=== PATIENT | male | born 1945 | race Caucasian/White ===

== ENCOUNTER → 2016-08-22 | Outpatient (CLI) | payer OTHER, BC ==
[~2016-08-22] MED LIST: ASPI81TA28 PO; ATOR-24 PO; CHOL1000 PO; FENO160T PO; GABA-113 PO; HYDR-3419 PO; INSU32MI13 SC; INSU70IN2 SC; METO50TA17 PO; MULT-506 PO; NVLG SC; OMEG10007 PO; PRT40 PO; RIVA1TAB4 PO; SERT50TA PO
[2016-08-22 18:23] LABS: ALT/SGPT 31 U/L (12-78); AST/SGOT 26 U/L (15-37); BLOOD UREA NITROGEN 23 mg/dl (7-18); BUN/CREATININE RATIO 13.3 (10-20); CALCIUM 9.5 mg/dl (8.5-10.1); CARBON DIOXIDE 23 mmol/L (21-32); CHLORIDE 109 mmol/L (98-107); CHOLESTEROL 141 mg/dl (0-200); GLUCOSE 87 mg/dl (70-99); POTASSIUM 4.5 mmol/L (3.5-5.1); SODIUM 141 mmol/L (136-145)
[2016-08-22 18:25] LABS: ALKALINE PHOSPHATASE 53 U/L (45-117); CHOLESTEROL/HDL RATIO 3.8; HDL CHOLESTEROL 37 mg/dl; LDL CHOLESTEROL CALCULATED 69 mg/dl; TRIGLYCERIDES 174 mg/dl (0-150); VERY LOW DENSITY LIPOPROT CALC 35 mg/dl
[2016-08-23 06:33] LABS: ESTIMATED AVERAGE GLUCOSE 263 mg/dl; HA1C FLAG Normal (Normal)
== END | disposition home or self-care (01) ==
LOC: C.LABPVFM 11:59
PROVIDERS: ATTEND Family Medicine
DX: E11.40 Type 2 diabetes mellitus with diabetic neuropathy, unspecified (principal); K21.0 Gastro-esophageal reflux disease with esophagitis; R53.83 Other fatigue; E11.59 Type 2 diabetes mellitus with other circulatory complications; I48.91 Unspecified atrial fibrillation

== ENCOUNTER → 2016-11-10 | Outpatient (CLI) | payer OTHER, BC ==
[2016-11-10 18:53] LABS: ALT/SGPT 53 U/L (12-78); AST/SGOT 63 U/L (15-37); BLOOD UREA NITROGEN 27 mg/dl (7-18); BUN/CREATININE RATIO 16.1 (10-20); CALCIUM 9.5 mg/dl (8.5-10.1); CARBON DIOXIDE 22 mmol/L (21-32); CHLORIDE 108 mmol/L (98-107); GLUCOSE 223 mg/dl (70-99); POTASSIUM 5.7 mmol/L (3.5-5.1); SODIUM 138 mmol/L (136-145)
[2016-11-10 18:56] LABS: ALKALINE PHOSPHATASE 55 U/L (45-117)
[2016-11-11 05:54] LABS: ESTIMATED AVERAGE GLUCOSE 292 mg/dl; HA1C FLAG Normal (Normal)
== END | disposition home or self-care (01) ==
LOC: C.LABPVFM 12:54
PROVIDERS: ATTEND Family Medicine
DX: E11.65 Type 2 diabetes mellitus with hyperglycemia (principal); I10 Essential (primary) hypertension

== ENCOUNTER → 2016-11-23 | Outpatient (CLI) | payer OTHER, BC | END | disposition home or self-care (01) | LOC: C.LABPVFM 11:56 | PROVIDERS: ATTEND Family Medicine | DX: E87.5 Hyperkalemia (principal) ==

== ENCOUNTER → 2016-11-29 | Outpatient (CLI) | payer OTHER, BC ==
--- NOTE | 2016-11-29 11:10 | DIAGNOSTIC IMAGING REPORT ---
RENAL ULTRASOUND HISTORY: Renal insufficiency R79.89 Elevated serum [id number] COMPARISON: None. FINDINGS: Right kidney: Maximum dimension 12.0 cm. Mild renal cortical scarring. No evidence for hydronephrosis. Left kidney: Maximum dimension 12.0 cm. Normal corticomedullary differentiation and cortical thickness. Bladder: No bladder wall thickening. The bilateral ureteral jets were identified. IMPRESSION: Mild renal cortical scarring of the right kidney. Otherwise normal study. No evidence for hydronephrosis. Electronically signed by: Balbir Trejo M.D. 11/29/2016 11:09 AM Dictated Date/Time: 11/29/2016 11:08 AM
== END | disposition home or self-care (01) ==
LOC: C.ULTR 10:12
PROVIDERS: ATTEND Family Medicine
DX: R79.89 Other specified abnormal findings of blood chemistry (principal)

== ENCOUNTER → 2017-01-31 | Outpatient (CLI) | payer OTHER, BC ==
[2017-01-31 17:54] LABS: CHOLESTEROL/HDL RATIO 4.5
[2017-01-31 17:57] LABS: URINE APPEARANCE CLEAR (CLEAR); URINE BILIRUBIN NEG (NEG); URINE COLOR YELLOW; URINE EPITHELIAL CELL AUTO 0-5 /lpf (0-5); URINE NITRITE NEG (NEG); URINE SPECIFIC GRAVITY 1.017 (1.000-1.030); UROBILINOGEN NEG (NEG); ZZUR CULT IF INDIC CLEAN CATCH NO
[2017-01-31 17:58] LABS: URINE TOTAL PROTEIN < 5.0 mg/dl (0-11.9)
[2017-01-31 18:00] LABS: MANUAL MICROSCOPIC REQUIRED? NO; REVIEW REQ? NO
[2017-01-31 18:14] LABS: BLOOD UREA NITROGEN 29 mg/dl (7-18); BUN/CREATININE RATIO 14.3 (10-20); CALCIUM 9.7 mg/dl (8.5-10.1); CARBON DIOXIDE 25 mmol/L (21-32); CHLORIDE 103 mmol/L (98-107); GLUCOSE 437 mg/dl (70-99); MAGNESIUM 1.8 mg/dl (1.8-2.4); PHOSPHORUS 3.4 mg/dl (2.5-4.9); SODIUM 136 mmol/L (136-145)
[2017-01-31 18:29] LABS: BETA-HYDROXYBUTYRATE 1.03 mg/dL (0.2-2.81)
--- NOTE | 2017-02-07 08:12 | CODING QUERY MEDICAL NECESSITY ---
CQSUPPORTING DIAGNOSIS NEEDED A supporting diagnosis is required for the test/procedure performed on this patient in order for us to be reimbursed by the patient's insurance. Please provide a supporting diagnosis for the following test/procedure listed below next to the test name along with your signature. *If there is no additional diagnosis for this patient that would support the following test/procedure please document that below next to the test/procedure. Test(s)/Procedure(s) that require a supporting diagnosis: STEPH 01/31/17 VITAMIN D TEST Provider Signature: Date: Thank you Steffi Vines [facility] Information Management Once completed, please kindly fax back to [phone] For questions please call [phone]
== END | disposition home or self-care (01) ==
LOC: C.LABPVFM 14:22
PROVIDERS: ATTEND Internal Medicine Cardiovascular Disease
DX: N18.9 Chronic kidney disease, unspecified (principal); E78.5 Hyperlipidemia, unspecified

== ENCOUNTER → 2017-05-08 | Outpatient (CLI) | payer OTHER, BC ==
--- NOTE | 2017-05-08 12:14 | DIAGNOSTIC IMAGING REPORT ---
ABDOMEN COMPLETE (US) CLINICAL HISTORY: 71 years-old Male presenting with ASCITES. TECHNIQUE: Real-time grayscale and limited color Doppler ultrasound imaging of the abdomen was performed. COMPARISON: CT from 05/06/2016. FINDINGS: Pancreas: Largely obscured due to overlying bowel gas. Liver: Hyperechogenic parenchyma with heterogeneous echotexture, likely indicating fibrosis. The liver measures 16 cm in maximal sagittal dimension. No sonographic evidence of hepatic mass. Main portal vein patent with normal directional flow. However, the left portal vein does not demonstrate color Doppler flow and may be occluded. Biliary: No intrahepatic biliary ductal dilatation. Common bile duct measures up to 4 mm in diameter. Gallbladder: Possible small gallstones near the gallbladder neck. No abnormal gallbladder distention, gallbladder wall thickening, or pericholecystic fluid or inflammatory change. Spleen: Hyperechogenic portion of the superior pole the spleen likely correlates to the site of prior infarct. The spleen is mildly enlarged, measuring 14.6 cm in length. Kidneys: Normal in size and echogenicity. Right kidney measures 11.4 cm, and left kidney measures 11.5 cm. No hydronephrosis. Vasculature: Abdominal aorta and IVC not visualized secondary to overlying bowel gas. Ascites: None. IMPRESSION: 1. Findings consistent with hepatic fibrosis/cirrhosis. Portal hypertension evidenced by splenomegaly. 2. Findings concerning for thrombosis of the left portal vein, although the main portal vein appears patent with normal directional flow. 3. Chronic splenic infarct. 4. No evidence of ascites. The report will be called/faxed according to standard departmental protocol. Electronically signed by: Kris Nichols M.D. 05/08/2017 12:12 PM Dictated Date/Time: 05/08/2017 12:08 PM
== END | disposition home or self-care (01) ==
LOC: C.ULTR 11:23
PROVIDERS: ATTEND Internal Medicine Gastroenterology
DX: K74.60 Unspecified cirrhosis of liver (principal)

== ENCOUNTER → 2017-07-18 | Outpatient (CLI) | payer OTHER, BC ==
[2017-07-18 19:33] LABS: ALBUMIN 3.5 gm/dl (3.4-5.0); BLOOD UREA NITROGEN 33 mg/dl (7-18); CALCIUM 10.1 mg/dl (8.5-10.1); CARBON DIOXIDE 24 mmol/L (21-32); CREATININE 2.19 mg/dl (0.60-1.40); GLUCOSE 369 mg/dl (70-99); PHOSPHORUS 2.7 mg/dl (2.5-4.9); POTASSIUM 4.6 mmol/L (3.5-5.1); SODIUM 134 mmol/L (136-145)
[2017-07-19 07:30] LABS: HEMOGLOBIN A1C 10.2 % (4.5-5.6)
== END | disposition home or self-care (01) ==
LOC: C.LABPVFM 14:52
PROVIDERS: ATTEND Internal Medicine Cardiovascular Disease
DX: E11.22 Type 2 diabetes mellitus with diabetic chronic kidney disease (principal); N18.3 Chronic kidney disease, stage 3 (moderate); R53.83 Other fatigue; E11.49 Type 2 diabetes mellitus with other diabetic neurological complication; E11.65 Type 2 diabetes mellitus with hyperglycemia; Z79.4 Long term (current) use of insulin; E78.5 Hyperlipidemia, unspecified

== ENCOUNTER 2018-01-18 15:25 | Inpatient (IN) | payer OTHER, BC ==
[~2018-01-18] VITALS: Ht 177.8 cm; Wt 108.5 kg
[2018-01-18] VITALS (10 sets, daily range): BP systolic 105–130; BP diastolic 68–85; PULSE 64–74; TEMP 36.5–36.8; O2SAT 95–99; BMI 32.7
[~2018-01-18 15:25] MED LIST changes: +AMT10 PO; +DOXY-300 PO; +FURO-85 PO; -HYDR-3419 PO; +HYDR-5688 PO; +INSULIN REGULAR 250 UNITS in SODIUM CHLORIDE 0.9% 250ML 250 ML IV SCH; -METO50TA17 PO; +NADO20TA PO; -NVLG SC; +PANT1TAB4 PO; -PRT40 PO; +RIFA550T2 PO; -RIVA1TAB4 PO; +SPIR50TA2 PO; +XRL15 PO
--- NOTE | 2018-01-18 16:48 | DIAGNOSTIC IMAGING REPORT ---
CHEST ONE VIEW PORTABLE CLINICAL HISTORY: Gastrointestinal hemorrhage COMPARISON STUDY: 12/05/2017 FINDINGS: The heart is mildly enlarged. There is no failure. There is no focal pulmonary consolidation. There are no pleural effusions. There is no pneumoperitoneum. There is a linear density at the left lung base, likely representing scar/atelectasis.[ IMPRESSION: No active disease in the chest. Electronically signed by: Nik Campos M.D. 01/18/2018 4:47 PM Dictated Date/Time: 01/18/2018 4:46 PM
[2018-01-18 16:49] LABS: HEMATOCRIT 30.3 % (42-52); HEMOGLOBIN 8.9 g/dL (14.0-18.0); MEAN CELL VOLUME 74.4 fL (80-100); MEAN CORPUSCULAR HEMOGLOBIN 21.9 pg (25-34); MEAN CORPUSCULAR HGB CONC 29.4 g/dl (32-36); MEAN PLATELET VOLUME 11.1 fL (7.4-10.4); PLATELET COUNT 309 K/uL (130-400); RED CELL DISTRIBUTION WIDTH CV 17.2 % (11.5-14.5); RED CELL DISTRIBUTION WIDTH SD 46.6 fL (36.4-46.3)
[2018-01-18 16:52] LABS: INR 1.4 (0.9-1.1); PTT PATIENT 31.6 SECONDS (21.0-31.0)
[2018-01-18 17:16] LABS: ALKALINE PHOSPHATASE 63 U/L (45-117); ALT/SGPT 30 U/L (12-78); AST/SGOT 41 U/L (15-37); BLOOD UREA NITROGEN 38 mg/dl (7-18); CARBON DIOXIDE 24 mmol/L (21-32); CREATININE 2.69 mg/dl (0.60-1.40); GLUCOSE 670 mg/dl (70-99); LIPASE 200 U/L (73-393); POTASSIUM 5.3 mmol/L (3.5-5.1); SODIUM 124 mmol/L (136-145); TOTAL PROTEIN 7.3 gm/dl (6.4-8.2)
[2018-01-18] MEDS ORDERED: NovoLIN-R INSULIN PER UNIT CHARGE IV STA (18:02)
[2018-01-18] MEDS ORDERED: SODIUM CHLORIDE 0.9% 1000ML 1,000 ML IV STA (18:02)
[2018-01-18 18:04] LABS: BASO % 0.2 %; BASO ABS # 0.02 K/uL (0-0.2); EOS % 0.8 %; EOS ABS # 0.07 K/uL (0-0.5); IG# 0.07 K/uL (0.00-0.02); LYMPH % 15.4 %; LYMPH ABS # 1.31 K/uL (1.2-3.4); MONO % 9.9 %; MONO ABS # 0.84 K/uL (0.11-0.59); NEUT % 72.9 %; NEUT ABS # 6.19 K/uL (1.4-6.5)
[2018-01-18] MEDS ORDERED: SODIUM CHLORIDE 0.9% 500ML 500 ML IV STA (18:06)
[2018-01-18] MEDS ORDERED: MoRPHine SULFATE 4 MG/ML 1 ML CARP\\VIAL IV STA (18:23)
--- NOTE | 2018-01-18 18:45 | EMERGENCY ROOM VISIT NOTE ---
History Report prepared by Arpit: Alexandria Solis Under the Supervision of: Dr. Layton Espinosa M.D. First contact with patient: 16:00 Chief Complaint: WEAKNESS Stated Complaint: SENT BY DOCTOR Nursing Triage Summary: pt arrives from triage pt appears very pale and unsteady pt reports dizziness and low hemoglobin pt alert and oriented to person and place and time, intermittent confusion per pt has some blood in stool, patient denies also reports pt is on blood thinners History of Present Illness The patient is a 72 year old male who presents to the Emergency Room with complaints of constant weakness over the last 6 days. Per family, the patient had blood work done a couple of weeks ago and states that the patient was anemic. Per family, the patient became weak and was unable to walk over the last 6 days. The patient reports feeling light-headed and close to passing out. Per family, the patient has also had increased pallor. The patient denies a history of being anemic. The patient reports having a "smudge of blood" in his stool but reports that he has hemorrhoids. Per family, the patient has cirrhosis of his liver but denies a history of alcohol use. Pt denies LOC, headache, fevers, chills, diaphoresis, neck pain, chest pain, breathing difficulties, nausea, vomiting, back pain, lymphadenopathy, rash, sorethroat, or other complaints. Source of History: patient, family Onset: over the last 6 days Position: other (generalized ) Quality: other (weakness) Timing: constant Associated Symptoms: No LOC, No fevers, No chills, No headache, No diaphoresis, No neck pain, No chest pain, No nausea, No vomiting Note: additional symptoms: pallor, light-headed Review of Systems See HPI for pertinent positives and negatives. A total of ten systems were reviewed and were otherwise negative. Past Medical & Surgical Medical Problems: (1) Acute diarrhea (2) Atrial fibrillation (3) Cirrhosis (4) Diabetes (5) Hypertension Family History Patient reports no known family medical history. Social History Smoking Status: Former Smoker Alcohol Use: none Drug Use: none Marital Status: Housing Status: lives with significant other Occupation Status: retired Current/Historical Medications Scheduled Aspirin (Aspirin Ec), 81 MG PO DAILY Atorvastatin (Lipitor), 40 MG PO HS Cholecalciferol (Vitamin D3), 1 TAB PO DAILY Fenofibrate (Tricor), 160 MG PO DAILY Fish Oil ([place]-3), 2 CAP PO BID Furosemide (Lasix), 20 MG PO DAILY Gabapentin (Neurontin), 1,200 MG PO DAILY Insulin Isophan/Regular (Novolin 70/30), 150 SC BID Multivitamin (Multivitamin), 1 TAB PO DAILY Nadolol (Corgard), 20 MG PO BID Pantoprazole (Pantoprazole Sodium), 40 MG PO BID Rifaximin (Xifaxan), 550 MG PO BID Rivaroxaban (Xarelto), 1 TAB PO DAILY Sertraline (Zoloft), 25 MG PO HS Spironolactone (Aldactone), 50 MG PO DAILY Scheduled PRN Hydrocodone/Acetaminophen 5MG/325MG ([place] 5MG/325MG), 1 TABLET PO for Pain Durable Medical Equipment Insulin Pen Needle (Bd Pen Needle/Nelly/Ultra), BOX SC TID Allergies Coded Allergies: No Known Allergies (Unverified , 01/18/18) Physical Exam Vital Signs Date Time Temp Pulse Resp B/P (MAP) Pulse Ox O2 Delivery O2 Flow Rate FiO2 01/18/18 17:38 83 16 117/66 93 Room Air 01/18/18 16:51 81 01/18/18 15:49 94 Room Air 01/18/18 15:33 37.2 72 18 102/66 97 Room Air Physical Exam GENERAL: Awake, alert,pale, fatigued appearing, in no distress HENT: Normocephalic, atraumatic. Oropharynx unremarkable. EYES: Normal conjunctiva. Sclera non-icteric. NECK: Supple. No nuchal rigidity. FROM. No masses. RESPIRATORY: Clear to auscultation. No wheezes. No rales. Normal respiratory effort. CARDIAC: Normal rate. Irregular rhythm. No murmurs. No rubs. Extremities warm and well perfused. Pulses equal. No JVD. GI: Soft, non-distended. Mild right upper quadrant tenderness. No rebound or guarding. No masses. RECTAL: Deferred. MUSCULOSKELETAL: Atraumatic. Chest examination reveals no tenderness. The back is symmetrical on inspection without obvious abnormality. There is no CVA tenderness to palpation. No joint edema. LOWER EXTREMITIES: Calves are equal size bilaterally and non-tender. No edema. No discoloration. NEURO: Normal sensorium. No sensory or motor deficits noted. SKIN: No rash or jaundice noted. Medical Decision & Procedures ER Provider Diagnostic Interpretation: Radiology results as stated below per my review and radiologist interpretation: CHEST ONE VIEW PORTABLE CLINICAL HISTORY: Gastrointestinal hemorrhage COMPARISON STUDY: 12/05/2017 FINDINGS: The heart is mildly enlarged. There is no failure. There is no focal pulmonary consolidation. There are no pleural effusions. There is no pneumoperitoneum. There is a linear density at the left lung base, likely representing scar/atelectasis.[ IMPRESSION: No active disease in the chest. Electronically signed by: Nik Campos M.D. 01/18/2018 4:47 PM Dictated Date/Time: 01/18/2018 4:46 PM Laboratory Results 01/18/18 16:13 Red Blood Count 4.07, Mean Corpuscular Volume 74.4, Mean Corpuscular Hemoglobin 21.9, Mean Corpuscular Hemoglobin Concent 29.4, Mean Platelet Volume 11.1, Neutrophils (%) (Auto) 72.9, Lymphocytes (%) (Auto) 15.4, Monocytes (%) (Auto) 9.9, Eosinophils (%) (Auto) 0.8, Basophils (%) (Auto) 0.2, Neutrophils # (Auto) 6.19, Lymphocytes # (Auto) 1.31, Monocytes # (Auto) 0.84, Eosinophils # (Auto) 0.07, Basophils # (Auto) 0.02 01/18/18 16:13 Test 01/18/18 16:13 01/18/18 16:16 01/18/18 16:48 White Blood Count 8.50 K/uL (4.8-10.8) Red Blood Count 4.07 M/uL (4.7-6.1) Hemoglobin 8.9 g/dL (14.0-18.0) Hematocrit 30.3 % (42-52) Mean Corpuscular Volume 74.4 fL (80-100) Mean Corpuscular Hemoglobin 21.9 pg (25-34) Mean Corpuscular Hemoglobin Concent 29.4 g/dl (32-36) Platelet Count 309 K/uL (130-400) Mean Platelet Volume 11.1 fL (7.4-10.4) Neutrophils (%) (Auto) 72.9 % Lymphocytes (%) (Auto) 15.4 % Monocytes (%) (Auto) 9.9 % Eosinophils (%) (Auto) 0.8 % Basophils (%) (Auto) 0.2 % Neutrophils # (Auto) 6.19 K/uL (1.4-6.5) Lymphocytes # (Auto) 1.31 K/uL (1.2-3.4) Monocytes # (Auto) 0.84 K/uL (0.11-0.59) Eosinophils # (Auto) 0.07 K/uL (0-0.5) Basophils # (Auto) 0.02 K/uL (0-0.2) RDW Standard Deviation 46.6 fL (36.4-46.3) RDW Coefficient of Variation 17.2 % (11.5-14.5) Immature Granulocyte % (Auto) 0.8 % Immature Granulocyte # (Auto) 0.07 K/uL (0.00-0.02) Polychromasia 1+ Hypochromasia PRESENT Ovalocytes 2+ Anion Gap 8.0 mmol/L (3-11) Estimated GFR () 26.2 Estimated GFR (Non- 22.6 BUN/Creatinine Ratio 14.3 (10-20) Calcium Level 9.0 mg/dl (8.5-10.1) Magnesium Level 1.8 mg/dl (1.8-2.4) Total Bilirubin 0.6 mg/dl (0.2-1) Direct Bilirubin 0.3 mg/dl (0-0.2) Aspartate Amino Transf (AST/SGOT) 41 U/L (15-37) Alanine Aminotransferase (ALT/SGPT) 30 U/L (12-78) Alkaline Phosphatase 63 U/L (45-117) Troponin I < 0.015 ng/ml (0-0.045) Total Protein 7.3 gm/dl (6.4-8.2) Albumin 3.0 gm/dl (3.4-5.0) Lipase 200 U/L (73-393) Beta-Hydroxybutyric Acid 1.10 mg/dL (0.2-2.81) Prothrombin Time 14.2 SECONDS (9.0-12.0) Prothromb Time International Ratio 1.4 (0.9-1.1) Activated Partial Thromboplast Time 31.6 SECONDS (21.0-31.0) Partial Thromboplastin Ratio 1.2 Urine Color YELLOW Urine Appearance CLEAR (CLEAR) Urine pH 5.0 (4.5-7.5) Urine Specific [place] 1.021 (1.000-1.030) Urine Protein NEG (NEG) Urine Glucose (UA) 3+ (NEG) Urine Ketones NEG (NEG) Urine Occult Blood NEG (NEG) Urine Nitrite NEG (NEG) Urine Bilirubin NEG (NEG) Urine Urobilinogen NEG (NEG) Urine Leukocyte Esterase NEG (NEG) Laboratory results reviewed by me Medications Administered Medications (Trade) Dose Ordered Sig/Jeff Route Start Time Stop Time Status Last Admin Dose Admin Sodium Chloride 1,000 ml @ 125 mls/hr Q8H STAT IV 01/18/18 18:02 01/19/18 02:01 01/18/18 18:02 125 MLS/HR Insulin Human Regular (novoLIN-R U-100 PER UNIT) 10 units NOW STAT IV 01/18/18 18:02 01/18/18 18:04 DC 01/18/18 18:02 10 UNITS Sodium Chloride 500 ml @ 999 mls/hr Q31M STAT IV 01/18/18 18:06 01/18/18 18:36 DC 01/18/18 18:06 999 MLS/HR Morphine Sulfate (MoRPHine SULFATE INJ) 4 mg NOW STAT IV 01/18/18 18:23 01/18/18 18:24 DC 01/18/18 18:33 4 MG ECG Per My Interpretation Indication: weakness Rate (beats per minute): 79 Rhythm: atrial fibrillation Findings: Q waves (Inferior), RBBB (incomplete ), other (no ST elevations, no ST depressions) ED Course 1650: The patient was evaluated in room C10. A complete history and physical exam was performed. 180: Ordered Insulin Human Regular 10 units IV, Sodium Chloride 1000 ml @ 125 mls/hr IV. 180: Ordered Sodium Chloride 500 ml @ 999 mls/hr IV. 1814: Upon reexamination, the patient was resting. I discussed the test results and treatment plan with him. The patient will be evaluated for further management by Dr. Quinonez. 1823: Ordered Morphine Sulfate 4 mg IV. Medical Decision Prior records/ancillary studies reviewed and summarized above. Nursing notes reviewed and agree them. Additional history obtained from patient's family. The patient's history was concerning for weakness. Differential diagnosis: Etiologies such as metabolic, anemia, infection, hypo/hyperglycemia, electrolyte abnormalities, cardiac sources, intracerebral event, toxicologic, neurologic, as well as others were entertained. Physical examination: As above. ER treatment provided: IV Lock Normal saline hydration IV insulin Typed and crossed and consented for blood transfusion. Red blood cell transfusion held as his hemoglobin was above 8. On reassessment the patient felt better. Diagnostics interpretation by me: ECG: No acute ischemia The labs revealed a moderate anemia on CBC. Chemistry panel revealed pseudohyponatremia as well as severe hyperglycemia. Mild hyperkalemia present. Troponin negative. Imaging studies: Chest x-ray as above. Right upper quadrant ultrasound pending. Patient has severe hyperglycemia. He is anemic and bordering on a need for transfusion. He was consented however he was not transfused. Further management and workup will be necessary in the hospital. I gave my usual and customary discussion regarding this issue. Consultation: A consultation was placed with the hospitalist. The case was discussed and diagnostics were reviewed. The patient was evaluated in the ER for further treatment. Medication Reconcilliation Current Medication List: was personally reviewed by me Blood Pressure Screening Patient's blood pressure: Normal blood pressure Consults Time Called: 1800 Consulting Physician: Dr. Salazar [facility] Hospitalist Returned Call: [phone] Discussed the patient's case. The patient will be evaluated for further treatment and disposition. Impression Primary Impression: Weakness Additional Impressions: Hyperglycemia Hyponatremia Hyperkalemia Anemia Scribe Attestation The scribe's documentation has been prepared under my direction and personally reviewed by me in its entirety. I confirm that the note above accurately reflects all work, treatment, procedures, and medical decision making performed by me. Departure Information Dispostion Being Evaluated By Hospitalist Referrals Rocio Damico M.D. (PCP) Patient Instructions My [facility] Problem Qualifiers
[2018-01-18] MEDS ORDERED: MAGNESIUM HYDROXIDE SUSP 30 ML UDC PO PRN (20:15)
[2018-01-18] MEDS ORDERED: ACETAMINOPHEN 325 MG TAB PO PRN (20:15)
[2018-01-18] MEDS ORDERED: CARBOHYDRATES FOR HYPOGLYCEMIA PO PRN (20:15)
[2018-01-18] MEDS ORDERED: POLYETHYLENE (MIRALAX) 17 GM PACK PO PRN (20:15)
[2018-01-18] MEDS ORDERED: DEXTROSE 50% 50 ML SYR IV PRN (20:15)
[2018-01-18] MEDS ORDERED: ONDANSETRON INJ 2 MG/ML 2 ML VIAL IV PRN (20:15)
[2018-01-18] MEDS ORDERED: GLUCOSE 10 TABS/TUBE PO PRN (20:15)
[2018-01-18] MEDS ORDERED: GLUCAGON FOR INJ 1 MG VIAL SQ PRN (20:15)
[2018-01-18] MEDS ORDERED: GLUCOSE 40% GEL 15 GM TUBE PO PRN (20:15)
[2018-01-18] MEDS ORDERED: ALUMINUM/MAGNESIUM/SIMETH (MAALOX MAX) 30 ML UDC PO PRN (20:15)
--- NOTE | 2018-01-18 20:30 | History and Physical ---
History & Physical Date & Time of Service: Jan 18, 2018 at 20:19 Chief Complaint: Sent By Doctor Primary Care Physician: Rocio Damico M.D. History of Present Illness 72y/oM with hx of HLD, HTN, Afib, splenic infarct in 2016, poorly controlled DM2 (insulin dependent), compensated non-alcoholic cirrhosis with esophageal varices and external hemorrhoids, erosive gastritis, and depression presents with excessive weakness, dizziness and pallor x 1 week. Pt reports having blood work a few weeks ago and being anemic. Over the past week, he has become excessively weak to the point that he cannot walk and is now wheelchair bound. He has also felt dizzy and almost passed out. has also noted bright red blood filling the toilet after BMs. Stool looks brown. He has also been sleeping more, having chills and his appetite has decreased. Denies any fever, GARZON, cp, sob, abdominal pain, n/v, diarrhea/constipation, dysuria or increased urinary frequency ED interval hx: Found to have Hgb of 8.9 and BSG of 670 with pseudohyponatremia , hyperkalemia and YUSRA. Received Regular insulin 10u, NS 1L and 125mls/hr l and morphine 4mg x 1 Past Medical/Surgical History Medical Problems: (1) Acute diarrhea (2) Anemia (3) Atrial fibrillation (4) Atrial fibrillation with RVR (5) Cholecystitis (6) Cirrhosis (7) CKD (chronic kidney disease) (8) Diabetes (9) Diabetic foot ulcers (10) Diffuse abdominal pain (11) Gastritis (12) Hyperkalemia (13) Hypertension (14) Hypoglycemia (15) Medication side effect (16) Nausea Family History Patient reports no known family medical history. Social History Smoking Status: Former Smoker Drug Use: none Marital Status: Housing status: lives with family Occupational Status: retired Allergies Coded Allergies: No Known Allergies (Unverified , 01/18/18) Home Medications Scheduled Aspirin (Aspirin Ec), 81 MG PO DAILY Atorvastatin (Lipitor), 40 MG PO HS Cholecalciferol (Vitamin D3), 1 TAB PO DAILY Fenofibrate (Tricor), 160 MG PO DAILY Fish Oil ([place]-3), 2 CAP PO BID Furosemide (Lasix), 20 MG PO DAILY Gabapentin (Neurontin), 1,200 MG PO DAILY Insulin Isophan/Regular (Novolin 70/30), 150 SC BID Multivitamin (Multivitamin), 1 TAB PO DAILY Nadolol (Corgard), 20 MG PO BID Pantoprazole (Pantoprazole Sodium), 40 MG PO BID Rifaximin (Xifaxan), 550 MG PO BID Rivaroxaban (Xarelto), 1 TAB PO DAILY Sertraline (Zoloft), 25 MG PO HS Spironolactone (Aldactone), 50 MG PO DAILY Scheduled PRN Hydrocodone/Acetaminophen 5MG/325MG ([place] 5MG/325MG), 1 TABLET PO for Pain Review of Systems Constitutional: + chills, + weakness, + fatigue, No fever Respiratory: No shortness of breath Cardiovascular: No chest pain Abdomen: + GI bleeding, No pain, No nausea, No vomiting, No diarrhea, No constipation Genitourinary - Male: No dysuria, No urinary frequency Physical Exam Vital Signs Date Time Temp Pulse Resp B/P (MAP) Pulse Ox O2 Delivery O2 Flow Rate FiO2 01/18/18 19:45 76 18 131/77 94 Room Air 01/18/18 17:38 83 16 117/66 93 Room Air 01/18/18 16:51 81 01/18/18 15:49 94 Room Air 01/18/18 15:33 37.2 72 18 102/66 97 Room Air General Appearance: + obese, + pertinent finding (appears very pale and exhausted ) Head: normocephalic, atraumatic Eyes: normal inspection ENT: hearing grossly normal Respiratory/Chest: lungs clear, normal breath sounds, no respiratory distress Cardiovascular: no murmur, + abnormal rhythm Abdomen/GI: normal bowel sounds, non tender, soft Extremities/Musculoskelatal: no calf tenderness, + swelling (trace b/l ankles with weak pulses) Neurologic/Psych: alert, oriented x 3 Skin: + pallor, + pertinent finding (multiple excoriated and erythematous insect bite lesions on extremities and abdomen ) Diagnostics Laboratory Results Results Past 24 Hours Test 01/18/18 16:13 01/18/18 16:16 01/18/18 16:48 01/18/18 19:59 Range/Units White Blood Count 8.50 4.8-10.8 K/uL Red Blood Count 4.07 4.7-6.1 M/uL Hemoglobin 8.9 14.0-18.0 g/dL Hematocrit 30.3 42-52 % Mean Corpuscular Volume 74.4 80-100 fL Mean Corpuscular Hemoglobin 21.9 25-34 pg Mean Corpuscular Hemoglobin Concent 29.4 32-36 g/dl Platelet Count 309 130-400 K/uL Mean Platelet Volume 11.1 7.4-10.4 fL Neutrophils (%) (Auto) 72.9 % Lymphocytes (%) (Auto) 15.4 % Monocytes (%) (Auto) 9.9 % Eosinophils (%) (Auto) 0.8 % Basophils (%) (Auto) 0.2 % Neutrophils # (Auto) 6.19 1.4-6.5 K/uL Lymphocytes # (Auto) 1.31 1.2-3.4 K/uL Monocytes # (Auto) 0.84 0.11-0.59 K/uL Eosinophils # (Auto) 0.07 0-0.5 K/uL Basophils # (Auto) 0.02 0-0.2 K/uL RDW Standard Deviation 46.6 36.4-46.3 fL RDW Coefficient of Variation 17.2 11.5-14.5 % Immature Granulocyte % (Auto) 0.8 % Immature Granulocyte # (Auto) 0.07 0.00-0.02 K/uL Polychromasia 1+ Hypochromasia PRESENT Ovalocytes 2+ Sodium Level 124 136-145 mmol/L Potassium Level 5.3 3.5-5.1 mmol/L Chloride Level 92 98-107 mmol/L Carbon Dioxide Level 24 21-32 mmol/L Anion Gap 8.0 3-11 mmol/L Blood Urea Nitrogen 38 7-18 mg/dl Creatinine 2.69 0.60-1.40 mg/dl Estimated GFR () 26.2 Estimated GFR (Non- 22.6 BUN/Creatinine Ratio 14.3 10-20 Random Glucose 670 70-99 mg/dl Calcium Level 9.0 8.5-10.1 mg/dl Magnesium Level 1.8 1.8-2.4 mg/dl Total Bilirubin 0.6 0.2-1 mg/dl Direct Bilirubin 0.3 0-0.2 mg/dl Aspartate Amino Transf (AST/SGOT) 41 15-37 U/L Alanine Aminotransferase (ALT/SGPT) 30 12-78 U/L Alkaline Phosphatase 63 45-117 U/L Troponin I < 0.015 0-0.045 ng/ml Total Protein 7.3 6.4-8.2 gm/dl Albumin 3.0 3.4-5.0 gm/dl Lipase 200 73-393 U/L Beta-Hydroxybutyric Acid 1.10 0.2-2.81 mg/dL Prothrombin Time 14.2 9.0-12.0 SECONDS Prothromb Time International Ratio 1.4 0.9-1.1 Activated Partial Thromboplast Time 31.6 21.0-31.0 SECONDS Partial Thromboplastin Ratio 1.2 Urine Color YELLOW Urine Appearance CLEAR CLEAR Urine pH 5.0 4.5-7.5 Urine Specific [place] 1.021 1.000-1.030 Urine Protein NEG NEG Urine Glucose (UA) 3+ NEG Urine Ketones NEG NEG Urine Occult Blood NEG NEG Urine Nitrite NEG NEG Urine Bilirubin NEG NEG Urine Urobilinogen NEG NEG Urine Leukocyte Esterase NEG NEG Bedside Glucose > 600 70-99 mg/dl Diagnostic Radiology CHEST ONE VIEW PORTABLE CLINICAL HISTORY: Gastrointestinal hemorrhage COMPARISON STUDY: 12/05/2017 FINDINGS: The heart is mildly enlarged. There is no failure. There is no focal pulmonary consolidation. There are no pleural effusions. There is no pneumoperitoneum. There is a linear density at the left lung base, likely representing scar/atelectasis.[ IMPRESSION: No active disease in the chest. EKG 79 AFib QTc 477 with RBBB Impression Assessment and Plan 72y/oM with hx of HLD, HTN, Afib (on xarelto), splenic infarct in 2016, poorly controlled DM2 (insulin dependent), compensated non-alcoholic cirrhosis with esophageal varices and external hemorrhoids, erosive gastritis, and depression presents with worsening weakness, dizziness and pallor x 1 week likely in the setting of lower GI bleed (diverticular vs. hemorrhoidal). Found to have Hgb of 8.9. Also found to have elevated BSG of 670 with normal Bhydroxybutyric acid and pseudohyponatremia of 124. K elevated to 5.3 and Cr to 2.7 likely from acute YUSRA in the setting of CKD. Pt has hx of cirrhosis with mildly elevated AST. Admitted for transfusion and work up of GI bleed. Lower GI bleed (BRB per rectum) - vitals wnl - Hgb now 8.9 (/14 - 7.8 and 7/3 - 8.8) - Typed and crossed - 2 units on hold - Tranfused with 1 unit of pRBC given hx of CAD in the setting of significant symptoms and dehydration (Hgb likely lower than it appears) - Hold aspirin and xarelto - GI consulted: Dr. King - Clear diet - Monitor symptomatically - Follow CBC Poorly controlled DM2 (insulin dependent) - Elevated Glucose 670 on arrival - Bhydroxybutyric acid nl 1.1 - Continue home gabapentin - Received 10 u regular insulin in the ED - Started on SSI with BSG checks Compensated Cirrhosis (no hx of alcohol use); esophageal varices; hemorrhoids - AST 41 - Ordered Abdominal Ultrasound (given initial concern for RUQ TTP) - Continue nadolol 20mg BID - Continue Rifaximin 550mg BID - Continue Spironolactone 50mg daily YUSRA (likely in the setting of CKD?) - Cr at baseline 2.2 - Elevated to 2.7 - Received IVF NS - Monitor BMP HTN/HLD/AFib - Continue home nadolol 20mg BID - Continue home fish oil, fenofibrate and atorvastatin - Hold aspirin and Xarelto Depression - Continue Sertraline 25mg HS FEN/GI - hx of erosive gastritis - Continue Protonix - Pseudohyponatremia 124 -> corrects to 130 likely from elevated glucose: received IVF NS - K 5.3 (appears to be chronic) - Monitor electrolytes DVT prop: SCD/TEDs Code: Full Dispo: pending clinical improvement and further work up to home Resident Physician Supervision Note: I interviewed and examined the patient. Discussed with Dr. Art Burciaga and agree with findings and plan as documented in the note. Any exceptions or clarifications are listed here: except what is noted below. In regards to his anemia, given his clinical presentation. Patient is extremely pale and becomes orthostatic when he stands (dizzy). Patient is likely hemoconcentrated and the HB is likely an over estimation. Patient will receive PRBC transfusion today and will recheck h an h after. WILL TRANSFUSE 1 UNIT Source is likely lower Gi bleed. Documented By: Constantine Quinonez Resuscitation Status VTE Prophylaxis Will order VTE Prophylaxis: Yes
--- NOTE | 2018-01-18 20:52 | DIAGNOSTIC IMAGING REPORT ---
BILIARY ULTRASOUND CLINICAL HISTORY: Right upper quadrant abdominal pain COMPARISON STUDY: April 2017 FINDINGS: The pancreas was suboptimally visualized. There is heterogeneous hepatic echotexture with a slightly nodular serosal surface. Underlying cirrhosis is suspected. The gallbladder contains sludge and calculi. There is no significant gallbladder wall thickening. There is a negative sonographic Pope sign. The common bile duct measures 3 mm. There is no right-sided hydronephrosis. There is a small amount of ascites present. IMPRESSION: 1. Cirrhotic appearance of the liver. 2. Cholelithiasis. No gallbladder wall thickening. No ductal dilatation. 3. Low volume ascites 4. Nondiagnostic evaluation the pancreas Electronically signed by: Nik Campos M.D. 01/18/2018 8:50 PM Dictated Date/Time: 01/18/2018 8:49 PM
[2018-01-18] MEDS ORDERED: INSULIN ASPART 100 UNITS/ML 3 ML PEN SC SCH (21:00)
[2018-01-18] MEDS ORDERED: PHARMACY GLYCEMIC MGMT CONSULT PRN (21:56)
[2018-01-18] MEDS ORDERED: PATIENT'S HEIGHT AND/OR WEIGHT NEEDED SCH (22:00)
[2018-01-18] MEDS: ATORVASTATIN 20 MG TAB PO SCH (22:59)
[2018-01-18] MEDS: OMEGA-3 (PURIFIED FISH OIL) 1 GM CAP PO SCH (23:00)
[2018-01-18] MEDS: NADOLOL 40 MG TAB PO SCH (23:00)
[2018-01-18] MEDS: RIFAXIMIN TAB 550 MG TAB PO SCH (23:01)
[2018-01-18] MEDS: PANTOprazole SOD 40 MG TAB PO SCH (23:01)
[2018-01-18] MEDS: SERTRALINE HCL 50 MG TAB PO SCH (23:02)
[2018-01-18] MEDS: TRICOR~ORDER AWAITING ACTION SCH (23:03)
[2018-01-19] VITALS (8 sets, daily range): BP systolic 106–140; BP diastolic 60–75; PULSE 63–81; TEMP 36.4–36.8; O2SAT 97–98; Ht 177.8 cm; Wt 108.5 kg
[2018-01-19] MEDS ORDERED: PHARMACY GLYCEMIC MGMT CONSULT PRN
[2018-01-19] MEDS ORDERED: INSULIN HUMAN REGULAR IV BOLUS 4 UNIT in SYRINGE 0 ML IV SCH
[2018-01-19] MEDS: INSULIN REGULAR 250 UNITS in SODIUM CHLORIDE 0.9% 250ML 250 ML IV SCH (00:23)
[2018-01-19 01:37] LABS: HEMATOCRIT 32.7 % (42-52); HEMOGLOBIN 9.8 g/dL (14.0-18.0)
[2018-01-19 06:28] LABS: HEMATOCRIT 30.2 % (42-52); HEMOGLOBIN 9.2 g/dL (14.0-18.0); MEAN CELL VOLUME 74.6 fL (80-100); MEAN CORPUSCULAR HEMOGLOBIN 22.7 pg (25-34); MEAN CORPUSCULAR HGB CONC 30.5 g/dl (32-36); MEAN PLATELET VOLUME 10.5 fL (7.4-10.4); PLATELET COUNT 233 K/uL (130-400); RED CELL DISTRIBUTION WIDTH CV 16.7 % (11.5-14.5); RED CELL DISTRIBUTION WIDTH SD 45.7 fL (36.4-46.3); WHITE BLOOD COUNT 6.91 K/uL (4.8-10.8)
[2018-01-19 07:06] LABS: ALBUMIN 2.9 gm/dl (3.4-5.0); CALCIUM 8.7 mg/dl (8.5-10.1); CREATININE 2.14 mg/dl (0.60-1.40); POTASSIUM 4.6 mmol/L (3.5-5.1); TOTAL PROTEIN 6.8 gm/dl (6.4-8.2)
[2018-01-19] MEDS: TRICOR~ORDER AWAITING ACTION SCH ×2 (08:00→16:00)
[2018-01-19] MEDS: RIFAXIMIN TAB 550 MG TAB PO SCH ×2 (08:14→20:41)
[2018-01-19] MEDS: GABAPENTIN 300 MG CAP PO SCH (08:14)
[2018-01-19] MEDS: CHOLECALCIFEROL 1000 INTER.UNIT TAB PO SCH (08:14)
[2018-01-19] MEDS: SPIRONOLACTONE 100 MG TAB PO SCH (08:14)
[2018-01-19] MEDS: MULTIVITAMIN TAB PO SCH (08:14)
[2018-01-19] MEDS: OMEGA-3 (PURIFIED FISH OIL) 1 GM CAP PO SCH ×2 (08:14→20:39)
[2018-01-19] MEDS: PANTOprazole SOD 40 MG TAB PO SCH (08:14)
[2018-01-19] MEDS: NADOLOL 40 MG TAB PO SCH ×2 (08:15→20:42)
[2018-01-19] MEDS: INSULIN ASPART 100 UNITS/ML 3 ML PEN SC SCH ×4 (08:17→20:43)
--- NOTE | 2018-01-19 08:34 | Clinical Documentation Query ---
CLINICAL DOCUMENTATION QUERY Dr. VASQUES, In your clinical opinion is this patient being managed for: ( x ) Chronic kidney disease, stage 3-4 ( ) Not Agree ( ) Other explanation of clinical findings (No explanation is considered a No Response) ( ) Unable to determine ( ) Need to Discuss (Phone CDS or qliq) (No discussion is considered a No Response) The medical record reflects the following clinical findings, treatment, and risk factors. Clinical Indicators: 72 yo male presenting with GI bleed and YUSRA. Noted in H/P to have CKD. Review of historical GFR showed range of 29-32.6. Treatment: monitor PRP's, treat comorbid conditions, treat episodes of YUSRA Risk Factors: age, A fib, cirrhosis, DM, HTN, Please clarify and document your clinical opinion in the progress notes and discharge summary. Terms such as "probable", "suspected", "likely", "questionable", "possible", or "still to be ruled out" are acceptable. IF IN AGREEMENT, YOU MUST DOCUMENT ABOVE DIAGNOSTIC STATEMENT IN DAILY PROGRESS NOTES AND DISCHARGE SUMMARY. This document is not part of the patient's record. Thank You, Kasey Riggs, DELLA [phone]
[2018-01-19] MEDS ORDERED: FUROSEMIDE 20 MG TAB PO SCH (09:00)
[2018-01-19] MEDS ORDERED: SODIUM CHLORIDE 0.9% 500ML 500 ML IV SCH (09:30)
[2018-01-19] MEDS ORDERED: SODIUM CHLORIDE 0.9% 1000ML 1,000 ML IV ONE (11:00)
--- NOTE | 2018-01-19 11:14 | Pharmacy Progress Note ---
Pharmacy Glycemic Short Note 2 Date of Service Jan 19, 2018. OUTPATIENT ANTIDIABETIC REGIMEN: * Novolin 70/30 150 units SQ BID * A1c = 12% 01/19/18 ASSESSMENT: * Poorly controlled type 2 diabetic admitted last evening for Lower GIB, anemia , YUSRA * Severe hyperglycemia noted on initial labs, no ketoacidosis noted and calculated effective serum osmo less than 300 * Patient's outpt regimen indicates high level of insulin resistance or possible non-compliance. Of note, when patient was hospitalized in 2015 the reported out-pt dose was 240+ units per day however the patient required much lower dose - albeit the patient was NPO much of that visit. * BSGs remain in the 400s at this time with drip running at 6.7 units/hr; IV hydration continues w/ NS @140cc/hr * Pt is ordered a diet and did consume breakfast this AM. Carbs are being covered with SQ Novolog. Na+ is climbing appropriately as Glu falling. * Starting some basal insulin at this time will help with transition of the drip sooner rather than later PLAN FOR INPATIENT GLYCEMIC CONTROL: * Continue IV insulin drip at this time secondary to severe hyperglycemia. Would not transition off drip until BSGs less than 200. * Basal insulin * Lantus 30 units SQ BID initially based upon prior admit data and concerns for non-compliance w/ outpt regimen * Nutritional / Prandial insulin per carb ratio of 1 unit per 5 grams CHO consumed with meals while on insulin drip PLAN FOR DISCHARGE: * will defer until further data available to make an informed decision
[2018-01-19] MEDS ORDERED: PANTOprazole INJ 80 MG in DEXTROSE 5% 100ML IV ONE (11:15)
--- NOTE | 2018-01-19 11:29 | Family Medicine Progress Note ---
Progress Note Date of Service Jan 19, 2018. Subjective Per nursing patient had confusion this morning, saying he was ready to go home. Later when I examined him he was calm in bed, but not oriented. Did not endorse any complaints except for 2 wounds on both his feet. Endorsed appetite. Later in the a.m., nurse paged and reported bright red blood in the toilet after patient had a BM ROS See HPI for pertinent positives and negatives. Otherwise denies new headache, vision change, chest pain, dyspnea, abdominal pain, dysuria, or numbness tingling in extremities. Medications Current Inpatient Medications Medications (Trade) Dose Ordered Sig/Jeff Route Start Time Stop Time Status Last Admin Dose Admin Acetaminophen (Tylenol Tab) 650 mg Q4H PRN PO 01/18/18 20:15 02/17/18 20:14 Al Hydrox/Mg Hydrox/Simethicone (Maalox Max Susp) 15 ml Q4H PRN PO 01/18/18 20:15 02/17/18 20:14 Magnesium Hydroxide (Milk Of Magnesia Susp) 30 ml Q12H PRN PO 01/18/18 20:15 02/17/18 20:14 Ondansetron HCl (Zofran Inj) 4 mg Q6H PRN IV 01/18/18 20:15 02/17/18 20:14 Polyethylene (Miralax Powder Packet) 17 gm DAILY PRN PO 01/18/18 20:15 02/17/18 20:14 Glucose (Glucose 40% Gel) 15-30 GRAMS 15 GRAMS... UD PRN PO 01/18/18 20:15 02/17/18 20:14 Glucose (Glucose Chew Tab) 4-8 Tablets 4 Tabl... UD PRN PO 01/18/18 20:15 02/17/18 20:14 Dextrose (Dextrose 50% 50ML Syringe) 25-50ML 25ML FOR ... UD PRN IV 01/18/18 20:15 02/17/18 20:14 Glucagon (Glucagon Inj) 1 mg UD PRN SQ 01/18/18 20:15 02/17/18 20:14 Carbohydrates (Carbohydrates For Hypoglycemia) 15-30 GRAMS 15 grams if BSG 54-69... UD PRN PO 01/18/18 20:15 02/17/18 20:14 Atorvastatin Calcium (Lipitor Tab) 40 mg HS PO 01/18/18 21:00 02/17/18 20:59 01/18/18 22:59 40 MG Cholecalciferol (Vitamin D Tab) 1,000 inter.unit DAILY PO 01/19/18 09:00 02/18/18 08:59 01/19/18 08:14 1,000 INTER.UNIT Fish Oil ([place]-3 (Purified Fish Oil) Cap) 1 gm BID PO 01/18/18 21:00 02/17/18 20:59 01/19/18 08:14 1 GM Furosemide (Lasix Tab) 20 mg DAILY PO 01/19/18 09:00 02/18/18 08:59 Future Hold 01/19/18 08:15 20 MG Gabapentin (Neurontin Cap) 1,200 mg DAILY PO 01/19/18 09:00 02/18/18 08:59 01/19/18 08:14 1,200 MG Acetaminophen/ Hydrocodone Bitart ([place] 5/325 Tab) 1 tab Q8H PRN PO 01/18/18 20:15 02/01/18 20:14 Multivitamins (Multivitamin Tab) 1 tab DAILY PO 01/19/18 09:00 02/18/18 08:59 01/19/18 08:14 1 TAB Nadolol (Corgard Tab) 20 mg BID PO 01/18/18 21:00 02/17/18 20:59 01/19/18 08:15 20 MG Rifaximin (Xifaxan Tab) 550 mg BID PO 01/18/18 21:00 02/17/18 20:59 01/19/18 08:14 550 MG Sertraline HCl (Zoloft Tab) 25 mg HS PO 01/18/18 21:00 02/17/18 20:59 01/18/18 23:02 25 MG Spironolactone (Aldactone Tab) 50 mg DAILY PO 01/19/18 09:00 02/18/18 08:59 01/19/18 08:14 50 MG Miscellaneous Information (Order Awaiting Action) 1 ea QS N/A 01/19/18 00:00 02/18/18 00:00 Miscellaneous Information (Consult Glycemic Management Pharmacy) 1 ea DAILY PRN N/A 01/18/18 21:56 02/17/18 21:55 Insulin Aspart (novoLOG ASPART) SLIDING SCALE PCHS PA 01/19/18 08:00 02/18/18 07:59 01/19/18 17:33 8 UNITS Insulin Human Regular 250 units/ Sodium Chloride 252.5 ml @ 0 mls/hr Q24H IV 01/19/18 00:00 02/18/18 00:00 01/19/18 00:23 3.9 MLS/HR Lorazepam (Ativan Inj) 0.5 mg Q4H PRN IV 01/19/18 09:30 02/18/18 09:29 Pantoprazole Sodium 40 mg/ Dextrose 100 ml @ 20 mls/hr Q5H IV 01/19/18 11:30 02/18/18 11:29 01/19/18 17:30 20 MLS/HR Insulin Glargine (Lantus Solostar Pen) 30 units BID SC 01/19/18 21:00 02/18/18 20:59 Potassium Chloride/Sodium Chloride 1,000 ml @ 140 mls/hr Q7H9M IV 01/19/18 12:00 02/18/18 11:59 01/19/18 12:55 140 MLS/HR Objective Vital Signs Date Time Temp Pulse Resp B/P (MAP) Pulse Ox O2 Delivery O2 Flow Rate FiO2 01/19/18 15:05 36.4 65 18 112/66 (81) 97 Nasal Cannula 01/19/18 12:31 36.5 81 18 140/75 (96) 98 Room Air 01/19/18 08:00 98 Room Air 01/19/18 07:13 36.6 67 20 109/68 (82) 97 Room Air 01/19/18 04:18 36.5 69 16 109/71 (84) 97 Room Air 01/18/18 23:45 36.8 65 18 105/75 98 01/18/18 23:24 36.7 72 16 116/70 (85) 96 Room Air 01/18/18 22:45 36.8 72 18 118/85 98 01/18/18 22:15 36.7 74 16 105/70 99 01/18/18 22:05 36.5 72 20 130/68 96 Room Air 01/18/18 22:00 36.8 72 18 110/68 99 01/18/18 21:45 36.8 68 18 130/68 99 01/18/18 21:31 70 20 112/75 97 01/18/18 21:27 64 18 112/70 97 01/18/18 21:27 36.7 01/18/18 21:08 36.7 70 20 115/68 95 01/18/18 20:00 98 Room Air 01/18/18 19:45 76 18 131/77 94 Room Air Physical Exam Notes: GENERAL: Awake, alert to self only, pale-appearing, in no distress HENT: Normocephalic, atraumatic. EYES: Normal conjunctiva. Sclera non-icteric. NECK: Supple. Full range of motion. no JVD RESPIRATORY: Clear to auscultation. CARDIAC: Regular rate, normal rhythm. Extremities warm and well perfused. Pulses equal. ABDOMEN: Soft, non-distended. No tenderness to palpation. No rebound or guarding. No masses. LOWER EXTREMITIES: Calves are equal size bilaterally and non-tender. No edema. NEURO: No motor deficits noted. SKIN: Wound on medial left foot covered with Band-Aid, and wound on right first digit of foot. Neither is open or draining, both have scabs. Numerous hyperpigmented macules on anterior shins bilaterally. Laboratory Results 01/19/18 14:27 01/19/18 14:27 Test 01/18/18 22:45 01/19/18 05:52 01/19/18 09:50 01/19/18 14:27 Hepatitis C Antibody NEG (NEG) Estimated Average Glucose 298 mg/dl Hemoglobin A1c 12.0 % (4.5-5.6) Total Bilirubin 0.5 mg/dl (0.2-1) Aspartate Amino Transf (AST/SGOT) 37 U/L (15-37) Alanine Aminotransferase (ALT/SGPT) 26 U/L (12-78) Alkaline Phosphatase 52 U/L (45-117) Total Protein 6.8 gm/dl (6.4-8.2) Albumin 2.9 gm/dl (3.4-5.0) Globulin 3.9 gm/dl (2.5-4.0) Albumin/Globulin Ratio 0.7 (0.9-2) Ammonia 46.1 umol/L (11-32) Red Blood Count 4.13 M/uL (4.7-6.1) Mean Corpuscular Volume 74.6 fL (80-100) Mean Corpuscular Hemoglobin 22.5 pg (25-34) Mean Corpuscular Hemoglobin Concent 30.2 g/dl (32-36) RDW Standard Deviation 46.0 fL (36.4-46.3) RDW Coefficient of Variation 16.8 % (11.5-14.5) Mean Platelet Volume 10.3 fL (7.4-10.4) Anion Gap 7.0 mmol/L (3-11) Est Creatinine Clear Calc Drug Dose 38.8 ml/min Estimated GFR () 36.2 Estimated GFR (Non- 31.2 BUN/Creatinine Ratio 16.1 (10-20) Calcium Level 8.8 mg/dl (8.5-10.1) Beta-Hydroxybutyric Acid 0.83 mg/dL (0.2-2.81) Test 01/19/18 17:08 Bedside Glucose 254 mg/dl (70-99) Assessment and Plan 72y/oM with presented with worsening weakness, dizziness and pallor x 1 week likely in the setting of lower GI bleed (diverticular vs. hemorrhoidal). Found to have Hgb of 8.9. Also found to have elevated BSG of 670 with normal Bhydroxybutyric acid and pseudohyponatremia of 124. K elevated to 5.3 and Cr to 2.7 likely from acute YUSRA in the setting of CKD. PMhx of HLD, HTN, Afib (on xarelto), splenic infarct in 2016, poorly controlled DM2 (insulin dependent), compensated non-alcoholic cirrhosis with esophageal varices and external hemorrhoids, erosive gastritis, and depression Hyperosmolar hyperglycemic nonketotic syndrome in the setting of poorly controlled DM2 (insulin dependent) -Glycemic consult ongoing, per recommendations will not transition off drip until blood sugars less than 200. -Per recommendations agree with Lantus 30 units s.q. twice daily -Half liter bolus added this a.m., with maintenance fluids running at 140 mL's per hour today. -Patient's vitals remained stable, 98 on room air Lower GI bleed (BRB per rectum) - possibly 2/2 hemorrhoids/varices -Hemoglobin remains stable, status post 1 transfusion - Hold aspirin and xarelto - GI consulted: Dr. Fernando, awaiting recommendation - Clear diet - Follow CBC q12 Compensated Cirrhosis (no hx of alcohol use); esophageal varices; hemorrhoids - AST 41 - Ordered Abdominal Ultrasound (given initial concern for RUQ TTP) -negative for gallbladder disease - Continue nadolol 20mg BID - Continue Rifaximin 550mg BID - Continue Spironolactone 50mg daily YUSRA (likely in the setting of CKD 3-4) - Continue hydration - Monitor BMP HTN/HLD/AFib - Continue home nadolol 20mg BID - Continue home fish oil, fenofibrate and atorvastatin - Hold aspirin and Xarelto Depression - Continue Sertraline 25mg HS FEN/GI -IVF NSS @144 ml/hr DVT prop: SCD/TEDs Code: Full Dispo: Tele. Normalize sugars, await GI recommendations Resident Physician Supervision Note: I interviewed and examined the patient. Discussed with Dr. Rosenthal and agree with findings and plan as documented in the note. Any exceptions or clarifications are listed here: None Documented By: Daniel Marquez feeling better than before did have another bloody bm weak vitals noted nad fatigued appearing no pallor or icterus. no focal neuro deficits weakness - multifactorial - but appearing hyperglycemic dehydration >>> GI bleeding with elements of both uncontrolled DM2 w hyperglycemic dehydration and ARF -fluids, insulin, follow closely GI bleeding w acute blood loss anemia requiring transfusion -hemodynamically stable -follow Hgb -hold blood thinners -w liver disease has risks for serious and catastrophic bleeding - hence GI consult, but clinical picture suggests less ominous source otherwise as above Continued [facility] stay due to: multiple IV medications needed Resident Tracking Resident Involvement: Resident Care Provided Care Provided: Adult Hospital Medicine
[2018-01-19] MEDS ORDERED: INSULIN GLARGINE SOLOSTAR 100 UNITS/ML 3 ML PEN SC ONE (11:30)
[2018-01-19] MEDS: PANTOprazole INJ 40 MG in DEXTROSE 5% 100ML IV SCH ×3 (12:10→20:56)
[2018-01-19] MEDS: NSS + 20MEQ KCL 1000ML 1,000 ML IV SCH ×2 (12:55→19:57)
[2018-01-19 14:39] LABS: HEMATOCRIT 30.8 % (42-52); HEMOGLOBIN 9.3 g/dL (14.0-18.0); MEAN CELL VOLUME 74.6 fL (80-100); MEAN CORPUSCULAR HEMOGLOBIN 22.5 pg (25-34); MEAN CORPUSCULAR HGB CONC 30.2 g/dl (32-36); MEAN PLATELET VOLUME 10.3 fL (7.4-10.4); PLATELET COUNT 236 K/uL (130-400); RED CELL DISTRIBUTION WIDTH CV 16.8 % (11.5-14.5); WHITE BLOOD COUNT 7.95 K/uL (4.8-10.8)
[2018-01-19 15:09] LABS: CALCIUM 8.8 mg/dl (8.5-10.1); CREATININE 2.06 mg/dl (0.60-1.40); POTASSIUM 4.2 mmol/L (3.5-5.1)
[2018-01-19] MEDS: SERTRALINE HCL 50 MG TAB PO SCH (20:42)
[2018-01-19] MEDS: ATORVASTATIN 20 MG TAB PO SCH (20:43)
--- NOTE | 2018-01-19 20:49 | GASTROINTESTINAL CONSULTATION ---
DATE OF CONSULTATION: 01/19/2018 CHIEF COMPLAINT: Rectal bleeding, history of cirrhosis, esophageal varices, poorly controlled diabetes. HISTORY OF PRESENT ILLNESS: Mr. Ceron is a 72-year-old white male with a history that includes poorly controlled type 2 diabetes, nonalcoholic cirrhosis, and presumably fatty liver with evidence of portal hypertension with esophageal varices. The patient also has a history of external hemorrhoids, gastritis, depressive illness. The patient has been developing an anemia over the past few weeks and over time became quite fatigued with an unsteady gait and dizziness upon standing. There are also reports of bright red blood in the toilet water. The patient has also had level of increased fatigue lately with a decreased appetite. In the Emergency Room, the patient was found to have marked elevated blood sugar at 670, hemoglobin 8.9, hyperkalemia. PAST MEDICAL AND SURGICAL HISTORY: Includes anemia, atrial fibrillation, cholecystitis, cirrhosis, diabetes, gastritis, hyperkalemia, hyperglycemia, and nausea. The patient underwent EGD in 03/[address] King along with a flexible sigmoidoscopy on the same date. Hemorrhoids were noted with sigmoidoscopy advancement to the transverse colon. No other mucosal abnormalities were appreciated. The upper endoscopy revealed grade 3 esophageal varices that were nonbleeding. FAMILY HISTORY: There is no pertinent family history. SOCIAL HISTORY: The patient smoked in the past. Does not use alcoholic beverages. He is retired and lives with his family. ALLERGIES: He has no known drug allergies. CURRENT HOME MEDICATIONS: Include aspirin, atorvastatin, vitamin D, Tricor, fish oil, furosemide, Neurontin, insulin, multivitamins, nadolol, pantoprazole, rifaximin, Xarelto, sertraline, and spironolactone. REVIEW OF SYSTEMS: Otherwise noncontributory based on 13-point exam except for mentioned above. PHYSICAL EXAMINATION: VITAL SIGNS: Currently include afebrile at 36.4, blood pressure 112/66, respirations 18, heart rate 65, and 97% on room air. GENERAL: The patient is accompanied by his family. He is awake, alert, and oriented x3. There is mild asterixis noted. HEENT: The sclerae anicteric, conjunctivae moist. Oral mucosa moist. HEART: Normal S1, S2. LUNGS: Clear to auscultation without rales, rhonchi or wheezes. ABDOMEN: Soft, protuberant without rebound or guarding. There is no focal tenderness. I do not appreciate abdominal bruits or masses. I do not appreciate hepatosplenomegaly. There is no evidence of caput. EXTREMITIES: With trace to +1 pitting edema bilaterally. RECTAL: Deferred at this time. LABORATORY STUDIES: The patient's hemoglobin currently 9.3 with a white count of 7.9, MCV 74, platelets are 236,000. Hepatitis C negative. Today's BUN and creatinine are 33 and 2.06. Blood sugars are improved over admission and currently in the mid to high 200 range. Beta hydroxybutyric acid is normal. His ammonia level was slightly elevated at 46.1 earlier today. Liver tests on admission showed total and direct bilirubin of 0.6, 0.3, AST 41, ALT 30, alkaline phosphatase 63. Iron studies show serum iron low at 20. TIBC 551, transferrin 410, percent sat 3. His ferritin is 18.8. Medications currently as an inpatient, insulin, potassium supplementation, pantoprazole, lorazepam, gabapentin, multivitamins, Aldactone, insulin, atorvastatin, nadolol, rifaximin, sertraline. IMPRESSION AND PLAN: The patient with reports of anemia for which he received 1 unit of packed red blood cells on January 18 at 9:00 p.m. His hemoglobin at the present time appears to be stable and there is no report based on nursing notes of melena or bright red blood described. There are 2 bowel movements reported for today and none for yesterday. His weight is down by 1.2 kg. Rectal bleeding could have several causes including hemorrhoidal bleeding, possible diverticular bleeding, portal colopathy or bleeding from dilated rectal veins. Upper sources, although possible seem less likely as there was no description of melena. His BUN and creatinine are reasonable. Nevertheless, he does have a history of esophageal varices. He is currently on the nadolol. I made the following recommendations. Will follow the patient over the weekend and observe for any trends in blood count and stool patterns. If there is suspicion for active bleeding, the patient may require upper endoscopy and/or colonoscopy depending on the presentation. If not, upper endoscopy and colonoscopy could be considered for Monday in an elective status. It is possible that he may need banding for these varices. It may be reasonable to consider octreotide drip to reduce portal pressure and bleeding risk. Ultrasound with portal Dopplers is also reasonable. The patient did have an ultrasound of gallbladder which revealed cholelithiasis and morphologic changes consistent with a cirrhotic liver with coarsened heterogeneous hepatic echotexture. However, the common bile duct is normal at 3 mm. There is only a low volume ascites appreciated. Dr. Mauro will be covering this weekend and would also continue PPI therapy, serial monitoring of hemoglobin, renal function. All questions answered for the patient and his family. As far as diet goes, the patient can have a full liquid diet tonight and a soft diet tomorrow without any vegetables, fruits or items with skins or seeds in order to plan for a bowel prep Monday night. He had not had a colonoscopy in the past according to the patient's and only the sigmoidoscopy last year and therefore a complete colon examination is warranted. All questions answered.
[2018-01-19] MEDS: INSULIN GLARGINE SOLOSTAR 100 UNITS/ML 3 ML PEN SC SCH (20:55)
[2018-01-20] MEDS: INSULIN REGULAR 250 UNITS in SODIUM CHLORIDE 0.9% 250ML 250 ML IV SCH ×2
[2018-01-20] MEDS: PANTOprazole INJ 40 MG in DEXTROSE 5% 100ML IV SCH ×4 (02:24→20:17)
[2018-01-20] MEDS: NSS + 20MEQ KCL 1000ML 1,000 ML IV SCH ×3 (02:24→17:47)
[2018-01-20 03:50] VITALS: BP 96/64; PULSE 70; TEMP 36.7; O2SAT 97
[2018-01-20] MEDS ORDERED: INSULIN ASPART 100 UNITS/ML 3 ML PEN SC SCH (04:00)
[2018-01-20 06:58] VITALS: BP 118/69; PULSE 74; TEMP 36.6; O2SAT 99
[2018-01-20] MEDS: CHOLECALCIFEROL 1000 INTER.UNIT TAB PO SCH (07:36)
[2018-01-20] MEDS: GABAPENTIN 300 MG CAP PO SCH (07:36)
[2018-01-20] MEDS: MULTIVITAMIN TAB PO SCH (07:36)
[2018-01-20 08:00] VITALS: O2SAT 99
[2018-01-20] MEDS: TRICOR~ORDER AWAITING ACTION SCH ×2 (08:00)
[2018-01-20 08:11] LABS: HEMATOCRIT 31.7 % (42-52); HEMOGLOBIN 9.1 g/dL (14.0-18.0); MEAN CORPUSCULAR HEMOGLOBIN 21.8 pg (25-34); MEAN CORPUSCULAR HGB CONC 28.7 g/dl (32-36); MEAN PLATELET VOLUME 10.9 fL (7.4-10.4); PLATELET COUNT 274 K/uL (130-400); RED CELL DISTRIBUTION WIDTH CV 16.9 % (11.5-14.5); RED CELL DISTRIBUTION WIDTH SD 46.1 fL (36.4-46.3); WHITE BLOOD COUNT 9.23 K/uL (4.8-10.8)
[2018-01-20 08:30] LABS: CALCIUM 8.1 mg/dl (8.5-10.1); CREATININE 1.77 mg/dl (0.60-1.40); POTASSIUM 4.6 mmol/L (3.5-5.1)
[2018-01-20] MEDS: INSULIN ASPART 100 UNITS/ML 3 ML PEN SC SCH ×4 (08:51→20:23)
[2018-01-20] MEDS: INSULIN GLARGINE SOLOSTAR 100 UNITS/ML 3 ML PEN SC SCH ×2 (08:52→20:24)
[2018-01-20] MEDS: LORAZEPAM 2 MG/ML 1 ML VIAL IV PRN ×2 (08:52→21:39)
[2018-01-20 11:30] VITALS: BP 92/56; PULSE 62; TEMP 36.6; O2SAT 96
--- NOTE | 2018-01-20 11:53 | Gastroenterology Progress Note ---
Progress Note Date of Service: Jan 20, 2018 Subjective Pt evaluation today including: conversation w/ patient, conversation w/ family ( in room), physical exam, chart review, lab review, review of studies, review of inpatient medication list cc f/u GI Bleeding HPI History from chart and nursing staff. Pt restless this am and given some sedation at 0830 and not arousable at present. Per nursing brown stool with saleem red blood witnessed yesterday. Yellow stool this am with no saleem blood in stool but small amount of red stool with wiping. Review of Systems ROS unobtainable from patient --not arousable. Medications Current Inpatient Medications Medications (Trade) Dose Ordered Sig/Jeff Route Start Time Stop Time Status Last Admin Dose Admin Acetaminophen (Tylenol Tab) 650 mg Q4H PRN PO 01/18/18 20:15 02/17/18 20:14 01/20/18 07:37 650 MG Al Hydrox/Mg Hydrox/Simethicone (Maalox Max Susp) 15 ml Q4H PRN PO 01/18/18 20:15 02/17/18 20:14 Magnesium Hydroxide (Milk Of Magnesia Susp) 30 ml Q12H PRN PO 01/18/18 20:15 02/17/18 20:14 Ondansetron HCl (Zofran Inj) 4 mg Q6H PRN IV 01/18/18 20:15 02/17/18 20:14 Polyethylene (Miralax Powder Packet) 17 gm DAILY PRN PO 01/18/18 20:15 02/17/18 20:14 Glucose (Glucose 40% Gel) 15-30 GRAMS 15 GRAMS... UD PRN PO 01/18/18 20:15 02/17/18 20:14 Glucose (Glucose Chew Tab) 4-8 Tablets 4 Tabl... UD PRN PO 01/18/18 20:15 02/17/18 20:14 Dextrose (Dextrose 50% 50ML Syringe) 25-50ML 25ML FOR ... UD PRN IV 01/18/18 20:15 02/17/18 20:14 Glucagon (Glucagon Inj) 1 mg UD PRN SQ 01/18/18 20:15 02/17/18 20:14 Carbohydrates (Carbohydrates For Hypoglycemia) 15-30 GRAMS 15 grams if BSG 54-69... UD PRN PO 01/18/18 20:15 02/17/18 20:14 Atorvastatin Calcium (Lipitor Tab) 40 mg HS PO 01/18/18 21:00 02/17/18 20:59 01/19/18 20:43 40 MG Cholecalciferol (Vitamin D Tab) 1,000 inter.unit DAILY PO 01/19/18 09:00 02/18/18 08:59 01/20/18 07:36 1,000 INTER.UNIT Fish Oil ([place]-3 (Purified Fish Oil) Cap) 1 gm BID PO 01/18/18 21:00 02/17/18 20:59 01/19/18 20:39 1 GM Furosemide (Lasix Tab) 20 mg DAILY PO 01/19/18 09:00 02/18/18 08:59 Future Hold 01/19/18 08:15 20 MG Gabapentin (Neurontin Cap) 1,200 mg DAILY PO 01/19/18 09:00 02/18/18 08:59 01/20/18 07:36 1,200 MG Acetaminophen/ Hydrocodone Bitart ([place] 5/325 Tab) 1 tab Q8H PRN PO 01/18/18 20:15 02/01/18 20:14 Multivitamins (Multivitamin Tab) 1 tab DAILY PO 01/19/18 09:00 02/18/18 08:59 01/20/18 07:36 1 TAB Nadolol (Corgard Tab) 20 mg BID PO 01/18/18 21:00 02/17/18 20:59 01/19/18 20:42 20 MG Rifaximin (Xifaxan Tab) 550 mg BID PO 01/18/18 21:00 02/17/18 20:59 01/19/18 20:41 550 MG Sertraline HCl (Zoloft Tab) 25 mg HS PO 01/18/18 21:00 02/17/18 20:59 01/19/18 20:42 25 MG Spironolactone (Aldactone Tab) 50 mg DAILY PO 01/19/18 09:00 02/18/18 08:59 01/19/18 08:14 50 MG Miscellaneous Information (Consult Glycemic Management Pharmacy) 1 ea DAILY PRN N/A 01/18/18 21:56 02/17/18 21:55 Lorazepam (Ativan Inj) 0.5 mg Q4H PRN IV 01/19/18 09:30 02/18/18 09:29 01/20/18 08:52 0.5 MG Pantoprazole Sodium 40 mg/ Dextrose 100 ml @ 20 mls/hr Q5H IV 01/19/18 11:30 02/18/18 11:29 01/20/18 08:40 20 MLS/HR Insulin Glargine (Lantus Solostar Pen) 30 units BID SC 01/19/18 21:00 02/18/18 20:59 01/20/18 08:52 30 UNITS Potassium Chloride/Sodium Chloride 1,000 ml @ 140 mls/hr Q7H9M IV 01/19/18 12:00 02/18/18 11:59 01/20/18 08:40 140 MLS/HR Insulin Aspart (novoLOG ASPART) SLIDING SCALE ACHS SC 01/20/18 07:00 02/19/18 06:59 01/20/18 08:51 2 UNITS Fenofibrate (Fenofibrate) 160 mg DAILY PO 01/20/18 09:00 02/19/18 08:59 Objective Vital Signs Date Time Temp Pulse Resp B/P (MAP) Pulse Ox O2 Delivery O2 Flow Rate FiO2 01/20/18 06:58 36.6 74 19 118/69 (85) 99 Room Air 01/20/18 03:50 36.7 70 16 96/64 (75) 97 Room Air 01/19/18 23:11 36.8 68 18 106/60 (75) 97 Room Air 01/19/18 19:30 97 Room Air 01/19/18 19:07 36.5 63 18 113/65 (81) 97 Room Air 01/19/18 16:00 Room Air 01/19/18 15:05 36.4 65 18 112/66 (81) 97 Room Air 01/19/18 12:31 36.5 81 18 140/75 (96) 98 Room Air Physical Exam General Appearance: WD/WN, no apparent distress Respiratory/Chest: lungs clear, no respiratory distress Cardiovascular: no murmur, + pertinent finding (minimal lower extremity edema) Abdomen: normal bowel sounds, non tender, soft Neurologic/Psych: + pertinent finding (not arousable) Skin: normal color, warm/dry Laboratory Results Last 24 Hours Test 01/19/18 12:09 01/19/18 14:07 7/27/18 14:27 01/19/18 15:05 Bedside Glucose 344 mg/dl 370 mg/dl 293 mg/dl White Blood Count 7.95 K/uL Red Blood Count 4.13 M/uL Hemoglobin 9.3 g/dL Hematocrit 30.8 % Mean Corpuscular Volume 74.6 fL Mean Corpuscular Hemoglobin 22.5 pg Mean Corpuscular Hemoglobin Concent 30.2 g/dl RDW Standard Deviation 46.0 fL RDW Coefficient of Variation 16.8 % Platelet Count 236 K/uL Mean Platelet Volume 10.3 fL Sodium Level 132 mmol/L Potassium Level 4.2 mmol/L Chloride Level 99 mmol/L Carbon Dioxide Level 26 mmol/L Anion Gap 7.0 mmol/L Blood Urea Nitrogen 33 mg/dl Creatinine 2.06 mg/dl Est Creatinine Clear Calc Drug Dose 38.8 ml/min Estimated GFR () 36.2 Estimated GFR (Non- 31.2 BUN/Creatinine Ratio 16.1 Random Glucose 314 mg/dl Calcium Level 8.8 mg/dl Beta-Hydroxybutyric Acid 0.83 mg/dL Test 01/19/18 16:02 01/19/18 17:08 01/19/18 18:20 01/19/18 18:57 Bedside Glucose 244 mg/dl 254 mg/dl 316 mg/dl 272 mg/dl Test 01/19/18 20:05 01/19/18 20:46 01/19/18 22:06 01/19/18 22:57 Bedside Glucose 217 mg/dl 331 mg/dl 302 mg/dl 283 mg/dl Test 01/20/18 00:03 01/20/18 00:34 01/20/18 01:03 01/20/18 04:01 Bedside Glucose 225 mg/dl 239 mg/dl 196 mg/dl 118 mg/dl Test 01/20/18 06:57 01/20/18 07:32 Bedside Glucose 156 mg/dl White Blood Count 9.23 K/uL Red Blood Count 4.17 M/uL Hemoglobin 9.1 g/dL Hematocrit 31.7 % Mean Corpuscular Volume 76.0 fL Mean Corpuscular Hemoglobin 21.8 pg Mean Corpuscular Hemoglobin Concent 28.7 g/dl RDW Standard Deviation 46.1 fL RDW Coefficient of Variation 16.9 % Platelet Count 274 K/uL Mean Platelet Volume 10.9 fL Sodium Level 135 mmol/L Potassium Level 4.6 mmol/L Chloride Level 104 mmol/L Carbon Dioxide Level 23 mmol/L Anion Gap 8.0 mmol/L Blood Urea Nitrogen 23 mg/dl Creatinine 1.77 mg/dl Est Creatinine Clear Calc Drug Dose 45.6 ml/min Estimated GFR () 43.5 Estimated GFR (Non- 37.5 BUN/Creatinine Ratio 12.9 Random Glucose 151 mg/dl Calcium Level 8.1 mg/dl Assessment and Plan GI bleeding--bright red blood likely lower given brown stool yesterday and yellow today. Hgb stable and slowed/stopped so recommend clear liquid diet tomorrow starting at breakfast and will order prep on rounds tomorrow for colonoscopy monday esophageal varices--recommend EGD monday also to check on status of varices and look for PUD since on ASA. Also he could have portal gastropathy as well which can contribute to slow bleeding. mental status changes--could be from sedation but with cirrhosis and rifaximan as admit med his ammonia could be high. Check Stat ammonia and follow that Fe def anemia from chronic Gi blood loss---stable at present--EGD and colo monday cirhosis--nothing acute to do
[2018-01-20 12:52] LABS: INR 1.4 (0.9-1.1)
--- NOTE | 2018-01-20 14:23 | Pharmacy Progress Note ---
Pharmacy Glycemic Short Note 2 Date of Service Jan 20, 2018. OUTPATIENT ANTIDIABETIC REGIMEN: * Novolin 70/30 150 units SQ BID * A1c = 12% 01/19/18 Test 01/19/18 14:27 01/19/18 15:05 01/19/18 16:02 01/19/18 17:08 Random Glucose 314 mg/dl (70-99) Bedside Glucose 293 mg/dl (70-99) 244 mg/dl (70-99) 254 mg/dl (70-99) Test 01/19/18 18:20 01/19/18 18:57 01/19/18 20:05 01/19/18 20:46 Bedside Glucose 316 mg/dl (70-99) 272 mg/dl (70-99) 217 mg/dl (70-99) 331 mg/dl (70-99) Test 01/19/18 22:06 01/19/18 22:57 01/20/18 00:03 01/20/18 00:34 Bedside Glucose 302 mg/dl (70-99) 283 mg/dl (70-99) 225 mg/dl (70-99) 239 mg/dl (70-99) Test 01/20/18 01:03 01/20/18 04:01 01/20/18 06:57 01/20/18 07:32 Bedside Glucose 196 mg/dl (70-99) 118 mg/dl (70-99) 156 mg/dl (70-99) Random Glucose 151 mg/dl (70-99) Test 01/20/18 11:06 Bedside Glucose 161 mg/dl (70-99) ASSESSMENT: * Poorly controlled type 2 diabetic admitted last evening for Lower GIB, anemia , YUSRA * Transitioned off of insulin drip to basal bolus last evening, blood sugars at goal, no changes needed at this time. PLAN FOR INPATIENT GLYCEMIC CONTROL: * Basal insulin * Lantus 30 units SQ BID * Bolus insulin * Goal range 140mg/dl - 180mg/dl (likely can tighten tomorrow to 120-150mg/dl) * Correction Factor: 20mg/dL/unit * Nutritional / Prandial insulin per carb ratio of 1 unit per 5 grams CHO consumed with meals while on insulin drip PLAN FOR DISCHARGE: * will defer until further data available to make an informed decision
[2018-01-20 15:00] VITALS: BP 116/60; PULSE 75; TEMP 36.7; O2SAT 97
[2018-01-20] MEDS: NADOLOL 40 MG TAB PO SCH ×2 (15:29→20:17)
[2018-01-20] MEDS: RIFAXIMIN TAB 550 MG TAB PO SCH ×2 (15:30→20:20)
[2018-01-20] MEDS: OMEGA-3 (PURIFIED FISH OIL) 1 GM CAP PO SCH ×2 (15:30→20:20)
[2018-01-20] MEDS: SPIRONOLACTONE 100 MG TAB PO SCH (15:30)
[2018-01-20] MEDS: FENOFIBRATE 160 MG TAB PO SCH (15:31)
--- NOTE | 2018-01-20 15:57 | Family Medicine Progress Note ---
Progress Note Date of Service Jan 20, 2018. Subjective Pt evaluation today including: conversation w/ patient, conversation w/ family , physical exam, chart review, lab review, review of inpatient medication list Pain: Chronic left foot pain reported PO Intake: Tolerating PO intake Voiding: no voiding problems Mr. Ceron reports he feels slightly better today than yesterday. He reports an improvement in his weakness and fatigue. He denies chest pain, abdominal pain, shortness of breath, n/v. He has been able to ambulate to the commode and back without problems. He did have some blood noted on his toilet paper after wiping , but did not have any blood in his loose BM this morning. He does report left sided foot pain which he states is chronic. He notes it is no worse than usual and he is able to walk on it without problems. Constitutional: No fever, No chills Respiratory: No shortness of breath Cardiovascular: No chest pain Abdomen: No pain, No nausea, No vomiting All Other Systems: Reviewed and Negative Medications Current Inpatient Medications Medications (Trade) Dose Ordered Sig/Jeff Route Start Time Stop Time Status Last Admin Dose Admin Acetaminophen (Tylenol Tab) 650 mg Q4H PRN PO 01/18/18 20:15 02/17/18 20:14 01/20/18 07:37 650 MG Al Hydrox/Mg Hydrox/Simethicone (Maalox Max Susp) 15 ml Q4H PRN PO 01/18/18 20:15 02/17/18 20:14 Magnesium Hydroxide (Milk Of Magnesia Susp) 30 ml Q12H PRN PO 01/18/18 20:15 02/17/18 20:14 Ondansetron HCl (Zofran Inj) 4 mg Q6H PRN IV 01/18/18 20:15 02/17/18 20:14 Polyethylene (Miralax Powder Packet) 17 gm DAILY PRN PO 01/18/18 20:15 02/17/18 20:14 Glucose (Glucose 40% Gel) 15-30 GRAMS 15 GRAMS... UD PRN PO 01/18/18 20:15 02/17/18 20:14 Glucose (Glucose Chew Tab) 4-8 Tablets 4 Tabl... UD PRN PO 01/18/18 20:15 02/17/18 20:14 Dextrose (Dextrose 50% 50ML Syringe) 25-50ML 25ML FOR ... UD PRN IV 01/18/18 20:15 02/17/18 20:14 Glucagon (Glucagon Inj) 1 mg UD PRN SQ 01/18/18 20:15 02/17/18 20:14 Carbohydrates (Carbohydrates For Hypoglycemia) 15-30 GRAMS 15 grams if BSG 54-69... UD PRN PO 01/18/18 20:15 02/17/18 20:14 Atorvastatin Calcium (Lipitor Tab) 40 mg HS PO 01/18/18 21:00 02/17/18 20:59 01/19/18 20:43 40 MG Cholecalciferol (Vitamin D Tab) 1,000 inter.unit DAILY PO 01/19/18 09:00 02/18/18 08:59 01/20/18 07:36 1,000 INTER.UNIT Fish Oil ([place]-3 (Purified Fish Oil) Cap) 1 gm BID PO 01/18/18 21:00 02/17/18 20:59 01/20/18 15:30 1 GM Furosemide (Lasix Tab) 20 mg DAILY PO 01/19/18 09:00 02/18/18 08:59 Future Hold 01/19/18 08:15 20 MG Gabapentin (Neurontin Cap) 1,200 mg DAILY PO 01/19/18 09:00 02/18/18 08:59 01/20/18 07:36 1,200 MG Acetaminophen/ Hydrocodone Bitart ([place] 5/325 Tab) 1 tab Q8H PRN PO 01/18/18 20:15 02/01/18 20:14 Multivitamins (Multivitamin Tab) 1 tab DAILY PO 01/19/18 09:00 02/18/18 08:59 01/20/18 07:36 1 TAB Nadolol (Corgard Tab) 20 mg BID PO 01/18/18 21:00 02/17/18 20:59 01/20/18 15:29 20 MG Rifaximin (Xifaxan Tab) 550 mg BID PO 01/18/18 21:00 02/17/18 20:59 01/20/18 15:30 550 MG Sertraline HCl (Zoloft Tab) 25 mg HS PO 01/18/18 21:00 02/17/18 20:59 01/19/18 20:42 25 MG Spironolactone (Aldactone Tab) 50 mg DAILY PO 01/19/18 09:00 02/18/18 08:59 01/20/18 15:30 50 MG Miscellaneous Information (Consult Glycemic Management Pharmacy) 1 ea DAILY PRN N/A 01/18/18 21:56 02/17/18 21:55 Lorazepam (Ativan Inj) 0.5 mg Q4H PRN IV 01/19/18 09:30 02/18/18 09:29 01/20/18 08:52 0.5 MG Pantoprazole Sodium 40 mg/ Dextrose 100 ml @ 20 mls/hr Q5H IV 01/19/18 11:30 02/18/18 11:29 01/20/18 14:24 20 MLS/HR Insulin Glargine (Lantus Solostar Pen) 30 units BID SC 01/19/18 21:00 02/18/18 20:59 01/20/18 08:52 30 UNITS Potassium Chloride/Sodium Chloride 1,000 ml @ 100 mls/hr Q10H IV 01/19/18 12:00 02/18/18 11:59 01/20/18 08:40 140 MLS/HR Insulin Aspart (novoLOG ASPART) SLIDING SCALE ACHS SC 01/20/18 07:00 02/19/18 06:59 01/20/18 08:51 2 UNITS Fenofibrate (Fenofibrate) 160 mg DAILY PO 01/20/18 09:00 02/19/18 08:59 01/20/18 15:31 160 MG Objective Vital Signs Date Time Temp Pulse Resp B/P (MAP) Pulse Ox O2 Delivery O2 Flow Rate FiO2 01/20/18 15:00 36.7 75 20 116/60 (78) 97 Room Air 01/20/18 11:30 36.6 62 14 92/56 (68) 96 Room Air 01/20/18 08:00 99 Room Air 01/20/18 06:58 36.6 74 19 118/69 (85) 99 Room Air 01/20/18 03:50 36.7 70 16 96/64 (75) 97 Room Air 01/19/18 23:11 36.8 68 18 106/60 (75) 97 Room Air 01/19/18 19:30 97 Room Air 01/19/18 19:07 36.5 63 18 113/65 (81) 97 Room Air 01/19/18 16:00 Room Air Physical Exam General Appearance: WD/WN, + pertinent finding (answered questions appropriately initially, then started talking about another random topic) Respiratory/Chest: lungs clear, normal breath sounds Cardiovascular: regular rate, rhythm, no edema Abdomen: non tender, soft Extremities: + pertinent finding (multiple healing scabs over left foot) Neurologic/Psychiatric: alert, + disoriented (oriented to person but not to place or time) Laboratory Results Last 24 Hours Test 01/19/18 16:02 01/19/18 17:08 01/19/18 18:20 01/19/18 18:57 Bedside Glucose 244 mg/dl 254 mg/dl 316 mg/dl 272 mg/dl Test 01/19/18 20:05 01/19/18 20:46 01/19/18 22:06 01/19/18 22:57 Bedside Glucose 217 mg/dl 331 mg/dl 302 mg/dl 283 mg/dl Test 01/20/18 00:03 01/20/18 00:34 01/20/18 01:03 01/20/18 04:01 Bedside Glucose 225 mg/dl 239 mg/dl 196 mg/dl 118 mg/dl Test 01/20/18 06:57 01/20/18 07:32 01/20/18 11:06 01/20/18 12:30 Bedside Glucose 156 mg/dl 161 mg/dl White Blood Count 9.23 K/uL Red Blood Count 4.17 M/uL Hemoglobin 9.1 g/dL Hematocrit 31.7 % Mean Corpuscular Volume 76.0 fL Mean Corpuscular Hemoglobin 21.8 pg Mean Corpuscular Hemoglobin Concent 28.7 g/dl RDW Standard Deviation 46.1 fL RDW Coefficient of Variation 16.9 % Platelet Count 274 K/uL Mean Platelet Volume 10.9 fL Sodium Level 135 mmol/L Potassium Level 4.6 mmol/L Chloride Level 104 mmol/L Carbon Dioxide Level 23 mmol/L Anion Gap 8.0 mmol/L Blood Urea Nitrogen 23 mg/dl Creatinine 1.77 mg/dl Est Creatinine Clear Calc Drug Dose 45.6 ml/min Estimated GFR () 43.5 Estimated GFR (Non- 37.5 BUN/Creatinine Ratio 12.9 Random Glucose 151 mg/dl Calcium Level 8.1 mg/dl Prothrombin Time 14.3 SECONDS Prothromb Time International Ratio 1.4 Ammonia 48.0 umol/L Assessment and Plan Mr. Ceron is a 72 year old male who presented with worsening weakness, dizziness and pallor x 1 week likely in the setting of lower GI bleed. Found to have Hgb of 8.9. Also found to have elevated BSG of 670 with normal Bhydroxybutyric acid and pseudohyponatremia of 124. K elevated to 5.3 and Cr to 2.7 likely from acute YUSRA in the setting of CKD. PMhx of HLD, HTN, Afib (on xarelto), splenic infarct in 2016, poorly controlled DM2 (insulin dependent), compensated non-alcoholic cirrhosis with esophageal varices and external hemorrhoids, erosive gastritis, and depression Hyperosmolar hyperglycemic nonketotic syndrome in the setting of poorly controlled DM2 (insulin dependent) - Glycemic consult ongoing. - insulin drip discontinued & pt remains on Lantus 30 units s.q. twice daily - glucose improved to 161 - received >4L of IVF - decrease IVF to maintenance (100 mls/hr) instead of maintenance and a half Lower GI bleed (BRB per rectum) - possibly 2/2 hemorrhoids/varices - Hemoglobin remains stable, status post 1 unit of prbcs transfusion - Hold aspirin and xarelto - GI consulted, thank you for recommendations -> pt will undergo endoscopy and colonoscopy on Monday. Soft diet today & clear liquid diet tomorrow -> ammonia level elevated at 48 - Hgb stable at 9.1, check q24h instead of q12h AMS - baseline hx of dementia, unable to tell how much of current AMS is dementia vs. 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 Discussed with Dr. Martínez and agree with findings and plan as documented in the note. Any exceptions or clarifications are listed here: None Documented By: Daniel Zayas more confused today. no meaningful HPI or ROS obtainable vitals noted nad breathing unlabored no pallor or icterus. no focal neuro deficits weakness - multifactorial - but appearing hyperglycemic dehydration >>> GI bleeding with elements of both uncontrolled DM2 w hyperglycemic dehydration and ARF -improved. can reduce fluid to maintenance, adjust insulin -renal failure improved GI bleeding w acute blood loss anemia requiring transfusion -hemodynamically stable -Hgb stable -holding blood thinners -w liver disease has risks for serious and catastrophic bleeding - hence GI consult, but clinical picture suggests less ominous source --- agree scopes next week delirium -multifactorial encephalopathy - dehydration/ARF, blood loss, hospital stay; doubt ammonia playing much of a role but continue to follow -appears superimposed on what sounds to be chronic dementia (?moderate) by ' s description -supportive care, extensive explanation to on nature/course/causative factors/etc of delirium otherwise as above Resident Tracking Resident Involvement: Resident Care Provided Care Provided: Adult Hospital Medicine
[2018-01-20] MEDS: HYDROCODONE/ACETAMIN 5/325MG TAB PO PRN (18:35)
[2018-01-20 19:15] VITALS: BP 123/64; PULSE 74; TEMP 36.4; O2SAT 97
[2018-01-20] MEDS: ATORVASTATIN 20 MG TAB PO SCH (20:18)
[2018-01-20] MEDS: SERTRALINE HCL 50 MG TAB PO SCH (20:19)
[2018-01-20] MEDS: MoRPHine SULFATE 4 MG/ML 1 ML CARP\\VIAL IV PRN (20:25)
[2018-01-21] VITALS (8 sets, daily range): BP systolic 93–134; BP diastolic 45–85; PULSE 69–75; TEMP 36.5–37.6; O2SAT 94–99
[2018-01-21] MEDS: NSS + 20MEQ KCL 1000ML 1,000 ML IV SCH (01:20)
[2018-01-21] MEDS: PANTOprazole INJ 40 MG in DEXTROSE 5% 100ML IV SCH ×6 (01:20→23:22)
[2018-01-21] MEDS: LORAZEPAM 2 MG/ML 1 ML VIAL IV PRN (02:19)
--- NOTE | 2018-01-21 07:06 | Family Medicine Progress Note ---
Progress Note Date of Service Jan 21, 2018. Subjective Pt evaluation today including: conversation w/ patient, physical exam, chart review, lab review, review of inpatient medication list Pain: No pain reported PO Intake: Tolerating clear liquid diet Voiding: no voiding problems Mr. Ceron reports he feels fine today. He denies being in any pain, and has no new complaints. He did have severe left foot pain last night and received 4mg of IV morphine for this. He also had a loose bowel movement last night, but there was no blood present. Constitutional: No fever, No chills Cardiovascular: No chest pain Abdomen: + diarrhea, No pain Medications Current Inpatient Medications Medications (Trade) Dose Ordered Sig/Jeff Route Start Time Stop Time Status Last Admin Dose Admin Acetaminophen (Tylenol Tab) 650 mg Q4H PRN PO 01/18/18 20:15 02/17/18 20:14 01/20/18 07:37 650 MG Al Hydrox/Mg Hydrox/Simethicone (Maalox Max Susp) 15 ml Q4H PRN PO 01/18/18 20:15 02/17/18 20:14 Magnesium Hydroxide (Milk Of Magnesia Susp) 30 ml Q12H PRN PO 01/18/18 20:15 02/17/18 20:14 Ondansetron HCl (Zofran Inj) 4 mg Q6H PRN IV 01/18/18 20:15 02/17/18 20:14 Polyethylene (Miralax Powder Packet) 17 gm DAILY PRN PO 01/18/18 20:15 02/17/18 20:14 Glucose (Glucose 40% Gel) 15-30 GRAMS 15 GRAMS... UD PRN PO 01/18/18 20:15 02/17/18 20:14 Glucose (Glucose Chew Tab) 4-8 Tablets 4 Tabl... UD PRN PO 01/18/18 20:15 02/17/18 20:14 Dextrose (Dextrose 50% 50ML Syringe) 25-50ML 25ML FOR ... UD PRN IV 01/18/18 20:15 02/17/18 20:14 Glucagon (Glucagon Inj) 1 mg UD PRN SQ 01/18/18 20:15 02/17/18 20:14 Carbohydrates (Carbohydrates For Hypoglycemia) 15-30 GRAMS 15 grams if BSG 54-69... UD PRN PO 01/18/18 20:15 8/25/18 20:14 Atorvastatin Calcium (Lipitor Tab) 40 mg HS PO 01/18/18 21:00 02/17/18 20:59 01/20/18 20:18 40 MG Cholecalciferol (Vitamin D Tab) 1,000 inter.unit DAILY PO 01/19/18 09:00 02/18/18 08:59 01/20/18 07:36 1,000 INTER.UNIT Fish Oil ([place]-3 (Purified Fish Oil) Cap) 1 gm BID PO 01/18/18 21:00 02/17/18 20:59 01/20/18 20:20 1 GM Furosemide (Lasix Tab) 20 mg DAILY PO 01/19/18 09:00 02/18/18 08:59 Future Hold 01/19/18 08:15 20 MG Acetaminophen/ Hydrocodone Bitart ([place] 5/325 Tab) 1 tab Q8H PRN PO 01/18/18 20:15 02/01/18 20:14 01/20/18 18:35 1 TAB Multivitamins (Multivitamin Tab) 1 tab DAILY PO 01/19/18 09:00 02/18/18 08:59 01/20/18 07:36 1 TAB Nadolol (Corgard Tab) 20 mg BID PO 01/18/18 21:00 02/17/18 20:59 01/20/18 20:17 20 MG Rifaximin (Xifaxan Tab) 550 mg BID PO 01/18/18 21:00 02/17/18 20:59 01/20/18 20:20 550 MG Sertraline HCl (Zoloft Tab) 25 mg HS PO 01/18/18 21:00 02/17/18 20:59 01/20/18 20:19 25 MG Spironolactone (Aldactone Tab) 50 mg DAILY PO 01/19/18 09:00 02/18/18 08:59 01/20/18 15:30 50 MG Miscellaneous Information (Consult Glycemic Management Pharmacy) 1 ea DAILY PRN N/A 01/18/18 21:56 02/17/18 21:55 Lorazepam (Ativan Inj) 0.5 mg Q4H PRN IV 01/19/18 09:30 02/18/18 09:29 01/21/18 02:19 0.5 MG Pantoprazole Sodium 40 mg/ Dextrose 100 ml @ 20 mls/hr Q5H IV 01/19/18 11:30 02/18/18 11:29 01/21/18 07:39 20 MLS/HR Potassium Chloride/Sodium Chloride 1,000 ml @ 100 mls/hr Q10H IV 01/19/18 12:00 02/18/18 11:59 01/21/18 01:20 100 MLS/HR Insulin Aspart (novoLOG ASPART) SLIDING SCALE ACHS SC 01/20/18 07:00 02/19/18 06:59 01/21/18 08:56 12 UNITS Fenofibrate (Fenofibrate) 160 mg DAILY PO 01/20/18 09:00 02/19/18 08:59 01/20/18 15:31 160 MG Morphine Sulfate (MoRPHine SULFATE INJ) 4 mg Q6H PRN IV 01/20/18 20:15 02/03/18 20:14 01/20/18 20:25 4 MG Gabapentin (Neurontin Tab) 1,200 mg Q24H PO 01/21/18 15:00 02/20/18 14:59 Gabapentin (Neurontin Tab) 600 mg BID PO 01/21/18 09:00 02/20/18 08:59 Insulin Glargine (Lantus Solostar Pen) 34 units BID SC 01/21/18 09:00 02/20/18 08:59 01/21/18 08:57 34 UNITS Objective Vital Signs Date Time Temp Pulse Resp B/P (MAP) Pulse Ox O2 Delivery O2 Flow Rate FiO2 01/21/18 08:52 75 98 01/21/18 08:00 36.7 75 19 95/45 (62) 98 Room Air 01/21/18 04:26 36.6 69 18 93/65 (74) 96 Room Air 01/21/18 01:01 Room Air 01/21/18 00:21 37.1 74 18 105/66 (79) 98 Room Air 01/20/18 19:15 36.4 74 18 123/64 (83) 97 Room Air 01/20/18 16:00 Room Air 01/20/18 15:00 36.7 75 20 116/60 (78) 97 Room Air 01/20/18 11:30 36.6 62 14 92/56 (68) 96 Room Air Physical Exam General Appearance: WD/WN, no apparent distress, + pertinent finding (Calmer this AM) Respiratory/Chest: lungs clear, normal breath sounds, no respiratory distress, no accessory muscle use Cardiovascular: regular rate, rhythm, no edema Abdomen: non tender, soft Neurologic/Psychiatric: alert, + disoriented Skin: + pertinent finding (left foot w/dry scab. Right foot w/ulcer.) Laboratory Results Last 24 Hours Test 01/20/18 11:06 01/20/18 12:30 01/20/18 16:10 01/20/18 20:15 Bedside Glucose 161 mg/dl 173 mg/dl 241 mg/dl Prothrombin Time 14.3 SECONDS Prothromb Time International Ratio 1.4 Ammonia 48.0 umol/L Test 01/21/18 07:37 01/21/18 07:38 Bedside Glucose 167 mg/dl White Blood Count 6.63 K/uL Red Blood Count 3.78 M/uL Hemoglobin 8.5 g/dL Hematocrit 29.3 % Mean Corpuscular Volume 77.5 fL Mean Corpuscular Hemoglobin 22.5 pg Mean Corpuscular Hemoglobin Concent 29.0 g/dl Platelet Count 217 K/uL Mean Platelet Volume 10.2 fL Neutrophils (%) (Auto) 65.7 % Lymphocytes (%) (Auto) 22.0 % Monocytes (%) (Auto) 9.8 % Eosinophils (%) (Auto) 1.7 % Basophils (%) (Auto) 0.2 % Neutrophils # (Auto) 4.36 K/uL Lymphocytes # (Auto) 1.46 K/uL Monocytes # (Auto) 0.65 K/uL Eosinophils # (Auto) 0.11 K/uL Basophils # (Auto) 0.01 K/uL RDW Standard Deviation 49.0 fL RDW Coefficient of Variation 17.4 % Immature Granulocyte % (Auto) 0.6 % Immature Granulocyte # (Auto) 0.04 K/uL Hypochromasia PRESENT Microcytosis PRESENT Ovalocytes 1+ Sodium Level 139 mmol/L Potassium Level 5.2 mmol/L Chloride Level 109 mmol/L Carbon Dioxide Level 24 mmol/L Anion Gap 6.0 mmol/L Blood Urea Nitrogen 21 mg/dl Creatinine 1.72 mg/dl Est Creatinine Clear Calc Drug Dose 47.3 ml/min Estimated GFR () 45.0 Estimated GFR (Non- 38.9 BUN/Creatinine Ratio 12.4 Random Glucose 168 mg/dl Calcium Level 7.7 mg/dl Total Bilirubin 0.5 mg/dl Aspartate Amino Transf (AST/SGOT) 51 U/L Alanine Aminotransferase (ALT/SGPT) 26 U/L Alkaline Phosphatase 48 U/L Ammonia 50.7 umol/L Total Protein 6.2 gm/dl Albumin 2.6 gm/dl Globulin 3.6 gm/dl Albumin/Globulin Ratio 0.7 Assessment and Plan Mr. Ceron is a 72 year old male who presented with worsening weakness, dizziness and pallor x 1 week likely in the setting of lower GI bleed. Found to have Hgb of 8.9. Also found to have elevated BSG of 670 with normal Bhydroxybutyric acid and pseudohyponatremia of 124. K elevated to 5.3 and Cr to 2.7 likely from acute YUSRA in the setting of CKD. PMhx of HLD, HTN, Afib (on xarelto), splenic infarct in 2015, poorly controlled DM2 (insulin dependent), compensated cirrhosis with esophageal varices and external hemorrhoids, erosive gastritis, and depression Hyperosmolar hyperglycemic nonketotic syndrome in the setting of poorly controlled DM2 (insulin dependent) - Glycemic consult ongoing -> increased Lantus to 34 units s.q. twice daily -> SSI coverage tightened -> glucose between 167-188 today - received >4L of IVF - continue maintenance IVF at 100 mls/hr -> fluids changed from NS + KCl to NS given elevated potassium of 5.2 - hold home 20mg Lasix Lower GI bleed (BRB per rectum) - possibly 2/2 hemorrhoids/varices - status post 1 unit of prbcs transfusion - hemoglobin decreased to 8.5 this AM -> ?lab variance vs. actual decrease. Recheck at 1400 - Hold aspirin and xarelto - GI consulted, thank you for recommendations -> pt will undergo endoscopy and colonoscopy tomorrow. Clear liquid diet today w/bowel prep AMS - baseline hx of dementia, unable to tell how much of current AMS is dementia vs. 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 Discussed with Dr. Martínez and agree with findings and plan as documented in the note. Any exceptions or clarifications are listed here: None Documented By: Daniel Zayas less confused, no acute complaints. updated pt and as best as possible vitals noted nad breathing unlabored no pallor or icterus. no focal neuro deficits weakness - multifactorial - but appearing hyperglycemic dehydration >>> GI bleeding with elements of both uncontrolled DM2 w hyperglycemic dehydration and ARF -improved. just maintenance fluids, insulin management GI bleeding w acute blood loss anemia requiring transfusion -hemodynamically stable -continue to trend Hgb -holding blood thinners -w liver disease has risks for serious and catastrophic bleeding - scopes tomorrow delirium -multifactorial encephalopathy - dehydration/ARF, blood loss, hospital stay; doubt ammonia playing much of a role but continue to follow -appears superimposed on what sounds to be chronic dementia (?moderate) by ' s description -supportive care, extensive explanation to again today on nature/course/ causative factors/etc of delirium -more calm today otherwise as above Resident Tracking Resident Involvement: Resident Care Provided Care Provided: Adult Hospital Medicine
[2018-01-21 07:50] LABS: HEMATOCRIT 29.3 % (42-52); HEMOGLOBIN 8.5 g/dL (14.0-18.0); MEAN CELL VOLUME 77.5 fL (80-100); MEAN CORPUSCULAR HEMOGLOBIN 22.5 pg (25-34); MEAN PLATELET VOLUME 10.2 fL (7.4-10.4); PLATELET COUNT 217 K/uL (130-400); RED CELL DISTRIBUTION WIDTH CV 17.4 % (11.5-14.5); WHITE BLOOD COUNT 6.63 K/uL (4.8-10.8)
[2018-01-21 08:17] LABS: BASO % 0.2 %; BASO ABS # 0.01 K/uL (0-0.2); EOS % 1.7 %; EOS ABS # 0.11 K/uL (0-0.5); IG# 0.04 K/uL (0.00-0.02); LYMPH ABS # 1.46 K/uL (1.2-3.4); MONO % 9.8 %; MONO ABS # 0.65 K/uL (0.11-0.59); NEUT % 65.7 %; NEUT ABS # 4.36 K/uL (1.4-6.5)
[2018-01-21 08:26] LABS: ALBUMIN 2.6 gm/dl (3.4-5.0); CALCIUM 7.7 mg/dl (8.5-10.1); CREATININE 1.72 mg/dl (0.60-1.40); POTASSIUM 5.2 mmol/L (3.5-5.1); TOTAL PROTEIN 6.2 gm/dl (6.4-8.2)
[2018-01-21] MEDS: INSULIN ASPART 100 UNITS/ML 3 ML PEN SC SCH ×4 (08:56→20:39)
[2018-01-21] MEDS ORDERED: INSULIN GLARGINE SOLOSTAR 100 UNITS/ML 3 ML PEN SC SCH ×2 (09:00→21:00)
[2018-01-21] MEDS: OMEGA-3 (PURIFIED FISH OIL) 1 GM CAP PO SCH ×2 (09:06→20:38)
[2018-01-21] MEDS: MULTIVITAMIN TAB PO SCH (09:06)
[2018-01-21] MEDS: CHOLECALCIFEROL 1000 INTER.UNIT TAB PO SCH (09:06)
[2018-01-21] MEDS: RIFAXIMIN TAB 550 MG TAB PO SCH ×2 (09:06→20:37)
[2018-01-21] MEDS: NADOLOL 40 MG TAB PO SCH ×2 (09:07→20:39)
[2018-01-21] MEDS: SPIRONOLACTONE 100 MG TAB PO SCH (09:07)
[2018-01-21] MEDS: GABAPENTIN 600 MG TAB PO SCH ×3 (09:07→21:02)
[2018-01-21] MEDS: FENOFIBRATE 160 MG TAB PO SCH (09:08)
[2018-01-21] MEDS: HYDROCODONE/ACETAMIN 5/325MG TAB PO PRN (10:46)
--- NOTE | 2018-01-21 11:01 | Pharmacy Progress Note ---
Pharmacy Glycemic Short Note 2 Date of Service Jan 21, 2018. OUTPATIENT ANTIDIABETIC REGIMEN: * Novolin 70/30 150 units SQ BID * A1c = 12% 01/19/18 Test 01/20/18 11:06 01/20/18 16:10 01/20/18 20:15 01/21/18 07:37 Bedside Glucose 161 mg/dl (70-99) 173 mg/dl (70-99) 241 mg/dl (70-99) 167 mg/dl (70-99) Test 01/21/18 07:38 Random Glucose 168 mg/dl (70-99) ASSESSMENT: * Poorly controlled type 2 diabetic admitted for Lower GIB, anemia, YUSRA * Transitioned off of insulin drip on 01/19, can now lower goal range * Blood sugars slightly elevated after meals and not quite coming back down to goal range overnight, increase Lantus and tighten CF and CR PLAN FOR INPATIENT GLYCEMIC CONTROL: * Basal insulin - INCREASE * Lantus 34 units SQ BID * Bolus insulin * TIGHTEN: Goal range 120mg/dl - 150mg/dl * TIGHTEN: Correction Factor: 15 mg/dL/unit * TIGHTEN: Nutritional / Prandial insulin per carb ratio of 1 unit per 4 grams CHO consumed with meals while on insulin drip PLAN FOR DISCHARGE: * Patient on Novolin 70/30 at home, at high doses of 150units SQ BID with A1c 12 % - follow up with out patient provider to optimize dosing and diet
[2018-01-21] MEDS: SODIUM CHLORIDE 0.9% 1000ML 1,000 ML IV SCH ×2 (12:30→22:06)
--- NOTE | 2018-01-21 15:15 | Gastroenterology Progress Note ---
Progress Note Date of Service: Jan 21, 2018 Subjective Pt evaluation today including: conversation w/ patient, physical exam, chart review, lab review, review of studies, review of inpatient medication list cc f/u GI bleeding HPI Reviewed EMR and spoke with patients and nursing. Pt with some delerium but more alert today. Only stool noted today was smear of yellow. No gross blood noted. Review of Systems ROS not obtained secondary to delerium Medications Current Inpatient Medications Medications (Trade) Dose Ordered Sig/Jeff Route Start Time Stop Time Status Last Admin Dose Admin Acetaminophen (Tylenol Tab) 650 mg Q4H PRN PO 01/18/18 20:15 02/17/18 20:14 01/20/18 07:37 650 MG Al Hydrox/Mg Hydrox/Simethicone (Maalox Max Susp) 15 ml Q4H PRN PO 01/18/18 20:15 02/17/18 20:14 Magnesium Hydroxide (Milk Of Magnesia Susp) 30 ml Q12H PRN PO 01/18/18 20:15 02/17/18 20:14 Ondansetron HCl (Zofran Inj) 4 mg Q6H PRN IV 01/18/18 20:15 02/17/18 20:14 Polyethylene (Miralax Powder Packet) 17 gm DAILY PRN PO 01/18/18 20:15 02/17/18 20:14 Glucose (Glucose 40% Gel) 15-30 GRAMS 15 GRAMS... UD PRN PO 01/18/18 20:15 02/17/18 20:14 Glucose (Glucose Chew Tab) 4-8 Tablets 4 Tabl... UD PRN PO 01/18/18 20:15 02/17/18 20:14 Dextrose (Dextrose 50% 50ML Syringe) 25-50ML 25ML FOR ... UD PRN IV 01/18/18 20:15 02/17/18 20:14 Glucagon (Glucagon Inj) 1 mg UD PRN SQ 01/18/18 20:15 02/17/18 20:14 Carbohydrates (Carbohydrates For Hypoglycemia) 15-30 GRAMS 15 grams if BSG 54-69... UD PRN PO 01/18/18 20:15 02/17/18 20:14 Atorvastatin Calcium (Lipitor Tab) 40 mg HS PO 01/18/18 21:00 02/17/18 20:59 01/20/18 20:18 40 MG Cholecalciferol (Vitamin D Tab) 1,000 inter.unit DAILY PO 01/19/18 09:00 02/18/18 08:59 01/21/18 09:06 1,000 INTER.UNIT Fish Oil ([place]-3 (Purified Fish Oil) Cap) 1 gm BID PO 01/18/18 21:00 02/17/18 20:59 01/21/18 09:06 1 GM Furosemide (Lasix Tab) 20 mg DAILY PO 01/19/18 09:00 02/18/18 08:59 Future Hold 01/19/18 08:15 20 MG Acetaminophen/ Hydrocodone Bitart ([place] 5/325 Tab) 1 tab Q8H PRN PO 01/18/18 20:15 02/01/18 20:14 01/21/18 10:46 1 TAB Multivitamins (Multivitamin Tab) 1 tab DAILY PO 01/19/18 09:00 02/18/18 08:59 01/21/18 09:06 1 TAB Nadolol (Corgard Tab) 20 mg BID PO 01/18/18 21:00 02/17/18 20:59 01/21/18 09:07 20 MG Rifaximin (Xifaxan Tab) 550 mg BID PO 01/18/18 21:00 02/17/18 20:59 01/21/18 09:06 550 MG Sertraline HCl (Zoloft Tab) 25 mg HS PO 01/18/18 21:00 02/17/18 20:59 01/20/18 20:19 25 MG Spironolactone (Aldactone Tab) 50 mg DAILY PO 01/19/18 09:00 02/18/18 08:59 01/21/18 09:07 50 MG Miscellaneous Information (Consult Glycemic Management Pharmacy) 1 ea DAILY PRN N/A 01/18/18 21:56 02/17/18 21:55 Lorazepam (Ativan Inj) 0.5 mg Q4H PRN IV 01/19/18 09:30 02/18/18 09:29 01/21/18 02:19 0.5 MG Pantoprazole Sodium 40 mg/ Dextrose 100 ml @ 20 mls/hr Q5H IV 01/19/18 11:30 02/18/18 11:29 01/21/18 12:36 20 MLS/HR Insulin Aspart (novoLOG ASPART) SLIDING SCALE ACHS SC 01/20/18 07:00 02/19/18 06:59 01/21/18 12:35 21 UNITS Fenofibrate (Fenofibrate) 160 mg DAILY PO 01/20/18 09:00 02/19/18 08:59 01/21/18 09:08 160 MG Morphine Sulfate (MoRPHine SULFATE INJ) 4 mg Q6H PRN IV 01/20/18 20:15 02/03/18 20:14 01/20/18 20:25 4 MG Gabapentin (Neurontin Tab) 1,200 mg Q24H PO 01/21/18 15:00 02/20/18 14:59 Gabapentin (Neurontin Tab) 600 mg BID PO 01/21/18 09:00 02/20/18 08:59 01/21/18 09:07 600 MG Insulin Glargine (Lantus Solostar Pen) 34 units BID SC 01/21/18 09:00 02/20/18 08:59 01/21/18 08:57 34 UNITS Sodium Chloride 1,000 ml @ 100 mls/hr Q10H IV 01/21/18 09:30 02/20/18 09:29 01/21/18 12:30 100 MLS/HR Objective Vital Signs Date Time Temp Pulse Resp B/P (MAP) Pulse Ox O2 Delivery O2 Flow Rate FiO2 01/21/18 12:22 36.7 74 16 124/69 (87) 94 Room Air 01/21/18 08:52 75 98 01/21/18 08:00 36.7 75 19 95/45 (62) 98 Room Air 01/21/18 04:26 36.6 69 18 93/65 (74) 96 Room Air 01/21/18 01:01 Room Air 01/21/18 00:21 37.1 74 18 105/66 (79) 98 Room Air 01/20/18 19:15 36.4 74 18 123/64 (83) 97 Room Air 01/20/18 16:00 Room Air Physical Exam General Appearance: WD/WN, no apparent distress Respiratory/Chest: lungs clear, no respiratory distress Cardiovascular: no murmur Abdomen: normal bowel sounds, non tender, soft, no organomegaly Neurologic/Psych: alert Skin: warm/dry Laboratory Results Last 24 Hours Test 01/20/18 16:10 01/20/18 20:15 01/21/18 07:37 01/21/18 07:38 Bedside Glucose 173 mg/dl 241 mg/dl 167 mg/dl White Blood Count 6.63 K/uL Red Blood Count 3.78 M/uL Hemoglobin 8.5 g/dL Hematocrit 29.3 % Mean Corpuscular Volume 77.5 fL Mean Corpuscular Hemoglobin 22.5 pg Mean Corpuscular Hemoglobin Concent 29.0 g/dl Platelet Count 217 K/uL Mean Platelet Volume 10.2 fL Neutrophils (%) (Auto) 65.7 % Lymphocytes (%) (Auto) 22.0 % Monocytes (%) (Auto) 9.8 % Eosinophils (%) (Auto) 1.7 % Basophils (%) (Auto) 0.2 % Neutrophils # (Auto) 4.36 K/uL Lymphocytes # (Auto) 1.46 K/uL Monocytes # (Auto) 0.65 K/uL Eosinophils # (Auto) 0.11 K/uL Basophils # (Auto) 0.01 K/uL RDW Standard Deviation 49.0 fL RDW Coefficient of Variation 17.4 % Immature Granulocyte % (Auto) 0.6 % Immature Granulocyte # (Auto) 0.04 K/uL Hypochromasia PRESENT Microcytosis PRESENT Ovalocytes 1+ Sodium Level 139 mmol/L Potassium Level 5.2 mmol/L Chloride Level 109 mmol/L Carbon Dioxide Level 24 mmol/L Anion Gap 6.0 mmol/L Blood Urea Nitrogen 21 mg/dl Creatinine 1.72 mg/dl Est Creatinine Clear Calc Drug Dose 47.3 ml/min Estimated GFR () 45.0 Estimated GFR (Non- 38.9 BUN/Creatinine Ratio 12.4 Random Glucose 168 mg/dl Calcium Level 7.7 mg/dl Total Bilirubin 0.5 mg/dl Aspartate Amino Transf (AST/SGOT) 51 U/L Alanine Aminotransferase (ALT/SGPT) 26 U/L Alkaline Phosphatase 48 U/L Ammonia 50.7 umol/L Total Protein 6.2 gm/dl Albumin 2.6 gm/dl Globulin 3.6 gm/dl Albumin/Globulin Ratio 0.7 Test 01/21/18 11:30 01/21/18 14:29 Bedside Glucose 188 mg/dl Hemoglobin 8.1 g/dL Assessment and Plan GI bleeding--bright red blood --likely lower given normal colored stool mixed in---colo tomorrow esophageal varices--EGD tomorrow also to check on status of varices and look for PUD since on ASA. Also he could have portal gastropathy as well which can contribute to slow bleeding. mental status changes--ammonia slightly high, Wll give one dose of lactulose then getting bowel prep. Other workup per Dr Zayas who feels based on discussion with this is most likely delerium and not acute neurologic process. Fe def anemia from chronic Gi blood loss----drop this afternoon but no saleem GI bleeding cirhosis--nothing acute to do EGD and colo procedure and risks explained to pts which include but not limited to med reaction, bleeding, perforation, aspiration, and missed lesions.
[2018-01-21] MEDS ORDERED: LACTULOSE SYRUP 30 GM/45 ML UDP PO ONE (16:15)
[2018-01-21] MEDS ORDERED: LAVAGE SOLUTION 4000ML PO SCH (17:00)
[2018-01-21] MEDS: ATORVASTATIN 20 MG TAB PO SCH (20:38)
[2018-01-21] MEDS: SERTRALINE HCL 50 MG TAB PO SCH (20:39)
[2018-01-22 03:07] VITALS: BP 108/59; PULSE 73; TEMP 36.8; O2SAT 97
[2018-01-22] MEDS: PANTOprazole INJ 40 MG in DEXTROSE 5% 100ML IV SCH ×4 (04:41→22:38)
--- NOTE | 2018-01-22 06:47 | Family Medicine Progress Note ---
Progress Note Date of Service Jan 22, 2018. Subjective Pt evaluation today including: conversation w/ patient, physical exam, lab review Pain: Patient reports moderate discomfort in left 2nd toe PO Intake: NPO from midnight Voiding: no voiding problems Patient has no complaints this morning. Waxing/waning delirium. Patient originally denied pain, but when asked about his toes he reported pain in left 2nd toe. He is wondering when he will have his tests performed today and reports he is hungry. He denies any bloody stool with his overnight bowel prep. Constitutional: No fever, No chills Respiratory: No cough, No shortness of breath Cardiovascular: No chest pain, No edema, No palpitations Abdomen: + diarrhea, No pain, No nausea, No vomiting, No GI bleeding Neurologic: + memory loss Skin: + new/changing skin lesions (healing wound on left foot from wrapping rubberband around foot) All Other Systems: Reviewed and Negative Medications Current Inpatient Medications Medications (Trade) Dose Ordered Sig/Jeff Route Start Time Stop Time Status Last Admin Dose Admin Acetaminophen (Tylenol Tab) 650 mg Q4H PRN PO 01/18/18 20:15 02/17/18 20:14 01/20/18 07:37 650 MG Al Hydrox/Mg Hydrox/Simethicone (Maalox Max Susp) 15 ml Q4H PRN PO 01/18/18 20:15 02/17/18 20:14 Magnesium Hydroxide (Milk Of Magnesia Susp) 30 ml Q12H PRN PO 01/18/18 20:15 02/17/18 20:14 Ondansetron HCl (Zofran Inj) 4 mg Q6H PRN IV 01/18/18 20:15 02/17/18 20:14 Polyethylene (Miralax Powder Packet) 17 gm DAILY PRN PO 01/18/18 20:15 02/17/18 20:14 Glucose (Glucose 40% Gel) 15-30 GRAMS 15 GRAMS... UD PRN PO 01/18/18 20:15 02/17/18 20:14 Glucose (Glucose Chew Tab) 4-8 Tablets 4 Tabl... UD PRN PO 01/18/18 20:15 02/17/18 20:14 Dextrose (Dextrose 50% 50ML Syringe) 25-50ML 25ML FOR ... UD PRN IV 01/18/18 20:15 02/17/18 20:14 Glucagon (Glucagon Inj) 1 mg UD PRN SQ 01/18/18 20:15 02/17/18 20:14 Carbohydrates (Carbohydrates For Hypoglycemia) 15-30 GRAMS 15 grams if BSG 54-69... UD PRN PO 01/18/18 20:15 02/17/18 20:14 Atorvastatin Calcium (Lipitor Tab) 40 mg HS PO 01/18/18 21:00 02/17/18 20:59 01/21/18 20:38 40 MG Cholecalciferol (Vitamin D Tab) 1,000 inter.unit DAILY PO 01/19/18 09:00 02/18/18 08:59 01/21/18 09:06 1,000 INTER.UNIT Fish Oil ([place]-3 (Purified Fish Oil) Cap) 1 gm BID PO 01/18/18 21:00 02/17/18 20:59 01/21/18 20:38 1 GM Furosemide (Lasix Tab) 20 mg DAILY PO 01/19/18 09:00 02/18/18 08:59 Future Hold 01/19/18 08:15 20 MG Acetaminophen/ Hydrocodone Bitart ([place] 5/325 Tab) 1 tab Q8H PRN PO 01/18/18 20:15 02/01/18 20:14 01/22/18 07:56 1 TAB Multivitamins (Multivitamin Tab) 1 tab DAILY PO 01/19/18 09:00 02/18/18 08:59 01/21/18 09:06 1 TAB Nadolol (Corgard Tab) 20 mg BID PO 01/18/18 21:00 02/17/18 20:59 01/21/18 20:39 20 MG Rifaximin (Xifaxan Tab) 550 mg BID PO 01/18/18 21:00 02/17/18 20:59 01/22/18 07:59 550 MG Sertraline HCl (Zoloft Tab) 25 mg HS PO 01/18/18 21:00 02/17/18 20:59 01/21/18 20:39 25 MG Spironolactone (Aldactone Tab) 50 mg DAILY PO 01/19/18 09:00 02/18/18 08:59 01/22/18 07:59 50 MG Miscellaneous Information (Consult Glycemic Management Pharmacy) 1 ea DAILY PRN N/A 01/18/18 21:56 02/17/18 21:55 Lorazepam (Ativan Inj) 0.5 mg Q4H PRN IV 01/19/18 09:30 02/18/18 09:29 01/21/18 02:19 0.5 MG Pantoprazole Sodium 40 mg/ Dextrose 100 ml @ 20 mls/hr Q5H IV 01/19/18 11:30 02/18/18 11:29 01/22/18 04:41 20 MLS/HR Insulin Aspart (novoLOG ASPART) SLIDING SCALE ACHS SC 01/20/18 07:00 02/19/18 06:59 01/21/18 18:02 2 UNITS Fenofibrate (Fenofibrate) 160 mg DAILY PO 01/20/18 09:00 02/19/18 08:59 01/22/18 07:59 160 MG Morphine Sulfate (MoRPHine SULFATE INJ) 4 mg Q6H PRN IV 01/20/18 20:15 02/03/18 20:14 01/20/18 20:25 4 MG Gabapentin (Neurontin Tab) 1,200 mg Q24H PO 01/21/18 15:00 02/20/18 14:59 01/21/18 16:30 1,200 MG Gabapentin (Neurontin Tab) 600 mg BID PO 01/21/18 09:00 02/20/18 08:59 01/22/18 07:59 600 MG Insulin Glargine (Lantus Solostar Pen) 34 units BID SC 01/21/18 09:00 02/20/18 08:59 Future Hold 01/21/18 08:57 34 UNITS Polyethylene Glycol/ Electrolytes (Golytely Soln) 16 dose TODAY@1700 PO 01/21/18 17:00 02/20/18 16:59 01/21/18 18:00 16 DOSE Iron Sucrose 300 mg/Sodium Chloride 115 ml @ 420 mls/hr TODAY IV 01/22/18 09:45 01/22/18 10:02 UNV Objective Vital Signs Date Time Temp Pulse Resp B/P (MAP) Pulse Ox O2 Delivery O2 Flow Rate FiO2 01/22/18 03:07 36.8 73 17 108/59 (75) 97 Room Air 01/21/18 23:17 36.8 72 16 102/64 (77) 98 Room Air 01/21/18 20:24 Room Air 01/21/18 19:09 36.5 72 18 134/85 (101) 99 Room Air 01/21/18 16:01 37.6 70 17 122/76 (91) 98 Room Air 01/21/18 15:50 Room Air 01/21/18 12:22 36.7 74 16 124/69 (87) 94 Room Air 01/21/18 08:52 75 98 01/21/18 08:00 36.7 75 19 95/45 (62) 98 Room Air Physical Exam General Appearance: WD/WN, no apparent distress Eyes: normal inspection, EOMI ENT: hearing grossly normal Neck: no adenopathy Respiratory/Chest: lungs clear, normal breath sounds, no respiratory distress Cardiovascular: regular rate, rhythm, no edema, no murmur Abdomen: normal bowel sounds, non tender, + distended Extremities: normal inspection, no pedal edema, + pertinent finding (several bruises and healing wounds on Lower extremities) Neurologic/Psychiatric: alert, normal mood/affect, + disoriented (oriented to self, place and month) Skin: warm/dry Laboratory Results Test 01/21/18 07:38 01/21/18 20:13 01/22/18 06:43 RDW Standard Deviation 49.0 fL (36.4-46.3) RDW Coefficient of Variation 17.4 % (11.5-14.5) White Blood Count 6.63 K/uL (4.8-10.8) Red Blood Count 3.78 M/uL (4.7-6.1) Hemoglobin 8.5 g/dL (14.0-18.0) Hematocrit 29.3 % (42-52) Mean Corpuscular Volume 77.5 fL (80-100) Mean Corpuscular Hemoglobin 22.5 pg (25-34) Mean Corpuscular Hemoglobin Concent 29.0 g/dl (32-36) Platelet Count 217 K/uL (130-400) Mean Platelet Volume 10.2 fL (7.4-10.4) Neutrophils (%) (Auto) 65.7 % Lymphocytes (%) (Auto) 22.0 % Monocytes (%) (Auto) 9.8 % Eosinophils (%) (Auto) 1.7 % Basophils (%) (Auto) 0.2 % Neutrophils # (Auto) 4.36 K/uL (1.4-6.5) Lymphocytes # (Auto) 1.46 K/uL (1.2-3.4) Monocytes # (Auto) 0.65 K/uL (0.11-0.59) Eosinophils # (Auto) 0.11 K/uL (0-0.5) Basophils # (Auto) 0.01 K/uL (0-0.2) Immature Granulocyte % (Auto) 0.6 % Immature Granulocyte # (Auto) 0.04 K/uL (0.00-0.02) Hypochromasia PRESENT Microcytosis PRESENT Ovalocytes 1+ Est Creatinine Clear Calc Drug Dose 47.3 ml/min Bedside Glucose 101 mg/dl (70-99) Assessment and Plan Mr. Ceron is a 72 year old male who presented with worsening weakness, dizziness and pallor x 1 week likely in setting of lower GI bleed. Found to have Hgb of 8.9. Also found to have elevated BSG of 670 with normal Bhydroxybutyric acid and pseudohyponatremia of 124. K elevated to 5.3 and Cr to 2.7 (likely from acute YUSRA in the setting of CKD.) PMH: HLD, HTN, Afib (xarelto), splenic infarct in 2016, poorly controlled DM2 ( insulin dependent), compensated cirrhosis with esophageal varices and external hemorrhoids, erosive gastritis, and depression Hyperosmolar hyperglycemic nonketotic syndrome in the setting of poorly controlled DM2 (insulin dependent) - Glycemic consult ongoing -> increased Lantus to 34 units s.q. twice daily -> SSI coverage tightened -> glucose running in low 100s today - received >4L of IVF will DC IVF; K has decreased to 4.6, YUSRA is resolving to baseline - hold home 20mg Lasix Lower GI bleed (BRBPR) - possibly 2/2 hemorrhoids/varices - status post 1 unit of prbcs transfusion on admission - hemoglobin 8.2 this AM - Hold aspirin and xarelto - GI consulted, appreciate recommendations -> pt will undergo endoscopy and colonoscopy this afternoon. NPO until after procedure - Will order venofer to replete iron stores AMS - baseline hx of dementia, unable to tell how much of current AMS is dementia vs. delirium - seems improved from admission, although his was counselled on the waxing & waning nature of delirium - continue to monitor - reports she is concerned by AMS, and is concerned she cannot provide care he requires Compensated Cirrhosis; esophageal varices; hemorrhoids - Continue nadolol 20mg BID - Continue Rifaximin 550mg BID - Continue Spironolactone 50mg daily - Holding lasix. 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 - Creatinine improved to 1.48 (appears to be at or better than baseline) Diabetic Neuropathy - continue gabapentin 600mg BID and 1200mg in afternoon - morphine 4mg q6h prn - Ordered ultrasound: arterial doppler bilaterally HTN/HLD/AFib - Continue home nadolol 20mg BID - Continue home fish oil, fenofibrate and atorvastatin - Hold aspirin and Xarelto Depression - Continue Sertraline 25mg HS DVT prophylaxis: SCD/TEDs Code: Full Dispo: Remains on telemetry - can downgrade to med/surg once Hgb is stable Resident Tracking Resident Involvement: Resident Care Provided Care Provided: Adult Hospital Medicine Reviewed: Pt Seen/Exam by Me History denies any concerns. Constitutional: denies: fever Respiratory: negative: short of breath Cardiovascular: denies chest pain General Appearance: no apparent distress Respiratory: lungs clear, no respiratory distress Cardiovascular: regular rate, rhythm Extremities: other (multiple old scabbed wounds in feet and legs) Neurologic/Psychiatric: alert, other (oriented to place and person. able to say this is 7th month) Skin Characteristics: warm/dry Assessment/Plan Resident Physician Supervision Note: I independently interviewed and examined the patient and verified the bird history and physical, reviewed labs and image studies, discussed the case with the resident Dr. Tellez and agree with the findings and care plan.
[2018-01-22 06:54] LABS: HEMATOCRIT 28.3 % (42-52); HEMOGLOBIN 8.2 g/dL (14.0-18.0); MEAN CELL VOLUME 77.3 fL (80-100); MEAN CORPUSCULAR HEMOGLOBIN 22.4 pg (25-34); MEAN PLATELET VOLUME 9.7 fL (7.4-10.4); PLATELET COUNT 193 K/uL (130-400); RED CELL DISTRIBUTION WIDTH CV 17.6 % (11.5-14.5); RED CELL DISTRIBUTION WIDTH SD 49.3 fL (36.4-46.3)
[2018-01-22] MEDS: INSULIN ASPART 100 UNITS/ML 3 ML PEN SC SCH ×4 (07:00→22:28)
[2018-01-22 07:13] LABS: BASO % 0.2 %; BASO ABS # 0.01 K/uL (0-0.2); EOS ABS # 0.11 K/uL (0-0.5); IG# 0.02 K/uL (0.00-0.02); LYMPH % 23.1 %; LYMPH ABS # 1.27 K/uL (1.2-3.4); MONO ABS # 0.55 K/uL (0.11-0.59); NEUT % 64.3 %; NEUT ABS # 3.54 K/uL (1.4-6.5)
[2018-01-22 07:23] LABS: ALBUMIN 2.6 gm/dl (3.4-5.0); CALCIUM 7.6 mg/dl (8.5-10.1); CREATININE 1.48 mg/dl (0.60-1.40); POTASSIUM 4.6 mmol/L (3.5-5.1); TOTAL PROTEIN 6.3 gm/dl (6.4-8.2)
[2018-01-22 07:41] VITALS: BP 96/59; PULSE 82; TEMP 36.9; O2SAT 94
[2018-01-22] MEDS: SODIUM CHLORIDE 0.9% 1000ML 1,000 ML IV SCH (07:54)
[2018-01-22] MEDS: HYDROCODONE/ACETAMIN 5/325MG TAB PO PRN ×2 (07:56→19:35)
[2018-01-22] MEDS: FENOFIBRATE 160 MG TAB PO SCH (07:59)
[2018-01-22] MEDS: GABAPENTIN 600 MG TAB PO SCH ×3 (07:59→22:27)
[2018-01-22] MEDS: RIFAXIMIN TAB 550 MG TAB PO SCH ×2 (07:59→22:27)
[2018-01-22] MEDS: SPIRONOLACTONE 100 MG TAB PO SCH (07:59)
[2018-01-22] MEDS: MULTIVITAMIN TAB PO SCH (09:00)
[2018-01-22] MEDS ORDERED: INSULIN GLARGINE SOLOSTAR 100 UNITS/ML 3 ML PEN SC SCH ×2 (09:00→21:00)
[2018-01-22] MEDS: CHOLECALCIFEROL 1000 INTER.UNIT TAB PO SCH (09:00)
[2018-01-22] MEDS: OMEGA-3 (PURIFIED FISH OIL) 1 GM CAP PO SCH ×2 (09:00→22:30)
[2018-01-22] MEDS: NADOLOL 40 MG TAB PO SCH ×2 (09:00→22:29)
--- NOTE | 2018-01-22 09:14 | Pharmacy Progress Note ---
Pharmacy Glycemic Short Note 2 Date of Service Jan 22, 2018. OUTPATIENT ANTIDIABETIC REGIMEN: * Novolin 70/30 90 units SQ BID Updated per CDE note that was confirmed with patient's * A1c = 12% 01/19/18 Test 01/21/18 11:30 01/21/18 16:26 01/21/18 20:13 01/22/18 06:43 Bedside Glucose 188 mg/dl (70-99) 112 mg/dl (70-99) 101 mg/dl (70-99) Random Glucose 101 mg/dl (70-99) Test 01/22/18 07:26 Bedside Glucose 106 mg/dl (70-99) ASSESSMENT: 01/22/18 * Patient received 86 units of insulin yesterday * Scheduled for a colonoscopy today so 1/2 dose of Lantus was ordered last night by evening glycemic pharmacist * Fasting BSG WNL this AM. Will give another 1/2 dose of Lantus this AM and plan to resume full dose Lantus tonight if patient back on a diet * Postprandial BSGs WNL yesterday - will continue same CF/CR 01/21/18 * Poorly controlled type 2 diabetic admitted for Lower GIB, anemia, YUSRA * Transitioned off of insulin drip on 01/19, can now lower goal range * Blood sugars slightly elevated after meals and not quite coming back down to goal range overnight, increase Lantus and tighten CF and CR PLAN FOR INPATIENT GLYCEMIC CONTROL: * Basal insulin - another 1/2 dose this AM for NPO status * Lantus 17 units this AM * Lantus 34 units SQ BID resuming tonight * Bolus insulin - no change * Goal range 120mg/dl - 150mg/dl * Correction Factor: 15 mg/dL/unit * Nutritional / Prandial insulin per carb ratio of 1 unit per 4 grams CHO consumed with meals PLAN FOR DISCHARGE: * Elevated BSGs prior to admission and A1c of 12% * Patient was previously on Novolin 70/30 150 units BID up until ~2 months ago * Increase Novolin 70/30 to 120 units BID and f/u with outpatient provider
[2018-01-22] MEDS ORDERED: IRON SUCROSE INJ 300 MG in SODIUM CHLORIDE 0.9% 100ML 100 ML IV SCH (11:00)
[2018-01-22 11:39] VITALS: BP 98/58; PULSE 84; TEMP 36.5; O2SAT 96
[2018-01-22] MEDS: IRON SUCROSE INJ 300 MG in SODIUM CHLORIDE 0.9% 250ML IV SCH (12:05)
[2018-01-22] MEDS ORDERED: PROPOFOL IV EMULSION 10 MG/ML 20 ML VIAL ONE (14:35)
[2018-01-22] MEDS ORDERED: LIDOCAINE HCL 2% 2 ML VIAL (20MG/ML) ONE (14:35)
--- NOTE | 2018-01-22 14:52 | Endo History and Physical ---
History & Physical Date of Service: Jan 22, 2018. Chief Complaint: Anemia Referring Physician: Fernando History of Present Illness For EGD and colonoscopy Past Surgical History Hx Cardiac Surgery: No Hx Abdominal Surgery: No Hx Post-Op Nausea and Vomiting: No Hx Cancer Surgery: No Hx Thoracic Surgery: No Hx Orthopedic: Yes (back surgery ) Hx Urinary Tract Surgery: No Social History Smoking Status: Former Smoker Hx Substance Use: No Hx Alcohol Use: No Allergies Coded Allergies: No Known Allergies (Unverified , 01/18/18) Current Medications Reported Home Medications Medications Dose Route/Sig Max Daily Dose Days Date Category Dose Instructions Lasix (Furosemide) 20 Mg Tab 20 Mg PO DAILY 12/05/17 Reported Xarelto (Rivaroxaban) 15 Mg Tab 1 Tab PO DAILY 12/05/17 Reported [place] 5MG/325MG (Acetaminophen/Hydrocodone Bitart) Tab 1 Tablet PO PRN 12/05/17 Reported PRN PAIN Xifaxan (Rifaximin) 550 Mg Tab 550 Mg PO BID 12/05/17 Reported Aldactone (Spironolactone) 50 Mg Tab 50 Mg PO DAILY 12/05/17 Reported Corgard (Nadolol) 20 Mg Tab 20 Mg PO BID 12/05/17 Reported Neurontin (Gabapentin) 300 Mg Cap 1,200 Mg PO DAILY 12/05/17 Reported pt takes 600mg in the morning and night and 1200mg in the afternoon Bd Pen Needle/Nelly/Ultra (Insulin Pen Needle) 1 Mis Mis Box SC TID 04/15/16 Rx Pantoprazole Sodium (Pantoprazole) 40 Mg Tab 40 Mg PO BID 60 04/15/16 Rx Vitamin D3 (Cholecalciferol) 1,000 Unit Tab 1 Tab PO DAILY 90 04/13/16 Reported Zoloft (Sertraline HCl) 50 Mg Tab 25 Mg PO HS 04/13/16 Reported Novolin 70/30 (Insulin Human Isoph/Insulin Regular) Susp 90 SC BIDM 04/13/16 Reported Multivitamin (Multivitamins) Tab 1 Tab PO DAILY 04/13/16 Reported [place]-3 (Fish Oil) 1 Ea Cap 2 Cap PO BID 04/13/16 Reported Tricor (Fenofibrate) 160 Mg Tab 160 Mg PO DAILY 04/13/16 Reported Lipitor (Atorvastatin Calcium) 40 Mg Tab 40 Mg PO HS 04/13/16 Reported Aspirin Ec (Aspirin) 81 Mg Tab 81 Mg PO DAILY 04/13/16 Reported Vital Signs Weight (Kilograms): 107.400 Height (Feet): 5 Height (Inches): 10.00 Date Time Temp Pulse Resp B/P (MAP) Pulse Ox O2 Delivery O2 Flow Rate FiO2 01/22/18 14:30 36.5 79 20 142/72 (95) 97 Room Air 01/22/18 12:00 Room Air 01/22/18 11:39 36.5 84 18 98/58 (71) 96 01/22/18 08:00 Room Air 01/22/18 07:41 36.9 82 20 96/59 (71) 94 01/22/18 03:07 36.8 73 17 108/59 (75) 97 Room Air 01/21/18 23:17 36.8 72 16 102/64 (77) 98 Room Air 01/21/18 20:24 Room Air 01/21/18 19:09 36.5 72 18 134/85 (101) 99 Room Air 01/21/18 16:01 37.6 70 17 122/76 (91) 98 Room Air 01/21/18 15:50 Room Air Physical Exam General Appearance: + obese, + pertinent finding (skin breakdown) Respiratory/Chest: Respiratory effort: no dyspnea Cardiovascular: Heart Auscultation: RRR Abdomen: Inspection & Palpation: distended Assessment and Plan Anemia for EGD and colonoscopy
--- NOTE | 2018-01-22 15:31 | Discharge Instructions ---
Endoscopy Patient Instructions Date / Procedure(s) Performed Jan 22, 2018. Colonoscopy, EGD Allergy Information Coded Allergies: No Known Allergies (Unverified , 01/18/18) Discharge Date / Findings Jan 22, 2018. Varices, polyps, hemorrhoids Medication Instructions Restart Stopped Medication(s): resume meds Current Inpatient Medications Medications (Trade) Dose Ordered Sig/Jeff Route Start Time Stop Time Status Last Admin Dose Admin Acetaminophen (Tylenol Tab) 650 mg Q4H PRN PO 01/18/18 20:15 02/17/18 20:14 01/20/18 07:37 650 MG Al Hydrox/Mg Hydrox/Simethicone (Maalox Max Susp) 15 ml Q4H PRN PO 01/18/18 20:15 02/17/18 20:14 Magnesium Hydroxide (Milk Of Magnesia Susp) 30 ml Q12H PRN PO 01/18/18 20:15 02/17/18 20:14 Ondansetron HCl (Zofran Inj) 4 mg Q6H PRN IV 01/18/18 20:15 02/17/18 20:14 Polyethylene (Miralax Powder Packet) 17 gm DAILY PRN PO 01/18/18 20:15 02/17/18 20:14 Glucose (Glucose 40% Gel) 15-30 GRAMS 15 GRAMS... UD PRN PO 01/18/18 20:15 02/17/18 20:14 Glucose (Glucose Chew Tab) 4-8 Tablets 4 Tabl... UD PRN PO 01/18/18 20:15 02/17/18 20:14 Dextrose (Dextrose 50% 50ML Syringe) 25-50ML 25ML FOR ... UD PRN IV 01/18/18 20:15 02/17/18 20:14 Glucagon (Glucagon Inj) 1 mg UD PRN SQ 01/18/18 20:15 02/17/18 20:14 Carbohydrates (Carbohydrates For Hypoglycemia) 15-30 GRAMS 15 grams if BSG 54-69... UD PRN PO 01/18/18 20:15 02/17/18 20:14 Atorvastatin Calcium (Lipitor Tab) 40 mg HS PO 01/18/18 21:00 02/17/18 20:59 01/21/18 20:38 40 MG Cholecalciferol (Vitamin D Tab) 1,000 inter.unit DAILY PO 01/19/18 09:00 02/18/18 08:59 01/21/18 09:06 1,000 INTER.UNIT Fish Oil ([place]-3 (Purified Fish Oil) Cap) 1 gm BID PO 01/18/18 21:00 02/17/18 20:59 01/21/18 20:38 1 GM Furosemide (Lasix Tab) 20 mg DAILY PO 01/19/18 09:00 02/18/18 08:59 Future Hold 01/19/18 08:15 20 MG Acetaminophen/ Hydrocodone Bitart ([place] 5/325 Tab) 1 tab Q8H PRN PO 01/18/18 20:15 02/01/18 20:14 01/22/18 07:56 1 TAB Multivitamins (Multivitamin Tab) 1 tab DAILY PO 01/19/18 09:00 02/18/18 08:59 01/21/18 09:06 1 TAB Nadolol (Corgard Tab) 20 mg BID PO 01/18/18 21:00 02/17/18 20:59 01/21/18 20:39 20 MG Rifaximin (Xifaxan Tab) 550 mg BID PO 01/18/18 21:00 02/17/18 20:59 01/22/18 07:59 550 MG Sertraline HCl (Zoloft Tab) 25 mg HS PO 01/18/18 21:00 02/17/18 20:59 01/21/18 20:39 25 MG Spironolactone (Aldactone Tab) 50 mg DAILY PO 01/19/18 09:00 02/18/18 08:59 01/22/18 07:59 50 MG Miscellaneous Information (Consult Glycemic Management Pharmacy) 1 ea DAILY PRN N/A 01/18/18 21:56 02/17/18 21:55 Lorazepam (Ativan Inj) 0.5 mg Q4H PRN IV 01/19/18 09:30 02/18/18 09:29 01/21/18 02:19 0.5 MG Pantoprazole Sodium 40 mg/ Dextrose 100 ml @ 20 mls/hr Q5H IV 01/19/18 11:30 02/18/18 11:29 01/22/18 10:40 20 MLS/HR Insulin Aspart (novoLOG ASPART) SLIDING SCALE ACHS SC 01/20/18 07:00 02/19/18 06:59 01/21/18 18:02 2 UNITS Fenofibrate (Fenofibrate) 160 mg DAILY PO 01/20/18 09:00 02/19/18 08:59 01/22/18 07:59 160 MG Morphine Sulfate (MoRPHine SULFATE INJ) 4 mg Q6H PRN IV 01/20/18 20:15 02/03/18 20:14 01/20/18 20:25 4 MG Gabapentin (Neurontin Tab) 1,200 mg Q24H PO 01/21/18 15:00 02/20/18 14:59 01/21/18 16:30 1,200 MG Gabapentin (Neurontin Tab) 600 mg BID PO 01/21/18 09:00 02/20/18 08:59 01/22/18 07:59 600 MG Iron Sucrose 300 mg/Sodium Chloride 265 ml @ 176.667 mls/hr TODAY@1100 IV 01/22/18 11:00 02/21/18 10:59 01/22/18 12:05 176.667 MLS/HR Insulin Glargine (Lantus Solostar Pen) SEE PROTOCOL TEXT BID SC 01/22/18 21:00 02/21/18 20:59 Provider Instructions Activity Restrictions - No exercising or heavy lifting for 24 hours. - Do not drink alcohol the day of the procedure. - Do not drive a car or operate machinery until the day after the procedure. - Do not make any important decisions or sign important papers in 24 hours after the procedure. Following Day: - Return to full activity which may include returning to work/school. Diet Start your diet with liquids and light foods (jello, soup, juice, toast). Then eat your usual diet if not nauseated. Treatment For Common After Affects For mild abdominal pain, bloating, or excessive gas: - Rest - Eat lightly - Lie on right side Follow-Up Information Follow-up with as scheduled Anesthesia Information What You Should Know You have had a procedure that required some medicine to reduce anxiety and discomfort. This treatment is called moderate sedation. After receiving the treatment, you may be sleepy, but you will be able to breathe on your own. The effects of the treatment may last for several hours. Follow these instructions along with Activity/Diet recommendations noted above: * Do NOT do anything where dizziness or clumsiness would be dangerous. * Rest quietly at home today, then you can be up and about tomorrow. * Have a responsible person stay with you the rest of today. * You may have had an I.V. today. If so, you may take the dressing off later today. Recommendations Call your doctor if: * Trouble breathing * Continuous vomiting for more than 24 hours * Temperature above 101 degrees * Severe abdominal pain or bloating * Pain not relieved by pain medicine ordered * There is increased drainage or redness from any incision * A large amount of rectal bleeding greater than 2-3 tablespoons. (If you had a polyp/s removed or have hemorrhoids, a small amount of blood - from the rectum is to be expected.) * You have any unanswered questions or concerns. IN THE EVENT OF A SERIOUS EMERGENCY, GO TO THE NEAREST EMERGENCY ROOM Your discharge instructions were prepared by provider Jordan King. Patient Instructions Signature Page Clive Ceron Patient (or Guardian) Signature/Date: I have read and understand the instructions given to me by my caregivers. Caregiver/RN/Doctor Signature/Date: The above-named patient and/or guardian has received patient instructions on this date. + Original Patient Signature Page (only) stays with chart. Please make copy for patient.
--- NOTE | 2018-01-22 15:35 | GI REPORT ---
Patient Name: Clive Ceron Procedure Date: 01/22/2018 2:58 PM Date of : 1945 Admit Type: Inpatient Age: 72 Gender: Male Attending MD: Jordan King MD Procedure: Upper GI endoscopy Providers: Jordan King MD Referring MD: Rocio Damico Indications: Iron deficiency anemia Medicines: Propofol total dose 140 mg IV, Lidocaine 40 mg IV Complications: No immediate complications. Estimated Blood Loss: Estimated blood loss: none. Procedure: Pre-Anesthesia Assessment: - Prior to the procedure, a History and Physical was performed, and patient medications, allergies and sensitivities were reviewed. The patient's tolerance of previous anesthesia was reviewed. - The risks and benefits of the procedure and the sedation options and risks were discussed with the patient. All questions were answered and informed consent was obtained. After obtaining informed consent, the endoscope was passed under direct vision. Throughout the procedure, the patient's blood pressure, pulse, and oxygen saturations were monitored continuously. The scope was introduced through the mouth, and advanced to the second part of duodenum. The upper GI endoscopy was accomplished without difficulty. The patient tolerated the procedure well. Findings: Grade III varices were found in the lower third of the esophagus. The Z-line was regular and was found 43 cm from the incisors. A few 4 mm sessile polyps were found in the gastric body. The examined duodenum was normal. Impression: - Grade III esophageal varices. - Z-line regular, 43 cm from the incisors. - A few gastric polyps. - Normal examined duodenum. - No specimens collected. Recommendation: - Return patient to [facility] for ongoing care. Jordan King M.D. Jordan King MD 01/22/2018 3:34:38 PM This report has been signed electronically. Note Initiated On: 01/22/2018 2:58 PM Number of Addenda: 0 I attest to the content of the Intraoperative Record and orders documented therein, exceptions below {[id number]}
--- NOTE | 2018-01-22 15:38 | GI REPORT ---
Patient Name: Clive Ceron Procedure Date: 01/22/2018 3:12 PM Date of : 1945 Admit Type: Inpatient Age: 72 Gender: Male Attending MD: Jordan King MD Procedure: Colonoscopy Providers: Jordan King MD Referring MD: Rocio Damico Indications: Iron deficiency anemia Medicines: Propofol total dose 140 mg IV, Lidocaine 40 mg IV Complications: No immediate complications. Estimated Blood Loss: Estimated blood loss was minimal. Procedure: Pre-Anesthesia Assessment: - Prior to the procedure, a History and Physical was performed, and patient medications, allergies and sensitivities were reviewed. The patient's tolerance of previous anesthesia was reviewed. - The risks and benefits of the procedure and the sedation options and risks were discussed with the patient. All questions were answered and informed consent was obtained. After I obtained informed consent, the scope was passed under direct vision. Throughout the procedure, the patient's blood pressure, pulse, and oxygen saturations were monitored continuously. The scope was introduced through the anus and advanced to the ileocecal valve. The colonoscopy was somewhat difficult due to significant looping. The patient tolerated the procedure well. The quality of the bowel preparation was fair. Findings: Non-bleeding internal hemorrhoids were found during endoscopy. The hemorrhoids were moderate. A 3 mm polyp was found in the sigmoid colon. The polyp was sessile. The polyp was removed with a cold biopsy forceps. Resection and retrieval were complete. Estimated blood loss was minimal. Impression: - Preparation of the colon was fair. - Non-bleeding internal hemorrhoids. - One 3 mm polyp in the sigmoid colon, removed with a cold biopsy forceps. Resected and retrieved. Recommendation: - Discharge patient to home (ambulatory). - Continue present medications. - Await pathology results. Jordan King M.D. Jordan King MD 01/22/2018 3:37:22 PM This report has been signed electronically. Note Initiated On: 01/22/2018 3:12 PM Number of Addenda: 0 I attest to the content of the Intraoperative Record and orders documented therein, exceptions below {[id number]}
--- NOTE | 2018-01-22 16:04 | Anesthesiology Progress Note ---
Anesthesia Post Op Note Date & Time Jan 22, 2018 at 16:04 Vital Signs Pain Intensity: 0.0 Vital Signs Past 12 Hours Date Time Temp Pulse Resp B/P (MAP) Pulse Ox O2 Delivery O2 Flow Rate FiO2 01/22/18 15:51 86 20 118/70 (86) 96 Room Air 01/22/18 15:36 36.7 85 16 105/66 (79) 96 Room Air 01/22/18 14:30 36.5 79 20 142/72 (95) 97 Room Air 01/22/18 12:00 Room Air 01/22/18 11:39 36.5 84 18 98/58 (71) 96 01/22/18 08:00 Room Air 01/22/18 07:41 36.9 82 20 96/59 (71) 94 Notes Mental Status: alert / awake / arousable, participated in evaluation Pt Amnestic to Procedure: Yes Nausea / Vomiting: adequately controlled Pain: adequately controlled Airway Patency, RR, SpO2: stable & adequate BP & HR: stable & adequate Hydration State: stable & adequate Anesthetic Complications: no major complications apparent
--- NOTE | 2018-01-22 16:10 | PROGRESS NOTE ---
DATE: 01/22/2018 The patient presented to the endoscopy center today for EGD and colonoscopy for his anemia. The patient underwent an upper endoscopy first which showed grade 3 esophageal varices in the distal third of the esophagus. There were nonbleeding and no stigmata of bleeding. In the stomach, he had some small polyps in the body of the stomach that were also not an obvious source for blood loss. The duodenum was normal. He subsequently underwent a colonoscopy that was carried to the ileocecal valve. He had a small 3 mm polyp in the sigmoid colon that was removed with a biopsy forceps and some moderately sized internal hemorrhoids which could have been a potential source for blood loss. There was no active bleeding at this time. IMPRESSION AND PLAN: The patient's esophagogastroduodenoscopy and colonoscopy showed esophageal varices, gastric polyps, a colon polyp and some internal hemorrhoids, the most likely bleeding source being the hemorrhoids. We will continue to follow patient during his hospital stay.
[2018-01-22 16:33] VITALS: BP 133/76; PULSE 82; TEMP 36.8; O2SAT 97
[2018-01-22 19:18] VITALS: BP 133/77; PULSE 85; TEMP 36.7; O2SAT 95
[2018-01-22] MEDS: SERTRALINE HCL 50 MG TAB PO SCH (22:28)
[2018-01-22] MEDS: ATORVASTATIN 20 MG TAB PO SCH (22:28)
--- NOTE | 2018-01-22 23:17 | DIAGNOSTIC IMAGING REPORT ---
BILATERAL LOWER EXTREMITY ARTERIAL DOPPLER STUDY CLINICAL HISTORY: bilateraly foot ulceraitons COMPARISON STUDY: Lower extremity arterial Doppler study 10/06/2010. FINDINGS: The right AMAURI measure between 1.3 and 1.2. The left AMAURI measured between 0.76 and 0.73. Mild scattered calcified plaque bilaterally. No areas of arterial occlusion. Biphasic to triphasic normal velocity waveforms seen within the bilateral common femoral, superficial femoral, popliteal, anterior tibial, and right peroneal arteries. There are monophasic lower velocity waveforms seen within the left peroneal, bilateral posterior tibial, and bilateral dorsalis pedis arteries. IMPRESSION: 1. No areas of arterial occlusion within the bilateral lower extremities. 2. Monophasic waveforms seen within the left peroneal, bilateral posterior tibial, and bilateral dorsalis pedis arteries suggestive of diffuse atherosclerotic disease. 3. No areas of hemodynamically significant stenosis identified. 4. Normal right AMAURI measuring between 1.2 and 1.3. Abnormal left AMAURI measured between 0.73 and 0.76 Electronically signed by: Gilson Soto M.D. 01/22/2018 11:15 PM Dictated Date/Time: 01/22/2018 11:11 PM
[2018-01-22 23:32] VITALS: BP 132/79; PULSE 89; TEMP 36.5; O2SAT 96
[2018-01-23] MEDS ORDERED: NURSING VERBAL MED ORDER ONE (00:15)
[2018-01-23 03:04] VITALS: BP 117/55; PULSE 95; TEMP 36.6; O2SAT 95
[2018-01-23] MEDS: PANTOprazole INJ 40 MG in DEXTROSE 5% 100ML IV SCH ×2 (05:30→10:52)
[2018-01-23 06:07] LABS: HEMATOCRIT 30.3 % (42-52); HEMOGLOBIN 8.8 g/dL (14.0-18.0); MEAN CELL VOLUME 77.3 fL (80-100); MEAN CORPUSCULAR HEMOGLOBIN 22.4 pg (25-34); MEAN PLATELET VOLUME 10.3 fL (7.4-10.4); PLATELET COUNT 214 K/uL (130-400); RED CELL DISTRIBUTION WIDTH SD 50.3 fL (36.4-46.3); WHITE BLOOD COUNT 7.59 K/uL (4.8-10.8)
[2018-01-23 06:44] LABS: ALBUMIN 2.8 gm/dl (3.4-5.0); CALCIUM 7.8 mg/dl (8.5-10.1); CREATININE 1.45 mg/dl (0.60-1.40); POTASSIUM 4.1 mmol/L (3.5-5.1); TOTAL PROTEIN 6.6 gm/dl (6.4-8.2)
[2018-01-23 08:00] VITALS: BP 143/79; PULSE 92; TEMP 36.9; O2SAT 96; O2SAT 99
[2018-01-23] MEDS: INSULIN ASPART 100 UNITS/ML 3 ML PEN SC SCH ×3 (08:46→16:59)
[2018-01-23] MEDS: SPIRONOLACTONE 100 MG TAB PO SCH (08:48)
[2018-01-23] MEDS: NADOLOL 40 MG TAB PO SCH (08:54)
[2018-01-23] MEDS: FENOFIBRATE 160 MG TAB PO SCH (08:54)
[2018-01-23] MEDS: MULTIVITAMIN TAB PO SCH (08:54)
[2018-01-23] MEDS: GABAPENTIN 600 MG TAB PO SCH ×2 (08:55→15:37)
[2018-01-23] MEDS: CHOLECALCIFEROL 1000 INTER.UNIT TAB PO SCH (08:56)
[2018-01-23] MEDS: RIFAXIMIN TAB 550 MG TAB PO SCH (08:56)
[2018-01-23] MEDS: OMEGA-3 (PURIFIED FISH OIL) 1 GM CAP PO SCH (08:59)
[2018-01-23] MEDS ORDERED: INSULIN GLARGINE SOLOSTAR 100 UNITS/ML 3 ML PEN SC SCH (09:00)
[2018-01-23] MEDS: MoRPHine SULFATE 4 MG/ML 1 ML CARP\\VIAL IV PRN (10:52)
[2018-01-23] MEDS: IRON SUCROSE INJ 300 MG in SODIUM CHLORIDE 0.9% 250ML IV SCH (10:52)
--- NOTE | 2018-01-23 10:57 | Pharmacy Progress Note ---
Pharmacy Glycemic Short Note 2 Date of Service Jan 23, 2018. OUTPATIENT ANTIDIABETIC REGIMEN: * Novolin 70/30 90 units SQ BID Updated per CDE note that was confirmed with patient's * A1c = 12% 01/19/18 Test 01/22/18 11:19 01/22/18 16:30 01/22/18 20:28 01/23/18 05:31 Bedside Glucose 119 mg/dl (70-99) 80 mg/dl (70-99) 140 mg/dl (70-99) Random Glucose 132 mg/dl (70-99) Test 01/23/18 07:30 Bedside Glucose 153 mg/dl (70-99) ASSESSMENT: 01/23/18 * Mr. Ceron received 51 units of insulin yesterday, while NPO * He received all of this as basal insulin * Will plan to resume usual basal dose but decrease based on est basal requirements ~55 units/day * Current CF/CR appropriate for now 01/22/18 * Patient received 86 units of insulin yesterday * Scheduled for a colonoscopy today so 1/2 dose of Lantus was ordered last night by evening glycemic pharmacist * Fasting BSG WNL this AM. Will give another 1/2 dose of Lantus this AM and plan to resume full dose Lantus tonight if patient back on a diet * Postprandial BSGs WNL yesterday - will continue same CF/CR 01/21/18 * Poorly controlled type 2 diabetic admitted for Lower GIB, anemia, YUSRA * Transitioned off of insulin drip on 01/19, can now lower goal range * Blood sugars slightly elevated after meals and not quite coming back down to goal range overnight, increase Lantus and tighten CF and CR PLAN FOR INPATIENT GLYCEMIC CONTROL: * Basal insulin - decrease * Lantus 28 units BID * Bolus insulin - no change * Goal range 120mg/dl - 150mg/dl * Correction Factor: 15 mg/dL/unit * Nutritional / Prandial insulin per carb ratio of 1 unit per 4 grams CHO consumed with meals PLAN FOR DISCHARGE: * Elevated BSGs prior to admission and A1c of 12% * Patient was previously on Novolin 70/30 150 units BID up until ~2 months ago * Increase Novolin 70/30 to 120 units BID and f/u with outpatient provider
--- NOTE | 2018-01-23 11:27 | Discharge Instructions ---
Discharge Instructions Date of Service Jan 23, 2018. Admission Reason for Admission: Anemia Discharge Discharge Diagnosis / Problem: Elevated blood sugar, low blood count Discharge Goals Goal(s): Decrease discomfort, Increase independence, Prevent Disease Progression Activity Recommendations Activity Limitations: per Instructions/Follow-up section . Instructions / Follow-Up Instructions / Follow-Up During this visit, you were evaluated for weakness, dizziness, and elevated blood sugars. You were investigated for your low blood count from the GI doctors, who found some polyps in your colon, some hemorrhoids (which may be the cause of your low blood count), and they found some dilation of vessels in your esophagus from your ongoing liver disease. This dilation is not a new problem for you. We recommend you follow up closely with the GI doctors to help determine a cause for your low blood counts. They or your primary care provider (Dr. Damico) will follow your blood counts and may suggest you take an oral iron supplement or even suggest outpatient IV iron supplements. We also recommend you closely follow up with your PCP for your blood sugar control. Your glucose level was dangerously high when you were brought to the hospital. The pharmacists have recommended you increase your daily amount of novolin 70/30 to 120U twice daily. Follow up closely with either your diabetes physician or primary care doctor to help get control of your blood sugar levels. Continue to take all of your home medications as prescribed. Please follow up with your PCP within the next 7-10 days. Current Hospital Diet Patient's current hospital diet: Diabetes Type 2 Diet, AHA Diet (Heart Healthy) Discharge Diet Recommended Diet: AHA Diet (Heart Healthy), Diabetes Type 2 Diet Pending Studies Studies pending at discharge: no Laboratory Results Hemoglobin A1c Test 01/19/18 05:52 Range/Units Estimated Average Glucose 298 mg/dl Hemoglobin A1c 12.0 H 4.5-5.6 % Medical Emergencies . Who to Call and When: Medical Emergencies: If at any time you feel your situation is an emergency, please call 911 immediately. . Non-Emergent Contact Non-Emergency issues call your: Primary Care Provider . . "Provider Documentation" section prepared by Radha Tellez. .
--- NOTE | 2018-01-23 11:31 | Discharge Summary ---
Discharge Summary Date of Service Jan 23, 2018. 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) Diabetic Neuropathy HTN, HLD, AFib Depression Procedures: Colonoscopy, Esophagogastroduodenoscopy Consultations: GI, glycemic consult Medication Reconciliation Continued Medications: Aspirin (Aspirin Ec) 81 Mg Tab 81 MG PO DAILY Atorvastatin (Lipitor) 40 Mg Tab 40 MG PO HS, TAB Cholecalciferol (Vitamin D3) 1,000 Unit Tab 1 TAB PO DAILY for 90 Days, #90 TAB 3 Refills Fenofibrate (Tricor) 160 Mg Tab 160 MG PO DAILY, TAB Fish Oil ([place]-3) 1 Ea Cap 2 CAP PO BID, CAP Furosemide (Lasix) 20 Mg Tab 20 MG PO DAILY, TAB Gabapentin (Neurontin) 300 Mg Cap 1200 MG PO DAILY, CAP pt takes 600mg in the morning and night and 1200mg in the afternoon Hydrocodone/Acetaminophen 5MG/325MG ([place] 5MG/325MG) Tab 1 TABLET PO PRN for Pain, TAB PRN PAIN Insulin Isophan/Regular (Novolin 70/30) Susp 120 UNITS SC BIDM for 30 Days Insulin Pen Needle (Bd Pen Needle/Nelly/Ultra) 1 Mis Mis BOX SC TID, #1 3 Refills Multivitamin (Multivitamin) Tab 1 TAB PO DAILY, TAB Nadolol (Corgard) 20 Mg Tab 20 MG PO BID, TAB Pantoprazole (Pantoprazole Sodium) 40 Mg Tab 40 MG PO BID for 60 Days, #60 TABS 2 Refills Rifaximin (Xifaxan) 550 Mg Tab 550 MG PO BID, TAB Rivaroxaban (Xarelto) 15 Mg Tab 1 TAB PO DAILY Sertraline (Zoloft) 50 Mg Tab 25 MG PO HS, TAB Spironolactone (Aldactone) 50 Mg Tab 50 MG PO DAILY, TAB Discharge Exam Review of Systems: Constitutional: No chills Abdomen: No pain, No nausea, No vomiting, No GI bleeding Musculoskeletal: + joint pain (2nd left toe) Neurologic: + memory loss Physical Exam: General Appearance: no apparent distress ENT: hearing grossly normal Respiratory/Chest: lungs clear, normal breath sounds, no respiratory distress, no accessory muscle use Cardiovascular: regular rate, rhythm, no edema, no murmur Abdomen / GI: non tender, soft Extremities: + pertinent finding (Numerous healing bruises and sores on lower extremities bilaterally. Sore from wrapping rubberband around foot to aid with foot pain) Neurologic/Psychiatric: alert, + disoriented (oriented to person, place and month) Hospital Course Mr. Ceron is a 72 year old male who presented with worsening weakness, dizziness and pallor x 1 week likely in setting of lower GI bleed. Found to have Hgb of 8.9. Also found to have elevated BSG of 670 with normal Bhydroxybutyric acid and pseudohyponatremia of 124. K elevated to 5.3 and Cr to 2.7 (likely from acute YUSRA in the setting of CKD.) PMH: HLD, HTN, Afib (xarelto), splenic infarct in 2016, poorly controlled DM2 ( insulin dependent), compensated cirrhosis with esophageal varices and external hemorrhoids, erosive gastritis, and depression Hyperosmolar hyperglycemic nonketotic syndrome in the setting of poorly controlled DM2 (insulin dependent) - Glycemic consult established his home novolin 70/30 should be set at 120 BID - ISS Aspart: CF of 15 mg/dL, Insulin: CHO of 1unit per 4 g carbs consumed - Lantus 28 BID while in hospital. - received >4L of IVF will DC IVF; K decreased to 4.6, YUSRA is resolved to baseline 1.4-1.7 - Resume home 20mg Lasix Lower GI bleed (BRBPR) - possibly 2/2 hemorrhoids/varices - status post 1 unit of prbcs transfusion on admission - hemoglobin 8.8 this AM - Resume aspirin and xarelto - GI consulted, appreciate recommendations -> pt underwent endoscopy and colonoscopy during admission. Known esophageal varices, colonic polyps, hemorrhoids, no clear source of bleeding. - Order venofer to replete iron stores AMS - baseline hx of dementia, unable to tell how much of current AMS is dementia vs. delirium - seems improved from admission, although his was counselled on the waxing & waning nature of delirium - continue to monitor - reports she is concerned by AMS, and is concerned she cannot provide care at home that he requires. - did state today, however, that daughter in law is a nurse and lives next door and can help assist. 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 - Creatinine improved to 1.45 (appears to be at or better than baseline) Diabetic Neuropathy - continue gabapentin 600mg BID and 1200mg in afternoon - morphine 4mg q6h prn - Ordered ultrasound: arterial doppler bilaterally, LLE AMAURI of 0.7, RLE AMAURI of 1.2 HTN/HLD/AFib - Continue home nadolol 20mg BID - Continue home fish oil, fenofibrate and atorvastatin - Resume aspirin and Xarelto Depression - Continue Sertraline 25mg HS Code: Full Total Time Spent: Greater than 30 minutes This includes examination of the patient, discharge planning, medication reconciliation, and communication with other providers. Discharge Instructions Please refer to the electronic Patient Visit Report (Discharge Instructions) for additional information. Additional Copies To Rocio Damico M.D.; [facility] Resident Tracking Resident Involvement: Resident Care Provided Care Provided: Adult Hospital Medicine Reviewed: Pt Seen/Exam by Me History no rectal bleeding Constitutional: denies: fever Respiratory: negative: short of breath Cardiovascular: denies chest pain General Appearance: no apparent distress Respiratory: lungs clear, no respiratory distress Cardiovascular: regular rate, rhythm Neurologic/Psychiatric: alert, oriented x 3 Skin Characteristics: warm/dry Assessment/Plan Resident Physician Supervision Note: I independently interviewed and examined the patient and verified the bird history and physical, reviewed labs and image studies, discussed the case with the resident Dr. Tellez and agree with the findings and care plan. Time spent in discharge 40min
[2018-01-23 11:44] VITALS: BP_SYST 118; BP_SYST 131; BP_DIAS 59; BP_DIAS 68; PULSE 100; PULSE 88; TEMP 37; O2SAT 96
[2018-01-23] MEDS ORDERED: FERR1TAB13 PO (13:58)
[2018-01-23] MEDS: HYDROCODONE/ACETAMIN 5/325MG TAB PO PRN (14:15)
--- NOTE | 2018-01-23 14:31 | Gastroenterology Progress Note ---
Progress Note Date of Service: Jan 23, 2018 Subjective Pt evaluation today including: conversation w/ patient, conversation w/ family (son), physical exam, chart review, lab review, review of studies, review of inpatient medication list cc f/u GI bleeding HPI History per nurse and chart and patient. Pt with loose stools today but no red nor black stools. No abd pain. Pt alert and conversant today. Review of Systems Respiratory: No shortness of breath Cardiac: No chest pain Medications Current Inpatient Medications Medications (Trade) Dose Ordered Sig/Jeff Route Start Time Stop Time Status Last Admin Dose Admin Acetaminophen (Tylenol Tab) 650 mg Q4H PRN PO 01/18/18 20:15 02/17/18 20:14 01/20/18 07:37 650 MG Al Hydrox/Mg Hydrox/Simethicone (Maalox Max Susp) 15 ml Q4H PRN PO 01/18/18 20:15 02/17/18 20:14 Magnesium Hydroxide (Milk Of Magnesia Susp) 30 ml Q12H PRN PO 01/18/18 20:15 02/17/18 20:14 Ondansetron HCl (Zofran Inj) 4 mg Q6H PRN IV 01/18/18 20:15 02/17/18 20:14 Polyethylene (Miralax Powder Packet) 17 gm DAILY PRN PO 01/18/18 20:15 02/17/18 20:14 Glucose (Glucose 40% Gel) 15-30 GRAMS 15 GRAMS... UD PRN PO 01/18/18 20:15 02/17/18 20:14 Glucose (Glucose Chew Tab) 4-8 Tablets 4 Tabl... UD PRN PO 01/18/18 20:15 02/17/18 20:14 Dextrose (Dextrose 50% 50ML Syringe) 25-50ML 25ML FOR ... UD PRN IV 01/18/18 20:15 02/17/18 20:14 Glucagon (Glucagon Inj) 1 mg UD PRN SQ 01/18/18 20:15 02/17/18 20:14 Carbohydrates (Carbohydrates For Hypoglycemia) 15-30 GRAMS 15 grams if BSG 54-69... UD PRN PO 01/18/18 20:15 02/17/18 20:14 Atorvastatin Calcium (Lipitor Tab) 40 mg HS PO 01/18/18 21:00 02/17/18 20:59 01/22/18 22:28 40 MG Cholecalciferol (Vitamin D Tab) 1,000 inter.unit DAILY PO 01/19/18 09:00 02/18/18 08:59 01/23/18 08:56 1,000 INTER.UNIT Fish Oil ([place]-3 (Purified Fish Oil) Cap) 1 gm BID PO 01/18/18 21:00 02/17/18 20:59 01/21/18 20:38 1 GM Furosemide (Lasix Tab) 20 mg DAILY PO 01/19/18 09:00 02/18/18 08:59 Future Hold 01/19/18 08:15 20 MG Acetaminophen/ Hydrocodone Bitart ([place] 5/325 Tab) 1 tab Q8H PRN PO 01/18/18 20:15 02/01/18 20:14 01/23/18 14:15 1 TAB Multivitamins (Multivitamin Tab) 1 tab DAILY PO 01/19/18 09:00 02/18/18 08:59 01/23/18 08:54 1 TAB Nadolol (Corgard Tab) 20 mg BID PO 01/18/18 21:00 02/17/18 20:59 01/23/18 08:54 20 MG Rifaximin (Xifaxan Tab) 550 mg BID PO 01/18/18 21:00 02/17/18 20:59 01/23/18 08:56 550 MG Sertraline HCl (Zoloft Tab) 25 mg HS PO 01/18/18 21:00 02/17/18 20:59 01/22/18 22:28 25 MG Spironolactone (Aldactone Tab) 50 mg DAILY PO 01/19/18 09:00 02/18/18 08:59 01/23/18 08:48 50 MG Miscellaneous Information (Consult Glycemic Management Pharmacy) 1 ea DAILY PRN N/A 01/18/18 21:56 02/17/18 21:55 Lorazepam (Ativan Inj) 0.5 mg Q4H PRN IV 01/19/18 09:30 02/18/18 09:29 01/21/18 02:19 0.5 MG Pantoprazole Sodium 40 mg/ Dextrose 100 ml @ 20 mls/hr Q5H IV 01/19/18 11:30 02/18/18 11:29 01/23/18 10:52 20 MLS/HR Insulin Aspart (novoLOG ASPART) SLIDING SCALE ACHS SC 01/20/18 07:00 02/19/18 06:59 01/23/18 12:26 8 UNITS Fenofibrate (Fenofibrate) 160 mg DAILY PO 01/20/18 09:00 02/19/18 08:59 01/23/18 08:54 160 MG Morphine Sulfate (MoRPHine SULFATE INJ) 4 mg Q6H PRN IV 01/20/18 20:15 02/03/18 20:14 01/23/18 10:52 4 MG Gabapentin (Neurontin Tab) 1,200 mg Q24H PO 01/21/18 15:00 02/20/18 14:59 01/21/18 16:30 1,200 MG Gabapentin (Neurontin Tab) 600 mg BID PO 01/21/18 09:00 02/20/18 08:59 01/23/18 08:55 600 MG Iron Sucrose 300 mg/Sodium Chloride 265 ml @ 176.667 mls/hr TODAY@1100 IV 01/22/18 11:00 02/21/18 10:59 01/23/18 10:52 176.667 MLS/HR Insulin Glargine (Lantus Solostar Pen) 28 units BID SC 01/23/18 09:00 02/22/18 08:59 01/23/18 08:47 28 UNITS Objective Vital Signs Date Time Temp Pulse Resp B/P (MAP) Pulse Ox O2 Delivery O2 Flow Rate FiO2 01/23/18 11:44 37.0 100 18 131/68 (89) 96 01/23/18 08:00 99 Room Air 01/23/18 08:00 36.9 92 18 143/79 (100) 96 01/23/18 03:04 36.6 95 21 117/55 (75) 95 Room Air 01/22/18 23:32 36.5 89 23 132/79 (96) 96 Room Air 01/22/18 20:00 Room Air 01/22/18 19:18 36.7 85 20 133/77 (95) 95 Room Air 01/22/18 16:33 36.8 82 18 133/76 (95) 97 Room Air 01/22/18 16:06 78 20 123/78 (93) 96 Room Air 01/22/18 15:51 86 20 118/70 (86) 96 Room Air 01/22/18 15:36 36.7 85 16 105/66 (79) 96 Room Air 01/22/18 14:30 36.5 79 20 142/72 (95) 97 Room Air Physical Exam General Appearance: WD/WN, no apparent distress Respiratory/Chest: lungs clear, no respiratory distress Cardiovascular: no murmur Abdomen: normal bowel sounds, non tender, soft Neurologic/Psych: alert Skin: normal color, warm/dry Laboratory Results Last 24 Hours Test 01/22/18 16:30 01/22/18 20:28 01/23/18 05:31 01/23/18 07:30 Bedside Glucose 80 mg/dl 140 mg/dl 153 mg/dl White Blood Count 7.59 K/uL Red Blood Count 3.92 M/uL Hemoglobin 8.8 g/dL Hematocrit 30.3 % Mean Corpuscular Volume 77.3 fL Mean Corpuscular Hemoglobin 22.4 pg Mean Corpuscular Hemoglobin Concent 29.0 g/dl RDW Standard Deviation 50.3 fL RDW Coefficient of Variation 18.0 % Platelet Count 214 K/uL Mean Platelet Volume 10.3 fL Sodium Level 138 mmol/L Potassium Level 4.1 mmol/L Chloride Level 108 mmol/L Carbon Dioxide Level 21 mmol/L Anion Gap 9.0 mmol/L Blood Urea Nitrogen 14 mg/dl Creatinine 1.45 mg/dl Est Creatinine Clear Calc Drug Dose 56.8 ml/min Estimated GFR () 55.4 Estimated GFR (Non- 47.8 BUN/Creatinine Ratio 9.8 Random Glucose 132 mg/dl Calcium Level 7.8 mg/dl Total Bilirubin 0.8 mg/dl Aspartate Amino Transf (AST/SGOT) 46 U/L Alanine Aminotransferase (ALT/SGPT) 25 U/L Alkaline Phosphatase 52 U/L Total Protein 6.6 gm/dl Albumin 2.8 gm/dl Globulin 3.8 gm/dl Albumin/Globulin Ratio 0.7 Test 01/23/18 11:25 Bedside Glucose 178 mg/dl Assessment and Plan GI bleeding--bright red blood --resolved, likely from hemorrhoids found on colonoscopy esophageal varices--EGD grade III and not source of bleeding so not banded. mental status changes--resp;reta Fe def anemia from chronic Gi blood loss----stable colon polyp--path pending diarrhea--cdiff negative cirhosis--nothing acute to do No further bleeding. Source of bleeding likely hemorrhoidal. Will sign off. f/ u in GI office for cirrhosis. .
[2018-01-23 15:00] VITALS: BP 123/68; PULSE 71; TEMP 37.1; O2SAT 94
[2018-01-23 16:00] VITALS: O2SAT 94
[2018-01-23 16:19] VITALS: BP 123/68; PULSE 71; TEMP 37.1; O2SAT 94
== END 2018-01-23 17:00 | DRG 377 ==
LOC: C.EDB 15:28 → C.2E 20:19 → ENRESERV 20:35
PROVIDERS: ADMIT Internal Medicine Sports Medicine; ATTEND Family Medicine
PROC: 0DJ08ZZ Inspection of Upper Intestinal Tract, Via Natural or Artificial Opening Endoscopic (ICD-10-PCS; principal; 2018-01-22 14:26)
PROC: 0DBN8ZZ Excision of Sigmoid Colon, Via Natural or Artificial Opening Endoscopic (ICD-10-PCS; principal; 2018-01-22 14:26)
DX: K62.5 Hemorrhage of anus and rectum (principal); G93.49 Other encephalopathy; N17.9 Acute kidney failure, unspecified; D62 Acute posthemorrhagic anemia; I85.00 Esophageal varices without bleeding; E11.00 Type 2 diabetes mellitus with hyperosmolarity without nonketotic hyperglycemic-hyperosmolar coma (NKHHC); E11.22 Type 2 diabetes mellitus with diabetic chronic kidney disease; I12.9 Hypertensive chronic kidney disease with stage 1 through stage 4 chronic kidney disease, or unspecified chronic kidney disease; N18.4 Chronic kidney disease, stage 4 (severe); D12.5 Benign neoplasm of sigmoid colon; E78.5 Hyperlipidemia, unspecified; I48.91 Unspecified atrial fibrillation; E11.65 Type 2 diabetes mellitus with hyperglycemia; F32.9 Major depressive disorder, single episode, unspecified; E86.0 Dehydration; R41.82 Altered mental status, unspecified; F03.90 Unspecified dementia, unspecified severity, without behavioral disturbance, psychotic disturbance, mood disturbance, and anxiety; E11.40 Type 2 diabetes mellitus with diabetic neuropathy, unspecified; Z79.01 Long term (current) use of anticoagulants; Z79.82 Long term (current) use of aspirin; Z79.899 Other long term (current) drug therapy; Z87.891 Personal history of nicotine dependence

== ENCOUNTER 2018-08-15 17:58 | Inpatient (IN) ==
[2018-08-15] MEDS ORDERED: HYDROmorphone INJ 1 MG/ML SYRINGE IV STA ×2 (18:15→21:57)
--- NOTE | 2018-08-15 18:29 | XRay Report ---
XR chest 1V portable CLINICAL HISTORY: Sepsis COMPARISON STUDY: 01/18/2018 FINDINGS: The heart is borderline enlarged. There is no failure. There is no focal pulmonary consolid ation. There are no pleural effusions. There is mild elevation/eventration right hemidiaphragm.[ IMPRESSION: No active disease in the chest. Electronically signed by: Nik Campos M.D. 08/15/2018 6:28 PM
[2018-08-15 19:21] LABS: iSTAT Hemoglobin 15.3 g/dl (14.0-18.0); iSTAT Ionized Calcium 1.09 mmol/l (1.12-1.32)
[2018-08-15 19:27] LABS: Basophils # (auto) 0.02 K/uL (0-0.2); Basophils % (auto) 0.2 %; Eosinophils # (auto) 0.09 K/uL (0-0.5); Eosinophils % (auto) 0.7 %; Hematocrit (blood only) 42.6 % (42-52); Hemoglobin 13.9 g/dL (14.0-18.0); Immature Granulocytes % (auto) 0.8 %; Lymphocytes # (auto) 0.79 K/uL (1.2-3.4); Lymphocytes % (auto) 6.5 %; Mean Corpuscular Hgb Conc 32.6 g/dL (32-36); Mean Corpuscular Volume 97.7 fL (80-100); Mean Platelet Volume 10.9 fL (7.4-10.4); Monocytes # (auto) 0.88 K/uL (0.11-0.59); Monocytes % (auto) 7.2 %; Neutrophils # (auto) 10.33 K/uL (1.4-6.5); Neutrophils % (auto) 84.6 %; Platelet Count 366 K/uL (130-400); RDW Coefficient of Variation 15.2 % (11.5-14.5); RDW Standard Deviation 54.3 fL (36.4-46.3); Red Blood Count 4.36 M/uL (4.7-6.1); White Blood Count 12.21 K/uL (4.8-10.8)
[2018-08-15 19:35] LABS: Alanine Aminotransferase 23 U/L (12-78); Aspartate Aminotransferase 38 U/L (15-37); BUN Creatinine Ratio 14.3 (10-20); Blood Urea Nitrogen 32 mg/dl (7-18); Calcium 8.8 mg/dl (8.5-10.1); Carbon Dioxide 31 mmol/L (21-32); Chloride 102 mmol/L (98-107); Est GFR (Non-African American) 28.5; Glucose 193 mg/dl (70-99); Potassium 4.6 mmol/L (3.5-5.1); Sodium 137 mmol/L (136-145)
[2018-08-15 19:37] LABS: Albumin Globulin Ratio 0.7 (0.9-2); Alkaline Phosphatase 66 U/L (45-117); Bilirubin,Total 1.2 mg/dl (0.2-1); Globulin 4.1 gm/dl (2.5-4.0); Total Protein 7.1 gm/dl (6.4-8.2)
[2018-08-15 19:39] LABS: INR 1.5 (0.9-1.1); Partial Thromboplastin Ratio 1.2; Partial Thromboplastin Time 32.2 Seconds (21.0-31.0)
--- NOTE | 2018-08-15 19:51 | CT Scan Report ---
CT SCAN OF THE ABDOMEN AND PELVIS WITHOUT CONTRAST CLINICAL HISTORY: diffuse abd pain COMPARISON STUDY: 05/06/2016 TECHNIQUE: CT scan of the abdomen and pelvis was performed from the lung bases to the proximal femurs . Images are reviewed in the axial, sagittal, and coronal planes. IV contrast was not administered fo r this examination. A dose lowering technique was utilized adhering to the principles of ALARA. CT DOSE: 1853.53 mGy.cm FINDINGS: Lower chest: There are coronary artery calcifications. There is no focal pulmonary consolidation. The re are mild dependent atelectatic changes. There are trace pleural effusions. Liver: The liver has a cirrhotic morphology. No focal masses are visualized on this noncontrast study . Gallbladder: Unremarkable. Spleen: There is an old splenic infarct. No other splenic abnormalities are evident. Pancreas: Unremarkable. Adrenal glands: Unremarkable. Kidneys: There are hyperdense pyramids versus faint renal calculi. There is no hydronephrosis. No ure teral calculi are visualized. Bowel: There are no transition zones indicate bowel obstruction. There is colonic diverticulosis. The re are no findings to indicate acute appendicitis. There is mild bowel wall thickening involving the ascending colon. This a nonspecific finding which could be secondary to hepatocellular disease. There is possible gastric wall thickening versus a nondistended stomach. Peritoneum: There is a large volume of ascites. No free intraperitoneal air is visualized. Vasculature: The abdominal aorta is normal in course and caliber. Adenopathy: None. Pelvic viscera: The bladder, and pelvic viscera are unremarkable. Skeletal structures: No destructive osseous lesions are seen. IMPRESSION: 1. Cirrhotic morphology of the liver 2. Old splenic infarct 3. Large volume of ascites 4. No evidence of bowel obstruction. No evidence of free air 5. Gastric wall thickening/edema versus a nondistended stomach 6. Mild colonic wall thickening, a nonspecific finding which may be secondary to the patient's cirrho tic state Electronically signed by: Nik Campos M.D. 08/15/2018 7:49 PM
[2018-08-15] MEDS ORDERED: PIPERACILL/TAZOBAC CONSULT ACTIVE PRN (19:58)
[2018-08-15] MEDS ORDERED: VANCOMYCIN CONSULT ACTIVE PRN (19:58)
[2018-08-15] MEDS ORDERED: VANCOMYCIN HCL 2,250 MG in SODIUM CHLORIDE 0.9% 500 ML IV ONE (19:58)
[2018-08-15] MEDS ORDERED: PIPERACILLIN/TAZOBACTAM 4.5 GM/120 ML BAG IV ONE (19:58)
[2018-08-15] MEDS ORDERED: HYDROmorphone HCL 2 MG TAB PO PRN (21:49)
[2018-08-15] MEDS ORDERED: LACTULOSE SYRUP 10 GM/15 ML BTL 473 ML PO PRN (21:49)
[2018-08-15] MEDS ORDERED: NALOXONE HCL 0.4 MG/1 ML VIAL/CARP SC PRN (21:49)
--- NOTE | 2018-08-15 22:30 | History & Physical Report ---
Date of Service August 15, 2018 Assessment & Plan (1) Abdominal pain: Abdominal pain/Ascites/Cirrhosis/varices/hemorrhoids -MELD score of 19. Would recommend discussion regarding prognosis. -Dilaudid for pain -GI consult -Ordered for paracentesis tomorrow, NPO from midnight -Held ASA and heparin and home lasix -Given dose of albumin 25 and 40 lasix IV overnight -Continue nadolol, rifaximin, spironolactone, lactulose -No current concern for SBP AMS/Dementia/Chronic encephalopathy -Has been dx with dementia, would suspect more likely chronic encephalopathy - has previously voiced concern over her ability to care for him at home -Consider discussing options with palliative care and case management -Supportive care (reorienting, etc) Acute on Chronic CKDIII-IV -Pt not candidate for dialysis and reports he would decline if offered -Per outpatient records, Cr varies widely between 1.5-2.7 -Continue to monitor closely, consider nephrology consult Poorly controlled DM (Nephropathy, neuropathy) -Continue gabapentin -PO dilaudid prn (pt on IV dilaudid prn for abdo pain) -Wound care for feet -Pt had AMAURI testing in December 2017: LLE 0.7, RLE 1.2 -Continue home insulin regimen of 70/10 120AM/90PM. Consider ISS if numbers not controlled -Previous ISS: 28 lantus BID, Aspart CF of 15, insulin:cho 1:4g carbs -Hb A1c in AM ordered. HTN/HLD/Afib -Cont nadolol, fenofibrate, atorvastatin -ASA, xarelto on hold -May need heparin bridge if not having paracentesis in AM Depression -Cont home sertraline 25 HS Anemia -Cont ferrous sulfate DVTP: SCDs, may need bridging if no paracentesis in AM CODE: full Dispo: admit to med/surg, awaiting further evaluation (2) Cirrhosis: (3) Altered mental status: (4) Hypertension: (5) Diabetes: (6) Atrial fibrillation: (7) Hyperlipidemia: (8) Splenic infarct: (9) Dementia: (10) Encephalopathy: (11) CKD (chronic kidney disease), stage III: (12) Diabetic nephropathy: (13) Diabetic neuropathy: (14) Depression: (15) Erosive gastritis: (16) Hemorrhoids: (17) Esophageal varices: History of Present Illness Chief Complaint: Abdominal pain Primary Care Provider: Rocio Damico MD Patient ia a 73yo M, PMH Liver cirrhosis (AREVALO) with known esophageal varices/ external hemorrhoids, HLD, HTN, Afib (xarelto), splenic infarct (2016), IDDM ( poorly controlled, with neuropathy and nephropathy CKDIII), Dementia, depression presents with acute abdominal pain. Per ER staff, pt's was in ER today for broken ankle, and brought along for increasing confusion and acute abdominal pain. Patient has known progressive liver disease and recently received outpatient therapeutic paracentesis about 3-4 weeks ago which yielded 8.5L of fluid. That was the second time he has had therapeutic paracentesis. He follows with Dr. King and Dr. Villa for his liver and kidney issues. reports increasing confusion in the past few days but the abdominal pain has become intolerable in just the past 24 hours. She and son also report general deconditioning and decline in functional status, decrease food and fluid intake, and appears dizzy when standing (which the patient denies). Labs in ER significant for INR of 1.5, ammonia of 37, lactate 2.4, Cr of 2.21 Allergies Allergy/AdvReac Type Severity Reaction Status Date / Time No Known Allergies Allergy Unverified 08/15/18 19:47 Home Medications Home Medications Medication Instructions Recorded Confirmed Type aspirin [Aspir-81] 81 mg PO DAILY 08/15/18 08/15/18 History atorvastatin 40 mg PO HS 08/15/18 08/15/18 History fenofibrate 160 mg PO DAILY 08/15/18 08/15/18 History ferrous sulfate [FeroSul] 325 mg PO BID 08/15/18 08/15/18 History furosemide [Lasix] 40 mg PO DAILY 08/15/18 08/15/18 History gabapentin 600 mg PO UD 08/15/18 08/15/18 History gabapentin [Neurontin] 1,200 mg PO DAILY 08/15/18 08/15/18 History gabapentin [Neurontin] 300 mg PO BID 08/15/18 08/15/18 History hydromorphone [Dilaudid] 2 - 4 mg PO Q4 PRN 08/15/18 08/15/18 History insulin NPH and regular human 90 unit SUBCUT QPM 08/15/18 08/15/18 History [Novolin 70/30 U-100 Insulin] insulin NPH and regular human 120 unit SUBCUT QAM 08/15/18 08/15/18 History [Novolin 70/30 U-100 Insulin] lactulose 15 ml PO DAILY PRN 08/15/18 08/15/18 History multivitamin 1 tab PO DAILY 08/15/18 08/15/18 History nadolol [Corgard] 20 mg PO BID 08/15/18 08/15/18 History naloxone [Narcan] 1 dose INTRANASAL UD PRN 08/15/18 08/15/18 History pantoprazole [Protonix] 40 mg PO BID 08/15/18 08/15/18 History rifaximin [Xifaxan] 550 mg PO BID 08/15/18 08/15/18 History rivaroxaban [Xarelto] 15 mg PO DAILY 08/15/18 08/15/18 History sertraline [Zoloft] 25 mg PO HS 08/15/18 08/15/18 History spironolactone [Aldactone] 50 mg PO DAILY 08/15/18 08/15/18 History Past Med/Surg History Medical History Cirrhosis (Chronic) Atrial fibrillation (Chronic) Diabetes (Chronic) Hypertension (Chronic) Social History marital status: Current Living Situation: Spouse current occupational status: retired Other Information That Helps Us Care for You: No Feels Safe at Home: Yes Safety Concerns: Feels Safe At This Time Smoking Status: Former smoker Do You Dip or Chew Tobacco: No Second Hand Exposure: No Tobacco Cessation Education Requested by Patient: No Hx Alcohol Use: No Hx Substance Use: No Beliefs That Will Affect Care: None Communication Ability: Effective Review of Systems Unobtainable due to cognitive status Patient encephalopathic, but able to report he has abdominal pain from too much fluid in his belly, pain in his legs, and declines chest pain. He also repeatedly reports he is very thirsty. Physical Exam 2 Vital Signs (Past 24 Hours): Last Vital Signs Temp 36.3 C L 08/15/18 18:03 Pulse 115 H 08/15/18 21:00 Resp 23 08/15/18 21:30 BP 105/68 08/15/18 22:00 Pulse Ox 94 08/15/18 22:00 Constitutional: + ill appearing, + morbidly obese and + altered mental status Eyes: PERRL, conjunctivae normal, anicteric sclerae ENMT: Mouth: + dry oral mucous membranes and + poor dentition Neck: normal visual inspection Respiratory: normal respiratory effort, lungs clear to auscultation Cardiovascular: Rate/Rhythm: regular rate and regular rhythm Extremities: + edema (1-2+ to shins) Gastrointestinal (Abdomen): Inspection/Auscultation: + abdomen distended Percussion/Palpation: + abdomen tender, + abdomen rigid and + ascites Musculoskeletal: Head/Neck/Chest: normocephalic Extremities: + extremities abnormal to inspection Skin: + turgor decreased and + lesion (surface lesion on R great toe, and LLQ of abdomen) Neurologic: normal touch/pain/proprioception, moves all extremities and + confused Motor/Sensory: + asterixis Cranial Nerves: normal hearing Psychiatric: Orientation: alert and oriented to person; + not oriented to place and + not oriented to time Insight: + limited insight Results & Data Laboratory Results 08/15/18 08/15/18 08/15/18 Range/Units 20:09 19:08 19:00 WBC (4.8-10.8) K/uL RBC (4.7-6.1) M/uL Hgb (14.0-18.0) g/dL POC Hgb 15.3 (14.0-18.0) g/dl Hct (42-52) % POC Hct 45 (42-52) % MCV (80-100) fL MCH (25-34) pg MCHC (32-36) g/dL RDW Std Deviation (36.4-46.3) fL RDW Coeff of Nora (11.5-14.5) % Plt Count (130-400) K/uL MPV (7.4-10.4) fL Immature Gran % (Auto) % Neut % (Auto) % Lymph % (Auto) % Talbot % (Auto) % Eos % (Auto) % Baso % (Auto) % Immature Gran # (Auto) (0.00-0.02) K/uL Neut # (Auto) (1.4-6.5) K/uL Lymph # (Auto) (1.2-3.4) K/uL Talbot # (Auto) (0.11-0.59) K/uL Eos # (Auto) (0-0.5) K/uL Baso # (Auto) (0-0.2) K/uL PT (9.0-12.0) Seconds INR (0.9-1.1) APTT (21.0-31.0) Seconds PTT Ratio POC Sodium 140 (135-144) mEq/L Sodium (136-145) mmol/L POC Potassium 4.8 (3.3-5.0) mEq/L Potassium (3.5-5.1) mmol/L POC Chloride 99 L (101-112) mEq/L Chloride (98-107) mmol/L Carbon Dioxide (21-32) mmol/L POC Total CO2 29 (24-31) mEq/l Anion Gap (3-11) POC Anion Gap 18.0 (16-25) mmol/L POC BUN 29 H (7-18) mg/dl BUN (7-18) mg/dl Creatinine (0.6-1.4) mg/dl POC Creatinine 2.0 H (0.6-1.3) mg/dl Est Cr Clr Drug Dosing Est GFR ( Amer) Est GFR (Non-Af Amer) BUN/Creatinine Ratio (10-20) Glucose (70-99) mg/dl POC Glucose (other) 195 H (70-99) mg/dl Lactate 2.4 H* (0.4-2.0) mmol/L Calcium (8.5-10.1) mg/dl POC Ioniz Calcium Eder 1.09 L (1.12-1.32) mmol/l Total Bilirubin (0.2-1) mg/dl AST (15-37) U/L ALT (12-78) U/L Alkaline Phosphatase (45-117) U/L Ammonia 37.1 H (11-32) umol/L Total Protein (6.4-8.2) gm/dl Albumin (3.4-5.0) gm/dl Globulin (2.5-4.0) gm/dl Albumin/Globulin Ratio (0.9-2) 08/15/18 08/15/18 08/15/18 Range/Units 18:00 18:00 18:00 WBC 12.21 H (4.8-10.8) K/uL RBC 4.36 L (4.7-6.1) M/uL Hgb 13.9 L (14.0-18.0) g/dL POC Hgb (14.0-18.0) g/dl Hct 42.6 (42-52) % POC Hct (42-52) % MCV 97.7 (80-100) fL MCH 31.9 (25-34) pg MCHC 32.6 (32-36) g/dL RDW Std Deviation 54.3 H (36.4-46.3) fL RDW Coeff of Nora 15.2 H (11.5-14.5) % Plt Count 366 (130-400) K/uL MPV 10.9 H (7.4-10.4) fL Immature Gran % (Auto) 0.8 % Neut % (Auto) 84.6 % Lymph % (Auto) 6.5 % Talbot % (Auto) 7.2 % Eos % (Auto) 0.7 % Baso % (Auto) 0.2 % Immature Gran # (Auto) 0.10 H (0.00-0.02) K/uL Neut # (Auto) 10.33 H (1.4-6.5) K/uL Lymph # (Auto) 0.79 L (1.2-3.4) K/uL Talbot # (Auto) 0.88 H (0.11-0.59) K/uL Eos # (Auto) 0.09 (0-0.5) K/uL Baso # (Auto) 0.02 (0-0.2) K/uL PT 15.0 H (9.0-12.0) Seconds INR 1.5 H (0.9-1.1) APTT 32.2 H (21.0-31.0) Seconds PTT Ratio 1.2 POC Sodium (135-144) mEq/L Sodium 137 (136-145) mmol/L POC Potassium (3.3-5.0) mEq/L Potassium 4.6 (3.5-5.1) mmol/L POC Chloride (101-112) mEq/L Chloride 102 (98-107) mmol/L Carbon Dioxide 31 (21-32) mmol/L POC Total CO2 (24-31) mEq/l Anion Gap 4.0 (3-11) POC Anion Gap (16-25) mmol/L POC BUN (7-18) mg/dl BUN 32 H (7-18) mg/dl Creatinine 2.21 H (0.6-1.4) mg/dl POC Creatinine (0.6-1.3) mg/dl Est Cr Clr Drug Dosing Not Reportable Est GFR ( Amer) 33.0 Est GFR (Non-Af Amer) 28.5 BUN/Creatinine Ratio 14.3 (10-20) Glucose 193 H (70-99) mg/dl POC Glucose (other) (70-99) mg/dl Lactate (0.4-2.0) mmol/L Calcium 8.8 (8.5-10.1) mg/dl POC Ioniz Calcium Eder (1.12-1.32) mmol/l Total Bilirubin 1.2 H (0.2-1) mg/dl AST 38 H (15-37) U/L ALT 23 (12-78) U/L Alkaline Phosphatase 66 (45-117) U/L Ammonia (11-32) umol/L Total Protein 7.1 (6.4-8.2) gm/dl Albumin 3.0 L (3.4-5.0) gm/dl Globulin 4.1 H (2.5-4.0) gm/dl Albumin/Globulin Ratio 0.7 L (0.9-2) Diagnostic Findings CT SCAN OF THE ABDOMEN AND PELVIS WITHOUT CONTRAST CLINICAL HISTORY: diffuse abd pain COMPARISON STUDY: 05/06/2016 TECHNIQUE: CT scan of the abdomen and pelvis was performed from the lung bases to the proximal femurs. Images are reviewed in the axial, sagittal, and coronal planes. IV contrast was not administered for this examination. A dose lowering technique was utilized adhering to the principles of ALARA. CT DOSE: 1853.53 mGy.cm FINDINGS: Lower chest: There are coronary artery calcifications. There is no focal pulmonary consolidation. There are mild dependent atelectatic changes. There are trace pleural effusions. Liver: The liver has a cirrhotic morphology. No focal masses are visualized on this noncontrast study. Gallbladder: Unremarkable. Spleen: There is an old splenic infarct. No other splenic abnormalities are evident. Pancreas: Unremarkable. Adrenal glands: Unremarkable. Kidneys: There are hyperdense pyramids versus faint renal calculi. There is no hydronephrosis. No ureteral calculi are visualized. Bowel: There are no transition zones indicate bowel obstruction. There is colonic diverticulosis. There are no findings to indicate acute appendicitis. There is mild bowel wall thickening involving the ascending colon. This a nonspecific finding which could be secondary to hepatocellular disease. There is possible gastric wall thickening versus a nondistended stomach. Peritoneum: There is a large volume of ascites. No free intraperitoneal air is visualized. Vasculature: The abdominal aorta is normal in course and caliber. Adenopathy: None. Pelvic viscera: The bladder, and pelvic viscera are unremarkable. Skeletal structures: No destructive osseous lesions are seen. IMPRESSION: 1. Cirrhotic morphology of the liver 2. Old splenic infarct 3. Large volume of ascites 4. No evidence of bowel obstruction. No evidence of free air 5. Gastric wall thickening/edema versus a nondistended stomach 6. Mild colonic wall thickening, a nonspecific finding which may be secondary to the patient's cirrhotic state Medications Administered Current Inpatient Medications Aspirin (Ecotrin Ectab) 81 mg PO DAILY [place] Stop: 09/15/18 08:59 Atorvastatin Calcium (Lipitor) 40 mg PO HS [place] Stop: 09/15/18 20:59 Furosemide (Lasix) 40 mg PO DAILY [place] Stop: 09/15/18 08:59 Gabapentin (Neurontin) 1,200 mg PO DAILY [place] Stop: 09/15/18 08:59 Gabapentin (Neurontin) 300 mg PO BID [place] Stop: 09/15/18 08:59 Gabapentin (Neurontin) 600 mg PO UD [place] Stop: 09/14/18 21:59 Insulin Human Isoph/Insulin Regular (Novolin 70/30 Regular) 120 units SQ QAM [place] Stop: 09/15/18 08:59 Insulin Human Isoph/Insulin Regular (Novolin 70/30 Regular) 90 units SQ QPM [place] Stop: 09/15/18 20:59 Miscellaneous Information (Consult) 1 ea N/A UD PRN PRN Reason: Consult Stop: 09/14/18 19:57 Miscellaneous Information (Consult) 1 ea N/A UD PRN PRN Reason: Consult Stop: 09/14/18 19:57 Multivitamins (Multivitamin Tab) 1 tab PO DAILY [place] Stop: 09/15/18 08:59 Nadolol (Corgard) 20 mg PO BID [place] Stop: 09/15/18 08:59 Non-Formulary Medication (Fenofibrate [Fenofibrate]) 160 mg PO DAILY [place] Stop: 09/15/18 08:59 Non-Formulary Medication (Ferrous Sulfate [Ferosul]) 325 mg PO BID [place] Stop: 09/15/18 08:59 Non-Formulary Medication (Hydromorphone [Dilaudid]) 2 - 4 mg PO Q4 PRN PRN Reason: Pain Non-Formulary Medication (Lactulose [Lactulose]) 15 ml PO DAILY PRN PRN Reason: Constipation Non-Formulary Medication (Naloxone [Narcan]) 1 ea INTNAS UD PRN PRN Reason: TAKE FOR DRUG OVERDOSE Pantoprazole Sodium (Protonix) 40 mg PO BID [place] Stop: 09/15/18 08:59 Rifaximin (Xifaxan) 550 mg PO BID [place] Stop: 09/15/18 08:59 Rivaroxaban (Xarelto) 15 mg PO DAILY [place] Stop: 09/15/18 08:59 Sertraline HCl (Zoloft) 25 mg PO HS [place] Stop: 09/15/18 20:59 Spironolactone (Aldactone) 50 mg PO DAILY [place] Stop: 09/15/18 08:59 Code Status & VTE Plan Code Status Full code per family VTE Prophylaxis Plan VTE Prophylaxis will be ordered: Yes Supervising Physician Co-Signing Physician Notes Attending addendum: I have physically seen this patient, have supervised the medical residents activities, and agree with the H&P unless as otherwise noted. Assessment and Plan: Intractable abdominal pain/nonalcoholic cirrhosis/esophageal varices grade 3/ progressive ascites/portal hypertension-- Ascitic fluid has returned more quickly this time. Ultrasound-guided paracentesis tomorrow. May benefit from having drain placed. Continue nadolol, rifaximin, spinal lactone and lactulose. Hold aspirin. MELD score 19. Consult gastroenterology. Remainder of orders and notations as noted. Resident Activity Tracking Resident Involvement: Resident Care Provided Care Provided: [facility] Medicine _ (1) Cirrhosis Ascites presence: unspecified Hepatic cirrhosis type: unspecified hepatic cirrhosis Qualified Code(s): K74.60 - Unspecified cirrhosis of liver (2) Altered mental status Altered mental status type: unspecified Coma depth: Coma timing: Qualified Code(s): R41.82 - Altered mental status, unspecified (3) Abdominal pain Abdominal location: generalized Qualified Code(s): R10.84 - Generalized abdominal pain
--- NOTE | 2018-08-15 23:22 | Emergency Department Note ---
Entered by Syl Worley acting as a scribe for Daniel Worthy DO History of Present Illness General Chief complaint: Abdominal Pain Stated complaint: ABDOMINAL PAIN Source: patient and family Mode of arrival: ambulatory Limitations: no limitations History of Present Illness Provider complaint: abdominal pain Onset (ago): day(s) (yesterday) Location: abdomen Pain Consistency: + other (persistent) Maximum Pain Intensity: 10 Current Pain Intensity: 7 Quality: + other (abdominal pain) Associated symptoms: + denies other symptoms (hematemesis) and + nausea/vomiting ; no fever/chills The patient is a 73 year old male who presents to the Emergency Room with complaints of a persistent abdominal pain that began yesterday. The patient reports that he has had a runny nose as well as episodes of vomiting but denies any fevers, coughs or hematemesis. The patient's at bedside reports that the patient has a history of cirrhosis and a stroke. Per son, the patient does not have a history of gastric varices. The patient denies any alcohol use. He reports that his last bowel movement was yesterday afternoon. He notes that he is currently taking blood thinners. Patient denies any other exacerbating or remitting factors. Home Medications Home Medications Medication Instructions Recorded Confirmed Type aspirin [Aspir-81] 81 mg PO DAILY 08/15/18 08/15/18 History atorvastatin 40 mg PO HS 08/15/18 08/15/18 History fenofibrate 160 mg PO DAILY 08/15/18 08/15/18 History ferrous sulfate [FeroSul] 325 mg PO BID 08/15/18 08/15/18 History furosemide [Lasix] 40 mg PO DAILY 08/15/18 08/15/18 History gabapentin 600 mg PO UD 08/15/18 08/15/18 History gabapentin [Neurontin] 1,200 mg PO DAILY 08/15/18 08/15/18 History gabapentin [Neurontin] 300 mg PO BID 08/15/18 08/15/18 History hydromorphone [Dilaudid] 2 - 4 mg PO Q4 PRN 08/15/18 08/15/18 History insulin NPH and regular human 90 unit SUBCUT QPM 08/15/18 08/15/18 History [Novolin 70/30 U-100 Insulin] insulin NPH and regular human 120 unit SUBCUT QAM 08/15/18 08/15/18 History [Novolin 70/30 U-100 Insulin] lactulose 15 ml PO DAILY PRN 08/15/18 08/15/18 History multivitamin 1 tab PO DAILY 08/15/18 08/15/18 History nadolol [Corgard] 20 mg PO BID 08/15/18 08/15/18 History naloxone [Narcan] 1 dose INTRANASAL UD PRN 08/15/18 08/15/18 History pantoprazole [Protonix] 40 mg PO BID 08/15/18 08/15/18 History rifaximin [Xifaxan] 550 mg PO BID 08/15/18 08/15/18 History rivaroxaban [Xarelto] 15 mg PO DAILY 08/15/18 08/15/18 History sertraline [Zoloft] 25 mg PO HS 08/15/18 08/15/18 History spironolactone [Aldactone] 50 mg PO DAILY 08/15/18 08/15/18 History Allergies Allergy/AdvReac Type Severity Reaction Status Date / Time No Known Allergies Allergy Unverified 08/15/18 19:47 Past Med/Surg History Medical History Cirrhosis (Chronic) Atrial fibrillation (Chronic) Diabetes (Chronic) Hypertension (Chronic) Social History marital status: Current Living Situation: Spouse current occupational status: retired Feels Safe at Home: Yes Smoking Status: Former smoker Hx Alcohol Use: No Beliefs That Will Affect Care: None Preferred Language: Hungarian Review of Systems See HPI for pertinent positives & negatives. and A total of 10 systems reviewed and were otherwise negative Physical Exam Vital Signs Vital Signs - 24 hr 08/15/18 18:03 08/15/18 18:40 08/15/18 18:59 Temperature 36.3 C L Temperature Source Oral Sepsis Recent Fever Within 48 Hours No Sepsis New/Unexplained Change in Mental Status No Sepsis Action Taken by Nursing No Action Required Pulse Rate 97 H 84 102 H Pulse Rate [Apical] 108 H Pulse Rate from SpO2 Sensor 104 H 103 H Pulse Rhythm Regular Pulse Strength Normal Respiratory Rate 20 21 23 Respiratory Effort / Characteristics Non-Labored Spontaneous Respiratory Depth Normal Respiratory Pattern Regular Blood Pressure 113/77 110/81 Blood Pressure [Left Arm] 110/81 Blood Pressure Mean 89 90 Blood Pressure Mean [Left Arm] 90 Blood Pressure Position Sitting Pulse Oximetry 98 97 93 Oxygen Delivery Method Room Air Room Air 08/15/18 19:00 08/15/18 19:01 08/15/18 19:28 Temperature Temperature Source Sepsis Recent Fever Within 48 Hours Sepsis New/Unexplained Change in Mental Status Sepsis Action Taken by Nursing Pulse Rate 111 H Pulse Rate [Apical] 101 H Pulse Rate from SpO2 Sensor 101 H Pulse Rhythm Pulse Strength Respiratory Rate 23 24 Respiratory Effort / Characteristics Respiratory Depth Respiratory Pattern Blood Pressure Blood Pressure [Left Arm] 119/82 Blood Pressure Mean Blood Pressure Mean [Left Arm] 94 Blood Pressure Position Pulse Oximetry 93 92 97 Oxygen Delivery Method Room Air Room Air 08/15/18 19:29 08/15/18 19:47 08/15/18 20:00 Temperature Temperature Source Sepsis Recent Fever Within 48 Hours Sepsis New/Unexplained Change in Mental Status Sepsis Action Taken by Nursing Pulse Rate Pulse Rate [Apical] Pulse Rate from SpO2 Sensor 106 H 104 H Pulse Rhythm Pulse Strength Respiratory Rate Respiratory Effort / Characteristics Respiratory Depth Respiratory Pattern Blood Pressure 119/82 Blood Pressure [Left Arm] Blood Pressure Mean 94 Blood Pressure Mean [Left Arm] Blood Pressure Position Pulse Oximetry 96 92 Oxygen Delivery Method 08/15/18 20:30 08/15/18 20:34 08/15/18 21:00 Temperature Temperature Source Sepsis Recent Fever Within 48 Hours Sepsis New/Unexplained Change in Mental Status Sepsis Action Taken by Nursing Pulse Rate 115 H Pulse Rate [Apical] 104 H Pulse Rate from SpO2 Sensor 115 H 101 H 107 H Pulse Rhythm Pulse Strength Respiratory Rate 19 16 Respiratory Effort / Characteristics Respiratory Depth Respiratory Pattern Blood Pressure 115/63 102/68 Blood Pressure [Left Arm] 115/63 Blood Pressure Mean 80 79 Blood Pressure Mean [Left Arm] 80 Blood Pressure Position Pulse Oximetry 95 94 93 Oxygen Delivery Method Room Air 08/15/18 21:30 08/15/18 22:00 Temperature Temperature Source Sepsis Recent Fever Within 48 Hours Sepsis New/Unexplained Change in Mental Status Sepsis Action Taken by Nursing Pulse Rate Pulse Rate [Apical] Pulse Rate from SpO2 Sensor 107 H 105 H Pulse Rhythm Pulse Strength Respiratory Rate 23 Respiratory Effort / Characteristics Respiratory Depth Respiratory Pattern Blood Pressure 90/64 L 105/68 Blood Pressure [Left Arm] Blood Pressure Mean 72 80 Blood Pressure Mean [Left Arm] Blood Pressure Position Pulse Oximetry 94 94 Oxygen Delivery Method GENERAL: Sitting up in bed, disheveled, uncomfortable appearing, holding abdomen. EYE EXAM: normal conjunctiva. OROPHARYNX: no exudate, no erythema, lips, buccal mucosa, and tongue normal and mucous membranes are moist NECK: supple, no nuchal rigidity, no adenopathy, non-tender LUNGS: Clear to auscultation. Normal chest wall mechanics HEART: no murmurs, S1 normal and S2 normal. Tachycardic. ABDOMEN: abdomen distended and diffusely tender, normo-active bowel, sounds, no masses, no rebound or guarding. BACK: Back is symmetrical on inspection and there is no deformity, no midline tenderness, no CVA tenderness. SKIN: no rashes and no bruising. Small laceration in abdomen. UPPER EXTREMITIES: upper extremities are grossly normal. LOWER EXTREMITIES: No pitting edema. NEURO EXAM: Not oriented to month or year, cranial nerves II-XII grossly intact , normal speech, no gross weakness of arms, no gross weakness of legs. Course ED COURSE: Vital signs were reviewed and the patient is tachycardic. The patients medical record was reviewed The above diagnostic studies were performed and reviewed. ED treatments and interventions as stated above. 1808: The patient was evaluated in room B11B. A complete history and physical examination was performed. 2024: Upon reevaluation, the patient appeared to have improvement of his symptoms.. I discussed my findings with the patient and he understands and agrees with the treatment plan. Based on the patients age, coexisting illnesses, exam and lab findings the decision to treat as an inpatient was made. The patient remained stable while under my care. The patient will be evaluated for further management. Administered Medications Discontinued Medications Hydromorphone HCl (Dilaudid) 1 mg IV NOW STA Stop: 08/15/18 18:16 Last Admin: 08/15/18 19:45 Dose: 1 mg Hydromorphone HCl (Dilaudid) 1 mg IV NOW STA Stop: 08/15/18 21:58 Last Admin: 08/15/18 22:16 Dose: 1 mg Vancomycin HCl 2,250 mg/ (Sodium Chloride) 545 mls @ 200 mls/hr IV NOW ONE Stop: 08/15/18 22:41 Last Admin: 08/15/18 21:18 Dose: 200 mls/hr Piperacillin Sod/Tazobactam Sod (Zosyn) 4.5 gm in 120 mls @ 240 mls/hr IV NOW ONE Stop: 08/15/18 20:27 Last Infusion: 08/15/18 21:05 Dose: 0 mls/hr Admin: 08/15/18 20:33 Dose: 240 mls/hr Medical Decision Making Differential Diagnosis Differential diagnosis includes: gastritis, peptic ulcer disease, GERD, gallbladder disease, pancreatitis, small bowel obstruction, acute coronary syndrome, pericarditis, ischemic bowel, irritable bowel disease, irritable bowel syndrome, appendicitis, diverticulitis, malignancy, hernia, UTI, torsion, perforation, trauma, and kidney stones. Medical Records Attestation: I reviewed the patient's medical records. Home Medications Current Medication List: was personally reviewed by me Laboratory Data Attestation: I reviewed the patient's lab results. Result diagrams: 08/15/18 18:00 08/15/18 18:00 Lab Results 08/15/18 08/15/18 08/15/18 Range/Units 18:00 18:00 18:00 WBC 12.21 H (4.8-10.8) K/uL RBC 4.36 L (4.7-6.1) M/uL Hgb 13.9 L (14.0-18.0) g/dL POC Hgb (14.0-18.0) g/dl Hct 42.6 (42-52) % POC Hct (42-52) % MCV 97.7 (80-100) fL MCH 31.9 (25-34) pg MCHC 32.6 (32-36) g/dL RDW Std Deviation 54.3 H (36.4-46.3) fL RDW Coeff of Nora 15.2 H (11.5-14.5) % Plt Count 366 (130-400) K/uL MPV 10.9 H (7.4-10.4) fL Immature Gran % (Auto) 0.8 % Neut % (Auto) 84.6 % Lymph % (Auto) 6.5 % Randolph % (Auto) 7.2 % Eos % (Auto) 0.7 % Baso % (Auto) 0.2 % Immature Gran # (Auto) 0.10 H (0.00-0.02) K/uL Neut # (Auto) 10.33 H (1.4-6.5) K/uL Lymph # (Auto) 0.79 L (1.2-3.4) K/uL Randolph # (Auto) 0.88 H (0.11-0.59) K/uL Eos # (Auto) 0.09 (0-0.5) K/uL Baso # (Auto) 0.02 (0-0.2) K/uL PT 15.0 H (9.0-12.0) Seconds INR 1.5 H (0.9-1.1) APTT 32.2 H (21.0-31.0) Seconds PTT Ratio 1.2 POC Sodium (135-144) mEq/L Sodium 137 (136-145) mmol/L POC Potassium (3.3-5.0) mEq/L Potassium 4.6 (3.5-5.1) mmol/L POC Chloride (101-112) mEq/L Chloride 102 (98-107) mmol/L Carbon Dioxide 31 (21-32) mmol/L POC Total CO2 (24-31) mEq/l Anion Gap 4.0 (3-11) POC Anion Gap (16-25) mmol/L POC BUN (7-18) mg/dl BUN 32 H (7-18) mg/dl Creatinine 2.21 H (0.6-1.4) mg/dl POC Creatinine (0.6-1.3) mg/dl Est Cr Clr Drug Dosing Not Reportable Est GFR ( Amer) 33.0 Est GFR (Non-Af Amer) 28.5 BUN/Creatinine Ratio 14.3 (10-20) Glucose 193 H (70-99) mg/dl POC Glucose (other) (70-99) mg/dl Lactate (0.4-2.0) mmol/L Calcium 8.8 (8.5-10.1) mg/dl POC Ioniz Calcium Eder (1.12-1.32) mmol/l Total Bilirubin 1.2 H (0.2-1) mg/dl AST 38 H (15-37) U/L ALT 23 (12-78) U/L Alkaline Phosphatase 66 (45-117) U/L Ammonia (11-32) umol/L Total Protein 7.1 (6.4-8.2) gm/dl Albumin 3.0 L (3.4-5.0) gm/dl Globulin 4.1 H (2.5-4.0) gm/dl Albumin/Globulin Ratio 0.7 L (0.9-2) 08/15/18 08/15/18 08/15/18 Range/Units 19:00 19:08 20:09 WBC (4.8-10.8) K/uL RBC (4.7-6.1) M/uL Hgb (14.0-18.0) g/dL POC Hgb 15.3 (14.0-18.0) g/dl Hct (42-52) % POC Hct 45 (42-52) % MCV (80-100) fL MCH (25-34) pg MCHC (32-36) g/dL RDW Std Deviation (36.4-46.3) fL RDW Coeff of Nora (11.5-14.5) % Plt Count (130-400) K/uL MPV (7.4-10.4) fL Immature Gran % (Auto) % Neut % (Auto) % Lymph % (Auto) % Randolph % (Auto) % Eos % (Auto) % Baso % (Auto) % Immature Gran # (Auto) (0.00-0.02) K/uL Neut # (Auto) (1.4-6.5) K/uL Lymph # (Auto) (1.2-3.4) K/uL Randolph # (Auto) (0.11-0.59) K/uL Eos # (Auto) (0-0.5) K/uL Baso # (Auto) (0-0.2) K/uL PT (9.0-12.0) Seconds INR (0.9-1.1) APTT (21.0-31.0) Seconds PTT Ratio POC Sodium 140 (135-144) mEq/L Sodium (136-145) mmol/L POC Potassium 4.8 (3.3-5.0) mEq/L Potassium (3.5-5.1) mmol/L POC Chloride 99 L (101-112) mEq/L Chloride (98-107) mmol/L Carbon Dioxide (21-32) mmol/L POC Total CO2 29 (24-31) mEq/l Anion Gap (3-11) POC Anion Gap 18.0 (16-25) mmol/L POC BUN 29 H (7-18) mg/dl BUN (7-18) mg/dl Creatinine (0.6-1.4) mg/dl POC Creatinine 2.0 H (0.6-1.3) mg/dl Est Cr Clr Drug Dosing Est GFR ( Amer) Est GFR (Non-Af Amer) BUN/Creatinine Ratio (10-20) Glucose (70-99) mg/dl POC Glucose (other) 195 H (70-99) mg/dl Lactate 2.4 H* (0.4-2.0) mmol/L Calcium (8.5-10.1) mg/dl POC Ioniz Calcium Eder 1.09 L (1.12-1.32) mmol/l Total Bilirubin (0.2-1) mg/dl AST (15-37) U/L ALT (12-78) U/L Alkaline Phosphatase (45-117) U/L Ammonia 37.1 H (11-32) umol/L Total Protein (6.4-8.2) gm/dl Albumin (3.4-5.0) gm/dl Globulin (2.5-4.0) gm/dl Albumin/Globulin Ratio (0.9-2) Imaging Data Radiologist's Impression: Radiology results as stated below per my review and the radiologist's interpretation: XR chest 1V portable CLINICAL HISTORY: Sepsis COMPARISON STUDY: 01/18/2018 FINDINGS: The heart is borderline enlarged. There is no failure. There is no focal pulmonary consolidation. There are no pleural effusions. There is mild elevation/eventration right hemidiaphragm.[ IMPRESSION: No active disease in the chest. Electronically signed by: Nik Campos M.D. 08/15/2018 6:[address] SCAN OF THE ABDOMEN AND PELVIS WITHOUT CONTRAST CLINICAL HISTORY: diffuse abd pain COMPARISON STUDY: 05/06/2016 TECHNIQUE: CT scan of the abdomen and pelvis was performed from the lung bases to the proximal femurs. Images are reviewed in the axial, sagittal, and coronal planes. IV contrast was not administered for this examination. A dose lowering technique was utilized adhering to the principles of ALARA. CT DOSE: 1853.53 mGy.cm FINDINGS: Lower chest: There are coronary artery calcifications. There is no focal pulmonary consolidation. There are mild dependent atelectatic changes. There are trace pleural effusions. Liver: The liver has a cirrhotic morphology. No focal masses are visualized on this noncontrast study. Gallbladder: Unremarkable. Spleen: There is an old splenic infarct. No other splenic abnormalities are evident. Pancreas: Unremarkable. Adrenal glands: Unremarkable. Kidneys: There are hyperdense pyramids versus faint renal calculi. There is no hydronephrosis. No ureteral calculi are visualized. Bowel: There are no transition zones indicate bowel obstruction. There is colonic diverticulosis. There are no findings to indicate acute appendicitis. There is mild bowel wall thickening involving the ascending colon. This a nonspecific finding which could be secondary to hepatocellular disease. There is possible gastric wall thickening versus a nondistended stomach. Peritoneum: There is a large volume of ascites. No free intraperitoneal air is visualized. Vasculature: The abdominal aorta is normal in course and caliber. Adenopathy: None. Pelvic viscera: The bladder, and pelvic viscera are unremarkable. Skeletal structures: No destructive osseous lesions are seen. IMPRESSION: 1. Cirrhotic morphology of the liver 2. Old splenic infarct 3. Large volume of ascites 4. No evidence of bowel obstruction. No evidence of free air 5. Gastric wall thickening/edema versus a nondistended stomach 6. Mild colonic wall thickening, a nonspecific finding which may be secondary to the patient's cirrhotic state Electronically signed by: Nik Campos M.D. 08/15/2018 7:49 PM ECG Data Attestation: I personally reviewed and interpreted this ECG as follows: Indication: tachycardia Rate (beats per minute): 102 Rhythm: atrial fibrillation (with RVR) Findings: + other (normal axis) and + Q waves (lateral) Blood Pressure Blood Pressure Findings: Normal blood pressure Blood Pressure Disposition: further management by hospitalist RONALDO Narrative Patient is a 73-year-old male who presents the ER for abdominal pain which started yesterday associated with vomiting. Patient is confused and family notes he is more confused than usual. Upon presentation he was found to be tachycardic. Labs were remarkable for a leukocytosis of 12,000. INR was at 1.5 as he is on a 10 a inhibitor. BMP was unremarkable. Creatinine was slightly elevated at 2.2 up of a baseline of 2. Lactate was elevated as well at 2.4. T bili slightly elevated at 1.2. No significant transaminitis. CT abdomen pelvis was fairly unremarkable. Patient was covered with broad- spectrum antibiotics for possible SBP. Did not want to tap at this time with the elevated INR. Did cover with broad-spectrum antibiotics. Updated at bedside. Discussed with the hospitalist patient will be observed overnight. Impression & Plan Abdominal pain, Cirrhosis, Elevated lactic acid level, Altered mental status Discharge Plan Visit Data Chief Complaint: Abdominal Pain Stated Complaint: ABDOMINAL PAIN ED Provider: Daniel Worthy Discharge Problem: Abdominal pain, Cirrhosis, Elevated lactic acid level, Altered mental status Patient Disposition: Being Evaluated by Hospitalist Forms Stand Alone Forms: Call Back Authorization, [facility] Prescriptions Prescriptions: No Action atorvastatin 40 mg tablet 40 mg PO HS RF: 0 aspirin [Aspir-81] 81 mg Tablet,Delayed Release (Dr/Ec) 81 mg PO DAILY RF: 0 ferrous sulfate [FeroSul] 325 mg (65 mg iron) Tablet 325 mg PO BID RF: 0 furosemide [Lasix] 20 mg tablet 40 mg PO DAILY RF: 0 fenofibrate 160 mg tablet 160 mg PO DAILY RF: 0 gabapentin [Neurontin] 300 mg capsule 1,200 mg PO DAILY RF: 0 gabapentin [Neurontin] 300 mg capsule 300 mg PO BID RF: 0 multivitamin Tablet 1 tab PO DAILY RF: 0 gabapentin 600 mg Tablet 600 mg PO UD RF: 0 insulin NPH and regular human [Novolin 70/30 U-100 Insulin] 100 unit/mL (70-30 ) suspension 120 unit subcut QAM RF: 0 insulin NPH and regular human [Novolin 70/30 U-100 Insulin] 100 unit/mL (70-30 ) suspension 90 unit subcut QPM RF: 0 nadolol [Corgard] 20 mg tablet 20 mg PO BID RF: 0 pantoprazole [Protonix] 40 mg tablet,delayed release (DR/EC) 40 mg PO BID RF: 0 hydromorphone [Dilaudid] 4 mg tablet 2 - 4 mg PO Q4 PRN (Reason: Pain) RF: 0 sertraline [Zoloft] 50 mg tablet 25 mg PO HS RF: 0 spironolactone [Aldactone] 50 mg tablet 50 mg PO DAILY RF: 0 lactulose 10 gram/15 mL Solution 15 ml PO DAILY PRN (Reason: Constipation) RF: 0 rifaximin [Xifaxan] 550 mg Tablet 550 mg PO BID RF: 0 rivaroxaban [Xarelto] 15 mg tablet 15 mg PO DAILY RF: 0 naloxone [Narcan] 4 mg/actuation [place],Non-Aerosol 1 dose Intranasal UD PRN (Reason: TAKE FOR DRUG OVERDOSE) RF: 0 Referrals Referrals: Rocio Damico MD [Primary Care Provider] - The scribe's documentation has been prepared under my direction and personally reviewed by me in its entirety. I confirm that the note above accurately reflects all work, treatment, procedures, and medical decision making performed by me.
[2018-08-15] MEDS ORDERED: ALUMINUM/MAGNESIUM SUSP 30 ML UDC PO PRN (23:45)
[2018-08-15] MEDS ORDERED: MAGNESIUM HYDROXIDE SUSP 30 ML UDC PO PRN (23:45)
[2018-08-15] MEDS ORDERED: HYDROmorphone INJ 1 MG/ML SYRINGE IV PRN (23:45)
[2018-08-15] MEDS ORDERED: DiphenhydrAMINE HCL 50 MG/ML VIAL IV PRN (23:45)
[2018-08-15] MEDS ORDERED: POLYETHYLENE (MIRALAX) 17 GM PACK PO PRN (23:45)
[2018-08-16] MEDS ORDERED: ALBUMIN 25% 50 ML with FUROSEMIDE 40 MG IV ONE (00:49)
[2018-08-16 06:50] LABS: Basophils # (auto) 0.01 K/uL (0-0.2); Basophils % (auto) 0.1 %; Eosinophils # (auto) 0.02 K/uL (0-0.5); Eosinophils % (auto) 0.2 %; Hematocrit (blood only) 38.9 % (42-52); Hemoglobin 12.3 g/dL (14.0-18.0); Immature Granulocytes # (auto) 0.07 K/uL (0.00-0.02); Immature Granulocytes % (auto) 0.8 %; Lymphocytes # (auto) 1.06 K/uL (1.2-3.4); Mean Corpuscular Hgb Conc 31.6 g/dL (32-36); Mean Corpuscular Volume 98.5 fL (80-100); Mean Platelet Volume 10.6 fL (7.4-10.4); Monocytes # (auto) 1.33 K/uL (0.11-0.59); Monocytes % (auto) 15.1 %; Neutrophils # (auto) 6.32 K/uL (1.4-6.5); Neutrophils % (auto) 71.8 %; Platelet Count 285 K/uL (130-400); RDW Coefficient of Variation 15.4 % (11.5-14.5); RDW Standard Deviation 55.7 fL (36.4-46.3); Red Blood Count 3.95 M/uL (4.7-6.1); White Blood Count 8.81 K/uL (4.8-10.8)
[2018-08-16 06:59] LABS: Estimated Average Glucose 148 mg/dl
[2018-08-16 07:29] LABS: Albumin Level 2.9 gm/dl (3.4-5.0); BUN Creatinine Ratio 14.9 (10-20); Calcium 8.5 mg/dl (8.5-10.1); Creatinine Clr Calc Pharmacy 35.5 ml/min; Est GFR (African American) 31.1; Est GFR (Non-African American) 26.9; Potassium 4.2 mmol/L (3.5-5.1)
[2018-08-16 07:30] LABS: Albumin Globulin Ratio 0.7 (0.9-2); Bilirubin,Total 1.6 mg/dl (0.2-1); Globulin 3.9 gm/dl (2.5-4.0); Total Protein 6.8 gm/dl (6.4-8.2)
[2018-08-16] MEDS ORDERED: RIVAROXABAN 15 MG TAB PO SCH (09:00)
[2018-08-16] MEDS ORDERED: ASPIRIN 81 MG ECTAB PO SCH (09:00)
[2018-08-16] MEDS ORDERED: MULTIVITAMIN TAB PO SCH (09:00)
[2018-08-16] MEDS ORDERED: FUROSEMIDE 20 MG TAB PO SCH ×2 (09:00)
[2018-08-16] MEDS: INSULIN HUMAN 70% NPH/30% REGULAR SQ SCH (09:38)
[2018-08-16] MEDS: GABAPENTIN~ORDER AWAITING ACTION SCH ×2 (09:39→16:22)
[2018-08-16] MEDS: FENOFIBRATE~ORDER AWAITING ACTION SCH ×2 (09:39→16:22)
[2018-08-16] MEDS: NADOLOL 40 MG TAB PO SCH ×2 (09:46→20:51)
[2018-08-16] MEDS: PANTOprazole 40 MG TAB PO SCH ×2 (09:46→20:51)
[2018-08-16] MEDS: RIFAXIMIN 550 MG TABLET PO SCH ×2 (09:46→20:50)
[2018-08-16] MEDS: FERROUS SULFATE 325 MG TAB PO SCH ×2 (09:46→20:50)
[2018-08-16] MEDS: SPIRONOLACTONE 25 MG TAB PO SCH (09:47)
[2018-08-16] MEDS: GABAPENTIN 300 MG CAP PO SCH ×3 (09:47→20:51)
[2018-08-16 10:20] LABS: INR 1.6 (0.9-1.1); Prothrombin Time 15.6 Seconds (9.0-12.0)
[2018-08-16] MEDS ORDERED: Nursing to Pharmacy Communication ONE (10:47)
--- NOTE | 2018-08-16 12:24 | Ultrasound Report ---
ULTRASOUND-GUIDED DIAGNOSTIC AND THERAPEUTIC PARACENTESIS: HISTORY: Ascites. Generalized Abdominal pain. Procedure: The procedure and its risks, benefits and alternatives were discussed with the patient and written informed consent was obtained. Preliminary ultrasound of the abdomen was performed to determ ine a safe needle entry site. The right lower quadrant was prepped and draped in the usual sterile fashion. 1% Lidocaine was used f or local anesthesia. A paracentesis needle-sheath was inserted into the peritoneal space using ultras ound guidance. The needle was removed and the sheath was connected to tubing and a vacuum suction dev ice. A total of 8.8 liters of yellow ascites was aspirated. The sheath was removed and a sterile dres sing applied. The patient tolerated the procedure well and there were no immediate complications. IMPRESSION: Ultrasound-guided therapeutic and diagnostic paracentesis with aspiration of 8.8 liters of ascites. Electronically signed by: Gilson Soto M.D. 08/16/2018 12:23 PM
[2018-08-16 13:05] LABS: Mononuclear WBC Peritoneal 25.7 %; Polynuclear WBC Peritoneal 74.3 %; RBC Peritoneal Fluid (A) < 3000 /uL; WBC Peritoneal Fluid (A) 4020 /ul (0-300)
[2018-08-16] MEDS ORDERED: CEFOTAXIME SOD IV SCH (13:45)
[2018-08-16] MEDS ORDERED: DEXTROSE 5% IV SCH (13:45)
[2018-08-16 15:03] LABS: Appearance Urine Clear (Clear); Bilirubin Urine Negative (Negative); Color Urine Dark Yellow; Glucose Urine UA Negative (Negative); Ketones Urine Negative (Negative); Leukocyte Esterase Urine Negative (Negative); Nitrite Urine Negative (Negative); Protein Urine Negative (Negative); Specific Gravity Urine 1.019 (1.000-1.030); Urobilinogen Urine Negative (Negative)
--- NOTE | 2018-08-16 15:12 | Gastrointestinal Consultation ---
Date of Consultation August 16, 2018 Assessment & Plan (1) Altered mental status: Change in MS likely from SBP. Ammonia level only 37 SBP continue abx, Will need daily prophylaxis once this episode resolved HSE--continue xifaxan and lactulose--follow ammonia elev lactic acid--likely from SBP--repeat today ascites----2 gm Na diet, diuretics depending on renal function gastric thickening vs underdistension--no workup planned portal HTN with varices---continue Corgard colon thickening possibly from liver disease--no workup planned History of Present Illness Reason for Consultation: ascites Attending Physician: Daniel Zayas, History of Present Illness CC history from nursing staff and chart. Pt confused HPI Reviewed [facility] EMR and found Dr Fernando GARG from 06/14/18 Pt has cirrhosis from AREVALO, ascites, HSE on xifaxan, grade 3 varices on nadalol, ascties on aldactone and lasix, renal insufficiency. . His last paracentesis was 07/17/18 8.5 liters. Apparently patient complained of abd pain and was confused and his brought him to ER. 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 He had paracentesis today of 8 liters and had 2900 segs c/w SBP and his abx were changed by DR Rodriguez. He had mildly elevated lactic acid on admit and elevated WBC. WBC toaday normal. Pt denies abd pain. Per nursing no stools nor n/v today. Allergies Allergy/AdvReac Type Severity Reaction Status Date / Time No Known Allergies Allergy Unverified 08/15/18 19:47 Home Medications Home Medications Medication Instructions Recorded Confirmed Type aspirin [Aspir-81] 81 mg PO DAILY 08/15/18 08/15/18 History atorvastatin 40 mg PO HS 08/15/18 08/15/18 History fenofibrate 160 mg PO DAILY 08/15/18 08/15/18 History ferrous sulfate [FeroSul] 325 mg PO BID 08/15/18 08/15/18 History furosemide [Lasix] 40 mg PO DAILY 08/15/18 08/15/18 History gabapentin 600 mg PO UD 08/15/18 08/15/18 History gabapentin [Neurontin] 1,200 mg PO DAILY 08/15/18 08/15/18 History gabapentin [Neurontin] 300 mg PO BID 08/15/18 08/15/18 History hydromorphone [Dilaudid] 2 - 4 mg PO Q4 PRN 08/15/18 08/15/18 History insulin NPH and regular human 90 unit SUBCUT QPM 08/15/18 08/15/18 History [Novolin 70/30 U-100 Insulin] insulin NPH and regular human 120 unit SUBCUT QAM 08/15/18 08/15/18 History [Novolin 70/30 U-100 Insulin] lactulose 15 ml PO DAILY PRN 08/15/18 08/15/18 History multivitamin 1 tab PO DAILY 08/15/18 08/15/18 History nadolol [Corgard] 20 mg PO BID 08/15/18 08/15/18 History naloxone [Narcan] 1 dose INTRANASAL UD PRN 08/15/18 08/15/18 History pantoprazole [Protonix] 40 mg PO BID 08/15/18 08/15/18 History rifaximin [Xifaxan] 550 mg PO BID 08/15/18 08/15/18 History rivaroxaban [Xarelto] 15 mg PO DAILY 08/15/18 08/15/18 History sertraline [Zoloft] 25 mg PO HS 08/15/18 08/15/18 History spironolactone [Aldactone] 50 mg PO DAILY 08/15/18 08/15/18 History Patient History Medical History Cirrhosis (Chronic) Atrial fibrillation (Chronic) Diabetes (Chronic) Hypertension (Chronic) Social History marital status: Current Living Situation: Spouse current occupational status: retired Other Information That Helps Us Care for You: No Feels Safe at Home: Yes Safety Concerns: Feels Safe At This Time Smoking Status: Former smoker Do You Dip or Chew Tobacco: No Second Hand Exposure: No Tobacco Cessation Education Requested by Patient: No Hx Alcohol Use: No Hx Substance Use: No Beliefs That Will Affect Care: None Communication Ability: Effective Review of Systems unobtainable from patient secondary to confusion. Physical Exam 2 Vital Signs (Past 24 Hours): Last Vital Signs Temp 36.7 C 08/16/18 07:12 Pulse 86 08/16/18 07:12 Resp 18 08/16/18 07:12 BP 126/86 08/16/18 07:12 Pulse Ox 95 08/16/18 07:12 Constitutional: WD/WN, vitals as above Eyes: PERRL, conjunctivae normal, anicteric sclerae ENMT: external ear and nose normal, oropharynx normal Respiratory: normal respiratory effort, lungs clear to auscultation Cardiovascular: RRR, no murmur, no edema Gastrointestinal (Abdomen): normal bowel sounds, soft, nontender, no hepatosplenomegaly Neurologic: PERRL, EOMI, accommodation nl, no face palsy, no dysarthria Psychiatric: confused but alert. _ (1) Altered mental status Altered mental status type: unspecified Coma depth: Coma timing: Qualified Code(s): R41.82 - Altered mental status, unspecified
[2018-08-16] MEDS ORDERED: INSULIN HUMAN 70% NPH/30% REGULAR SQ SCH (16:30)
[2018-08-16] MEDS: cefTRIAXone SODIUM 2,000 MG in DEXTROSE 5% 50 ML IV SCH (16:45)
[2018-08-16] MEDS: ONDANSETRON INJ 2 MG/ML 2 ML VIAL IV PRN (16:57)
--- NOTE | 2018-08-16 17:33 | Family Medicine Progress Note ---
Date of Service August 16, 2018 Assessment & Plan (1) Abdominal pain: 73 y/o M with PMH lliver cirrhosis (h/o AREVALO, esophageal varices), HLD, HTN, IDDM, A fib, and Dementia presents with acute abd pain and AMS, per . 1) Abdominal pain/Ascites/Encephalopathy likely 2/2 SBP -Ammonia level 37, 18 on repeat, unlikely to contribute to AMS -Lactic acid 2.4, repeat 2.1 likely 2/2 SBP -GI- 08/16 u/s guided therapeutic and diagnostic paracentesis with aspiration of 8.8 liters of ascites -cont IV rocephin -Dilaudid for pain -Continue rifaximin, spironolactone, lactulose -MELD score of 21 -->19.6% 3 month mortality risk. Will have discussion with family moving forward regarding prognosis. 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 Today 2.32. Will cont monitor 3) IDDM -Poorly controlled --Nephropathy, neuropathy -Continue gabapentin -Wound care- pending -AMAURI testing in December 2017: LLE 0.7, RLE 1.2 -Continue home insulin regimen of 70/10 120AM/90PM. Will consider ISS if not controlled -Hb A1c -6.8 4) HTN/ Portal HTN w/ varices -Will cont nadolol 5) HLD -cont. fenofibrate, atorvastatin 6) A-fib -cont xarelto 15 mg qAM 7) Depression -Cont home sertraline 25 HS 8) Anemia -Cont ferrous sulfate FULL DVT Prophylaxis: SCDs, Xarelto Dispo: med/surg, ongoing SBP tx Supervising Physician Co-Signing Physician Notes I personally examined the patient and verified all bird points of history and exam, discussed case, and agree with decision making with Dr Rome. More awake and alert, he still seems to be quite disoriented. He vaguely knows he is in hospital and notes [place], then notes [place]. He notes the year is 1119. However he notes that he feels fine and his belly feels better and he would like to go home. No family is present Vitals noted, in general he is awake and alert although disoriented. No distress. HEENT normocephalic atraumatic mucous membranes are moist. Breathing is unlabored no accessory muscle use good effort. Abdomen is soft nondistended it is fairly tender without guarding rebound or rigidity but diffusely tender. Skin shows no rashes, pallor, icterus. Neuro shows no focal deficits Abdominal pain/altered mental statusappears to be most consistent with SBP. Continue cephalosporin antibiotic, supportive care. Await cultures. Weakness and confusionwe will need to get a better feel from the family of what his baseline is. For now PT/OT eval and treat, and then will need to work with the family on home versus if he needs higher level of care. DVT prophylaxisXarelto Otherwise as above Subjective 73 y/o M found this AM in bed in NAD. Pt has h/o dementia so subjective history is somewhat limited. Pt states he would like to go home today. Pt tolerating PO intake post paracentesis. No issues voiding. Complaints of ongoing abd pain/ tenderness. Pt has no other acute concerns or complaints. Review of Systems All systems reviewed & are unremarkable except as noted in HPI & below Physical Exam 2 Vital Signs (Past 24 Hours): Last Vital Signs Temp 36.6 C 08/16/18 15:00 Pulse 77 08/16/18 15:00 Resp 18 08/16/18 15:00 BP 95/64 L 08/16/18 15:00 Pulse Ox 97 08/16/18 15:00 Constitutional: WD/WN, vitals as above + obese and + altered mental status Eyes: PERRL, conjunctivae normal, anicteric sclerae ENMT: external ear and nose normal, oropharynx normal Respiratory: normal respiratory effort, lungs clear to auscultation Cardiovascular: RRR, no murmur, no edema Gastrointestinal (Abdomen): Diffusely tender abd Skin: no rashes, warm and dry Psychiatric: A&Ox2 Results & Data Laboratory Results Laboratory Results - last 24 hr 08/15/18 08/15/18 08/15/18 18:00 18:00 18:00 WBC 12.21 H RBC 4.36 L Hgb 13.9 L POC Hgb Hct 42.6 POC Hct MCV 97.7 MCH 31.9 MCHC 32.6 RDW Std Deviation 54.3 H RDW Coeff of [place] 15.2 H Plt Count 366 MPV 10.9 H Immature Gran % (Auto) 0.8 Neut % (Auto) 84.6 Lymph % (Auto) 6.5 [place] % (Auto) 7.2 Eos % (Auto) 0.7 Baso % (Auto) 0.2 Immature Gran # (Auto) 0.10 H Neut # (Auto) 10.33 H Lymph # (Auto) 0.79 L [place] # (Auto) 0.88 H Eos # (Auto) 0.09 Baso # (Auto) 0.02 PT 15.0 H INR 1.5 H APTT 32.2 H PTT Ratio 1.2 POC Sodium Sodium 137 POC Potassium Potassium 4.6 POC Chloride Chloride 102 Carbon Dioxide 31 POC Total CO2 Anion Gap 4.0 POC Anion Gap POC BUN BUN 32 H Creatinine 2.21 H POC Creatinine Est Cr Clr Drug Dosing Not Reportable Est GFR ( Amer) 33.0 Est GFR (Non-Af Amer) 28.5 BUN/Creatinine Ratio 14.3 Glucose 193 H POC Glucose POC Glucose (other) Estimat Average Glucose Hemoglobin A1c Lactate Calcium 8.8 POC Ioniz Calcium Eder Total Bilirubin 1.2 H AST 38 H ALT 23 Alkaline Phosphatase 66 Ammonia Total Protein 7.1 Albumin 3.0 L Globulin 4.1 H Albumin/Globulin Ratio 0.7 L Urine Color Urine Appearance Urine pH Ur Specific [place] Urine Protein Urine Glucose (UA) Urine Ketones Urine Blood Urine Nitrite Urine Bilirubin Urine Urobilinogen Ur Leukocyte Esterase Peritoneal Color Peritoneal Appearance Peritoneal WBC Peritoneal RBC Mononuclear WBCs % Polynuclear WBCs % 08/15/18 08/15/18 08/15/18 19:00 19:08 20:09 WBC RBC Hgb POC Hgb 15.3 Hct POC Hct 45 MCV MCH MCHC RDW Std Deviation RDW Coeff of [place]ora Plt Count MPV Immature Gran % (Auto) Neut % (Auto) Lymph % (Auto) [place] % (Auto) Eos % (Auto) Baso % (Auto) Immature Gran # (Auto) Neut # (Auto) Lymph # (Auto) [place] # (Auto) Eos # (Auto) Baso # (Auto) PT INR APTT PTT Ratio POC Sodium 140 Sodium POC Potassium 4.8 Potassium POC Chloride 99 L Chloride Carbon Dioxide POC Total CO2 29 Anion Gap POC Anion Gap 18.0 POC BUN 29 H BUN Creatinine POC Creatinine 2.0 H Est Cr Clr Drug Dosing Est GFR ( Amer) Est GFR (Non-Af Amer) BUN/Creatinine Ratio Glucose POC Glucose POC Glucose (other) 195 H Estimat Average Glucose Hemoglobin A1c Lactate 2.4 H* Calcium POC Ioniz Calcium Eder 1.09 L Total Bilirubin AST ALT Alkaline Phosphatase Ammonia 37.1 H Total Protein Albumin Globulin Albumin/Globulin Ratio Urine Color Urine Appearance Urine pH Ur Specific [place] Urine Protein Urine Glucose (UA) Urine Ketones Urine Blood Urine Nitrite Urine Bilirubin Urine Urobilinogen Ur Leukocyte Esterase Peritoneal Color Peritoneal Appearance Peritoneal WBC Peritoneal RBC Mononuclear WBCs % Polynuclear WBCs % 08/16/18 08/16/18 08/16/18 06:23 06:23 06:23 WBC 8.81 RBC 3.95 L Hgb 12.3 L POC Hgb Hct 38.9 L POC Hct MCV 98.5 MCH 31.1 MCHC 31.6 L RDW Std Deviation 55.7 H RDW Coeff of Nora 15.4 H Plt Count 285 MPV 10.6 H Immature Gran % (Auto) 0.8 Neut % (Auto) 71.8 Lymph % (Auto) 12.0 [place] % (Auto) 15.1 Eos % (Auto) 0.2 Baso % (Auto) 0.1 Immature Gran # (Auto) 0.07 H Neut # (Auto) 6.32 Lymph # (Auto) 1.06 L [place] # (Auto) 1.33 H Eos # (Auto) 0.02 Baso # (Auto) 0.01 PT Cancelled INR Cancelled APTT PTT Ratio POC Sodium Sodium 138 POC Potassium Potassium 4.2 POC Chloride Chloride 102 Carbon Dioxide 28 POC Total CO2 Anion Gap 8.0 POC Anion Gap POC BUN BUN 34 H Creatinine 2.32 H POC Creatinine Est Cr Clr Drug Dosing 35.5 Est GFR ( Amer) 31.1 Est GFR (Non-Af Amer) 26.9 BUN/Creatinine Ratio 14.9 Glucose 192 H POC Glucose POC Glucose (other) Estimat Average Glucose Hemoglobin A1c Lactate Calcium 8.5 POC Ioniz Calcium Eder Total Bilirubin 1.6 H AST 64 H ALT 23 Alkaline Phosphatase 46 Ammonia Total Protein 6.8 Albumin 2.9 L Globulin 3.9 Albumin/Globulin Ratio 0.7 L Urine Color Urine Appearance Urine pH Ur Specific [place] Urine Protein Urine Glucose (UA) Urine Ketones Urine Blood Urine Nitrite Urine Bilirubin Urine Urobilinogen Ur Leukocyte Esterase Peritoneal Color Peritoneal Appearance Peritoneal WBC Peritoneal RBC Mononuclear WBCs % Polynuclear WBCs % 08/16/18 08/16/18 08/16/18 06:23 09:27 09:46 WBC RBC Hgb POC Hgb Hct POC Hct MCV MCH MCHC RDW Std Deviation RDW Coeff of [place]ora Plt Count MPV Immature Gran % (Auto) Neut % (Auto) Lymph % (Auto) [place] % (Auto) Eos % (Auto) Baso % (Auto) Immature Gran # (Auto) Neut # (Auto) Lymph # (Auto) [place] # (Auto) Eos # (Auto) Baso # (Auto) PT 15.6 H INR 1.6 H APTT PTT Ratio POC Sodium Sodium POC Potassium Potassium POC Chloride Chloride Carbon Dioxide POC Total CO2 Anion Gap POC Anion Gap POC BUN BUN Creatinine POC Creatinine Est Cr Clr Drug Dosing Est GFR ( Amer) Est GFR (Non-Af Amer) BUN/Creatinine Ratio Glucose POC Glucose 166 H POC Glucose (other) Estimat Average Glucose 148 Hemoglobin A1c 6.8 H Lactate Calcium POC Ioniz Calcium Eder Total Bilirubin AST ALT Alkaline Phosphatase Ammonia Total Protein Albumin Globulin Albumin/Globulin Ratio Urine Color Urine Appearance Urine pH Ur Specific [place] Urine Protein Urine Glucose (UA) Urine Ketones Urine Blood Urine Nitrite Urine Bilirubin Urine Urobilinogen Ur Leukocyte Esterase Peritoneal Color Peritoneal Appearance Peritoneal WBC Peritoneal RBC Mononuclear WBCs % Polynuclear WBCs % 08/16/18 08/16/18 08/16/18 14:35 15:28 15:28 WBC RBC Hgb POC Hgb Hct POC Hct MCV MCH MCHC RDW Std Deviation RDW Coeff of Nora Plt Count MPV Immature Gran % (Auto) Neut % (Auto) Lymph % (Auto) [place] % (Auto) Eos % (Auto) Baso % (Auto) Immature Gran # (Auto) Neut # (Auto) Lymph # (Auto) [place] # (Auto) Eos # (Auto) Baso # (Auto) PT INR APTT PTT Ratio POC Sodium Sodium POC Potassium Potassium POC Chloride Chloride Carbon Dioxide POC Total CO2 Anion Gap POC Anion Gap POC BUN BUN Creatinine POC Creatinine Est Cr Clr Drug Dosing Est GFR ( Amer) Est GFR (Non-Af Amer) BUN/Creatinine Ratio Glucose POC Glucose POC Glucose (other) Estimat Average Glucose Hemoglobin A1c Lactate 2.1 H* Calcium POC Ioniz Calcium Eder Total Bilirubin AST ALT Alkaline Phosphatase Ammonia 18.0 Total Protein Albumin Globulin Albumin/Globulin Ratio Urine Color Dark Yellow Urine Appearance Clear Urine pH 5.0 Ur Specific [place] 1.019 Urine Protein Negative Urine Glucose (UA) Negative Urine Ketones Negative Urine Blood Negative Urine Nitrite Negative Urine Bilirubin Negative Urine Urobilinogen Negative Ur Leukocyte Esterase Negative Peritoneal Color Peritoneal Appearance Peritoneal WBC Peritoneal RBC Mononuclear WBCs % Polynuclear WBCs % 08/16/18 08/16/18 17:26 Unknown WBC RBC Hgb POC Hgb Hct POC Hct MCV MCH MCHC RDW Std Deviation RDW Coeff of Nora Plt Count MPV Immature Gran % (Auto) Neut % (Auto) Lymph % (Auto) [place] % (Auto) Eos % (Auto) Baso % (Auto) Immature Gran # (Auto) Neut # (Auto) Lymph # (Auto) [place] # (Auto) Eos # (Auto) Baso # (Auto) PT INR APTT PTT Ratio POC Sodium Sodium POC Potassium Potassium POC Chloride Chloride Carbon Dioxide POC Total CO2 Anion Gap POC Anion Gap POC BUN BUN Creatinine POC Creatinine Est Cr Clr Drug Dosing Est GFR ( Amer) Est GFR (Non-Af Amer) BUN/Creatinine Ratio Glucose POC Glucose 206 H POC Glucose (other) Estimat Average Glucose Hemoglobin A1c Lactate Calcium POC Ioniz Calcium Eder Total Bilirubin AST ALT Alkaline Phosphatase Ammonia Total Protein Albumin Globulin Albumin/Globulin Ratio Urine Color Urine Appearance Urine pH Ur Specific [place] Urine Protein Urine Glucose (UA) Urine Ketones Urine Blood Urine Nitrite Urine Bilirubin Urine Urobilinogen Ur Leukocyte Esterase Peritoneal Color YELLOW Peritoneal Appearance CLOUDY Peritoneal WBC 4020 H Peritoneal RBC < 3000 Mononuclear WBCs % 25.7 Polynuclear WBCs % 74.3 Medications Administered Current Inpatient Medications Al Hydrox/Mg Hydrox/Simethicone (Maalox) 30 ml PO Q6H PRN PRN Reason: Dyspepsia Stop: 09/14/18 23:44 Atorvastatin Calcium (Lipitor) 40 mg PO HS [place] Stop: 09/15/18 20:59 Diphenhydramine HCl (Benadryl) 25 mg IV HS PRN PRN Reason: Sleep Stop: 09/14/18 23:44 Ferrous Sulfate (Feosol) 325 mg PO BID [place] Stop: 09/15/18 08:59 Last Admin: 08/16/18 09:46 Dose: 325 mg Furosemide (Lasix) 20 mg PO QAM [place] Stop: 09/15/18 08:59 Gabapentin (Neurontin) 1,200 mg PO QDD [place] Stop: 09/15/18 16:29 Last Admin: 08/16/18 16:49 Dose: 1,200 mg Gabapentin (Neurontin) 300 mg PO BID COUNTS INCLUDE 234 BEDS AT THE [facility] Stop: 09/15/18 08:59 Last Admin: 08/16/18 09:47 Dose: 300 mg Hydromorphone HCl (Dilaudid) 2 - 4 mg PO Q4 PRN PRN Reason: Pain Hydromorphone HCl (Dilaudid) 1 mg IV Q4H PRN PRN Reason: Pain Stop: 08/29/18 23:44 Last Admin: 08/16/18 16:52 Dose: 1 mg Ceftriaxone Sodium 2,000 mg/ (Dextrose) 70 mls @ 140 mls/hr IV Q24H COUNTS INCLUDE 234 BEDS AT THE [facility]; Protocol Stop: 08/26/18 14:59 Last Infusion: 08/16/18 17:18 Dose: Infused Insulin Human Isoph/Insulin Regular (Novolin 70/30 Regular) 120 units SQ QDB COUNTS INCLUDE 234 BEDS AT THE [facility] Stop: 09/15/18 07:29 Last Admin: 08/16/18 09:38 Dose: Not Given Insulin Human Isoph/Insulin Regular (Novolin 70/30 Regular) 90 units SQ QDD COUNTS INCLUDE 234 BEDS AT THE [facility] Stop: 09/15/18 16:29 Last Admin: 08/16/18 17:32 Dose: 90 units Lactulose (Chronulac) 15 gm PO DAILY PRN PRN Reason: Constipation Magnesium Hydroxide (Milk Of Magnesia) 30 ml PO Q6H PRN PRN Reason: Constipation Stop: 09/14/18 23:44 Miscellaneous (Order Awaiting Action) 1 ea N/A QS COUNTS INCLUDE 234 BEDS AT THE [facility] Stop: 09/15/18 07:59 Last Admin: 08/16/18 16:22 Dose: Not Given Miscellaneous (Order Awaiting Action) 1 ea N/A QS COUNTS INCLUDE 234 BEDS AT THE [facility] Stop: 09/15/18 07:59 Last Admin: 08/16/18 16:22 Dose: Not Given Nadolol (Corgard) 20 mg PO BID COUNTS INCLUDE 234 BEDS AT THE [facility] Stop: 09/15/18 08:59 Last Admin: 08/16/18 09:46 Dose: 20 mg Naloxone HCl (Narcan) 0.4 mg SC PRN PRN PRN Reason: TAKE FOR DRUG OVERDOSE Stop: 09/14/18 21:48 Ondansetron HCl (Zofran) 4 mg IV Q6H PRN PRN Reason: Nausea Stop: 09/14/18 23:44 Last Admin: 08/16/18 16:57 Dose: 4 mg Pantoprazole Sodium (Protonix) 40 mg PO BID COUNTS INCLUDE 234 BEDS AT THE [facility] Stop: 09/15/18 08:59 Last Admin: 08/16/18 09:46 Dose: 40 mg Polyethylene Glycol (Miralax Powder Packet) 17 gm PO DAILY PRN PRN Reason: Constipation Stop: 09/14/18 23:44 Rifaximin (Xifaxan) 550 mg PO BID COUNTS INCLUDE 234 BEDS AT THE [facility] Stop: 09/15/18 08:59 Last Admin: 08/16/18 09:46 Dose: 550 mg Sertraline HCl (Zoloft) 25 mg PO HS COUNTS INCLUDE 234 BEDS AT THE [facility] Stop: 09/15/18 20:59 Spironolactone (Aldactone) 50 mg PO DAILY COUNTS INCLUDE 234 BEDS AT THE [facility] Stop: 09/15/18 08:59 Last Admin: 08/16/18 09:47 Dose: 50 mg Resident Activity Tracking Resident Involvement: Resident Care Provided Care Provided: [facility] _ (1) Abdominal pain Abdominal location: generalized Qualified Code(s): R10.84 - Generalized abdominal pain
[2018-08-16] MEDS: THIAMINE HCL 100 MG TAB PO SCH (20:50)
[2018-08-16] MEDS: ATORVASTATIN 40 MG TAB PO SCH (20:51)
[2018-08-16] MEDS: SERTRALINE HCL 50 MG TABLET PO SCH (20:51)
[2018-08-17] MEDS: FENOFIBRATE~ORDER AWAITING ACTION SCH ×3 (00:17→18:24)
[2018-08-17] MEDS: GABAPENTIN~ORDER AWAITING ACTION SCH ×3 (00:18→18:24)
[2018-08-17] MEDS: INSULIN HUMAN 70% NPH/30% REGULAR SQ SCH (09:19)
[2018-08-17] MEDS: RIFAXIMIN 550 MG TABLET PO SCH ×2 (09:28→21:02)
[2018-08-17] MEDS: THIAMINE HCL 100 MG TAB PO SCH ×2 (09:28→21:01)
[2018-08-17] MEDS: SPIRONOLACTONE 25 MG TAB PO SCH (09:29)
[2018-08-17] MEDS: PANTOprazole 40 MG TAB PO SCH ×2 (09:29→21:01)
[2018-08-17] MEDS: GABAPENTIN 300 MG CAP PO SCH ×3 (09:29→21:00)
[2018-08-17] MEDS: FERROUS SULFATE 325 MG TAB PO SCH ×2 (09:29→21:00)
[2018-08-17] MEDS: NADOLOL 40 MG TAB PO SCH ×2 (09:32→20:59)
[2018-08-17 09:53] LABS: Basophils # (auto) 0.01 K/uL (0-0.2); Basophils % (auto) 0.2 %; Eosinophils # (auto) 0.09 K/uL (0-0.5); Eosinophils % (auto) 1.4 %; Hemoglobin 12.2 g/dL (14.0-18.0); Immature Granulocytes # (auto) 0.03 K/uL (0.00-0.02); Immature Granulocytes % (auto) 0.5 %; Lymphocytes # (auto) 0.88 K/uL (1.2-3.4); Lymphocytes % (auto) 13.9 %; Mean Corpuscular Volume 97.4 fL (80-100); Mean Platelet Volume 10.3 fL (7.4-10.4); Monocytes # (auto) 0.98 K/uL (0.11-0.59); Monocytes % (auto) 15.5 %; Neutrophils # (auto) 4.35 K/uL (1.4-6.5); Neutrophils % (auto) 68.5 %; Platelet Count 228 K/uL (130-400); RDW Coefficient of Variation 15.1 % (11.5-14.5); RDW Standard Deviation 53.2 fL (36.4-46.3); White Blood Count 6.34 K/uL (4.8-10.8)
[2018-08-17] MEDS ORDERED: CARBOHYDRATES FOR HYPOGLYCEMIA PO PRN (10:06)
[2018-08-17] MEDS ORDERED: GLUCOSE 10 TABS/TUBE PO PRN (10:06)
[2018-08-17] MEDS ORDERED: DEXTROSE 50% 50 ML SYRINGE IV PRN (10:06)
[2018-08-17] MEDS ORDERED: GLUCOSE 40% GEL 15 GM TUBE PO PRN (10:06)
[2018-08-17] MEDS ORDERED: GLUCAGON FOR INJ 1 MG VIAL SQ PRN (10:06)
[2018-08-17 10:12] LABS: Albumin Level 2.5 gm/dl (3.4-5.0); BUN Creatinine Ratio 16.1 (10-20); Calcium 8.3 mg/dl (8.5-10.1); Creatinine Clr Calc Pharmacy 41.3 ml/min; Est GFR (African American) 37.5; Est GFR (Non-African American) 32.4; Magnesium 1.7 mg/dl (1.8-2.4); Potassium 3.7 mmol/L (3.5-5.1)
[2018-08-17 10:17] LABS: Albumin Globulin Ratio 0.7 (0.9-2); Bilirubin,Total 0.8 mg/dl (0.2-1); Globulin 3.8 gm/dl (2.5-4.0); Total Protein 6.3 gm/dl (6.4-8.2)
[2018-08-17] MEDS: INSULIN GLARGINE SOLOSTAR 100 UNITS/ML 3 ML PEN SC SCH ×2 (10:53→21:05)
[2018-08-17] MEDS: INSULIN ASPART 100 UNITS/ML 3 ML PEN SC SCH ×3 (13:47→21:09)
--- NOTE | 2018-08-17 14:18 | Gastroenterology Progress Note ---
Date of Service August 17, 2018 Assessment & Plan (1) Altered mental status: Change in MS likely from SBP. Ammonia level only remains in normal range SBP continue abx, cultures neg so far. Will need daily abx prophylaxis once this episode resolved HSE--continue xifaxan and lactulose--follow ammonia elev lactic acid--likely from SBP---resolved renal insufficiency--stable ascites----2 gm Na diet, diuretics depending on renal function gastric thickening vs underdistension--no workup planned portal HTN with varices---continue Corgard colon thickening possibly from liver disease--no workup planned Subjective cc f/u confusion, abd pain, SBP HPI Pt alert, denies abd pain. States tolerating diet. Respiratory: no dyspnea Cardiovascular: no chest pain Physical Exam 2 Vital Signs (Past 24 Hours): Last Vital Signs Temp 37.1 C 08/17/18 07:45 Pulse 86 08/17/18 09:31 Resp 18 08/17/18 07:45 BP 96/58 L 08/17/18 09:31 Pulse Ox 97 08/17/18 07:45 Constitutional: WD/WN, vitals as above Respiratory: normal respiratory effort, lungs clear to auscultation Cardiovascular: RRR, no murmur, no edema Gastrointestinal (Abdomen): normal bowel sounds, soft, nontender, no hepatosplenomegaly _ (1) Altered mental status Altered mental status type: unspecified Coma depth: Coma timing: Qualified Code(s): R41.82 - Altered mental status, unspecified
[2018-08-17] MEDS: cefTRIAXone SODIUM 2,000 MG in DEXTROSE 5% 50 ML IV SCH (14:28)
[2018-08-17] MEDS ORDERED: RIVAROXABAN 15 MG TAB PO SCH (16:30)
--- NOTE | 2018-08-17 17:12 | Family Medicine Progress Note ---
Date of Service August 17, 2018 Assessment & Plan (1) Abdominal pain: 73 y/o M with PMH lliver cirrhosis (h/o AREVALO, esophageal varices), HLD, HTN, IDDM, A fib, and Dementia presents with acute abd pain and AMS, per . 1) Abdominal pain/Ascites/Encephalopathy likely 2/2 SBP -Ammonia level 37 initial, now normal 21, unlikely to contribute to AMS -Lactic acid 2.4 initial, now 1.9, likely 2/2 SBP -GI- 08/16 u/s guided therapeutic and diagnostic paracentesis with aspiration of 8.8 liters of ascites. F/u appt with Dr. King 08/28 scheduled -cultures neg so far -cont IV rocephin. Switch to orals on d/c -Dilaudid for pain -Continue rifaximin, spironolactone, lactulose -MELD score of 21 -->19.6% 3 month mortality risk. Will have discussion with family moving forward regarding prognosis -->Family chooses to go home after tx with fam support -PT/OT- rec home health therapy when d/c 2) Acute on Chronic CKDIII-IV -Pt not candidate for dialysis and reports he would decline if offered -Per outpatient records, Cr varies widely between 1.5-2.7. Today 1.99. Will cont monitor 3) IDDM -Poorly controlled --Nephropathy, neuropathy -Continue gabapentin -Wound care- pt declined -AMAURI testing in December 2017: LLE 0.7, RLE 1.2 -Switched to ISS today and d/c home regimen. Cont monitor BSGs -Hb A1c -6.8 4) HTN/ Portal HTN w/ varices -Will cont nadolol 5) HLD -cont. fenofibrate, atorvastatin 6) A-fib -cont xarelto 15 mg qAM 7) Depression -Cont home sertraline 25 HS 8) Anemia -Cont ferrous sulfate FULL DVT Prophylaxis: SCDs, Xarelto Dispo: med/surg, likely d/c on PO antibiotics tomorrow Supervising Physician Co-Signing Physician Notes I personally examined the patient and verified all bird points of history and exam, discussed case, and agree with decision making with Dr Rome. More awake and alert, no complaints and wondering if he can go home. He notes his abdominal pain is much better. Vitals noted, in general he is awake and alert and much more oriented. No distress. HEENT normocephalic atraumatic mucous membranes are moist. Breathing is unlabored no accessory muscle use good effort. Abdomen is soft nondistended minimally tender no guarding rebound or rigidity. His mental status is much improved. Neuro shows no focal deficits Abdominal pain/altered mental statusappears to be most consistent with SBP. Continue Rocephin, supportive care. Hopefully home in the next day or so Weakness and confusionappears to have been a metabolic encephalopathy related to his SBP. Given his nominal elevation of ammonia, for clarification sake it does not appear that much of a true hepatic encephalopathy was at play. DVT prophylaxisXarelto Otherwise as above Subjective 73 y/o M found this AM in bed in NAD. Pt has h/o dementia so subjective history is somewhat limited, but definitely noted improvement today in cognition. Pt tolerating PO intake post paracentesis. No issues voiding. Abd pain/tenderness improved. Pt has no other acute concerns or complaints. Physical Exam 2 Vital Signs (Past 24 Hours): Last Vital Signs Temp 36.4 C L 08/17/18 15:24 Pulse 100 H 08/17/18 15:24 Resp 19 08/17/18 15:24 BP 102/66 08/17/18 15:24 Pulse Ox 96 08/17/18 15:24 Constitutional: WD/WN, vitals as above + obese and + altered mental status Eyes: PERRL, conjunctivae normal, anicteric sclerae ENMT: external ear and nose normal, oropharynx normal Respiratory: normal respiratory effort, lungs clear to auscultation Cardiovascular: RRR, no murmur, no edema Gastrointestinal (Abdomen): abd tenderness diffuse, improving Skin: no rashes, warm and dry Results & Data Laboratory Results Laboratory Results - last 24 hr 08/16/18 08/16/18 08/17/18 17:26 20:50 08:43 WBC RBC Hgb Hct MCV MCH MCHC RDW Std Deviation RDW Coeff of Nora Plt Count MPV Immature Gran % (Auto) Neut % (Auto) Lymph % (Auto) [place] % (Auto) Eos % (Auto) Baso % (Auto) Immature Gran # (Auto) Neut # (Auto) Lymph # (Auto) [place] # (Auto) Eos # (Auto) Baso # (Auto) Sodium Potassium Chloride Carbon Dioxide Anion Gap BUN Creatinine Est Cr Clr Drug Dosing Est GFR ( Amer) Est GFR (Non-Af Amer) BUN/Creatinine Ratio Glucose POC Glucose 206 H 221 H 105 H Lactate Calcium Magnesium Total Bilirubin AST ALT Alkaline Phosphatase Ammonia Total Protein Albumin Globulin Albumin/Globulin Ratio Vitamin B12 08/17/18 08/17/18 08/17/18 09:42 09:42 09:42 WBC 6.34 RBC 3.80 L Hgb 12.2 L Hct 37.0 L MCV 97.4 MCH 32.1 MCHC 33.0 RDW Std Deviation 53.2 H RDW Coeff of Nora 15.1 H Plt Count 228 MPV 10.3 Immature Gran % (Auto) 0.5 Neut % (Auto) 68.5 Lymph % (Auto) 13.9 [place] % (Auto) 15.5 Eos % (Auto) 1.4 Baso % (Auto) 0.2 Immature Gran # (Auto) 0.03 H Neut # (Auto) 4.35 Lymph # (Auto) 0.88 L [place] # (Auto) 0.98 H Eos # (Auto) 0.09 Baso # (Auto) 0.01 Sodium 137 Potassium 3.7 Chloride 103 Carbon Dioxide 31 Anion Gap 3.0 BUN 32 H Creatinine 1.99 H D Est Cr Clr Drug Dosing 41.3 Est GFR ( Amer) 37.5 Est GFR (Non-Af Amer) 32.4 BUN/Creatinine Ratio 16.1 Glucose 118 H POC Glucose Lactate Calcium 8.3 L Magnesium 1.7 L Total Bilirubin 0.8 D AST 67 H ALT 23 Alkaline Phosphatase 46 Ammonia Total Protein 6.3 L Albumin 2.5 L Globulin 3.8 Albumin/Globulin Ratio 0.7 L Vitamin B12 1478 H 08/17/18 08/17/18 08/17/18 09:42 09:42 09:42 WBC RBC Hgb Hct MCV MCH MCHC RDW Std Deviation RDW Coeff of Nora Plt Count MPV Immature Gran % (Auto) Neut % (Auto) Lymph % (Auto) [place] % (Auto) Eos % (Auto) Baso % (Auto) Immature Gran # (Auto) Neut # (Auto) Lymph # (Auto) [place] # (Auto) Eos # (Auto) Baso # (Auto) Sodium Cancelled Potassium Cancelled Chloride Cancelled Carbon Dioxide Cancelled Anion Gap Cancelled BUN Cancelled Creatinine Cancelled Est Cr Clr Drug Dosing Cancelled Est GFR ( Amer) Cancelled Est GFR (Non-Af Amer) Cancelled BUN/Creatinine Ratio Cancelled Glucose Cancelled POC Glucose Lactate 1.9 Calcium Cancelled Magnesium Total Bilirubin AST ALT Alkaline Phosphatase Ammonia 21.0 Total Protein Albumin Globulin Albumin/Globulin Ratio Vitamin B12 08/17/18 08/17/18 12:31 16:53 WBC RBC Hgb Hct MCV MCH MCHC RDW Std Deviation RDW Coeff of Nora Plt Count MPV Immature Gran % (Auto) Neut % (Auto) Lymph % (Auto) [place] % (Auto) Eos % (Auto) Baso % (Auto) Immature Gran # (Auto) Neut # (Auto) Lymph # (Auto) [place] # (Auto) Eos # (Auto) Baso # (Auto) Sodium Potassium Chloride Carbon Dioxide Anion Gap BUN Creatinine Est Cr Clr Drug Dosing Est GFR ( Amer) Est GFR (Non-Af Amer) BUN/Creatinine Ratio Glucose POC Glucose 166 H 226 H Lactate Calcium Magnesium Total Bilirubin AST ALT Alkaline Phosphatase Ammonia Total Protein Albumin Globulin Albumin/Globulin Ratio Vitamin B12 Medications Administered Current Inpatient Medications Al Hydrox/Mg Hydrox/Simethicone (Maalox) 30 ml PO Q6H PRN PRN Reason: Dyspepsia Stop: 09/14/18 23:44 Atorvastatin Calcium (Lipitor) 40 mg PO HS [place] Stop: 09/15/18 20:59 Last Admin: 08/16/18 20:51 Dose: 40 mg Dextrose (Dextrose 50%) 25 - 50 ml IV UD PRN; Protocol PRN Reason: Hypoglycemia Protocol Stop: 09/16/18 10:05 Diphenhydramine HCl (Benadryl) 25 mg IV HS PRN PRN Reason: Sleep Stop: 09/14/18 23:44 Ferrous Sulfate (Feosol) 325 mg PO BID [place] Stop: 09/15/18 08:59 Last Admin: 08/17/18 09:29 Dose: 325 mg Furosemide (Lasix) 20 mg PO QAM [place] Stop: 09/15/18 08:59 Gabapentin (Neurontin) 1,200 mg PO QDD [place] Stop: 09/15/18 16:29 Last Admin: 08/16/18 16:49 Dose: 1,200 mg Gabapentin (Neurontin) 300 mg PO BID [place] Stop: 09/15/18 08:59 Last Admin: 08/17/18 09:29 Dose: 300 mg Glucagon (Glucagen) 1 mg SQ UD PRN; Protocol PRN Reason: Hypoglycemia Protocol Stop: 09/16/18 10:05 Glucose (Dex4 Glucose) 4 - 8 tabs PO UD PRN; Protocol PRN Reason: Hypoglycemia Protocol Stop: 09/16/18 10:05 Glucose (Glucose 40%) 15 - 30 gm PO UD PRN; Protocol PRN Reason: Hypoglycemia Protocol Stop: 09/16/18 10:05 Hydromorphone HCl (Dilaudid) 2 - 4 mg PO Q4 PRN PRN Reason: Pain Hydromorphone HCl (Dilaudid) 1 mg IV Q4H PRN PRN Reason: Pain Stop: 08/29/18 23:44 Last Admin: 08/16/18 16:52 Dose: 1 mg Ceftriaxone Sodium 2,000 mg/ (Dextrose) 70 mls @ 140 mls/hr IV Q24H [place]; Protocol Stop: 08/26/18 14:59 Last Infusion: 08/17/18 15:45 Dose: Infused Insulin Aspart (Novolog Flexpen) 0 units SC ACHS [place] Stop: 09/16/18 11:29 Last Admin: 08/17/18 13:47 Dose: 6 units Insulin Glargine (Lantus Solostar Pen) 20 units SC Q12 [place] Stop: 09/16/18 10:19 Last Admin: 08/17/18 10:53 Dose: 20 units Lactulose (Chronulac) 15 gm PO DAILY PRN PRN Reason: Constipation Magnesium Hydroxide (Milk Of Magnesia) 30 ml PO Q6H PRN PRN Reason: Constipation Stop: 09/14/18 23:44 Miscellaneous (Order Awaiting Action) 1 ea N/A QS [facility] Stop: 09/15/18 07:59 Last Admin: 08/17/18 09:27 Dose: Not Given Miscellaneous (Order Awaiting Action) 1 ea N/A QS [facility] Stop: 09/15/18 07:59 Last Admin: 08/17/18 09:27 Dose: Not Given Miscellaneous (Carbohydrates For Hypoglycemia) 15 - 30 gm PO UD PRN PRN Reason: Hypoglycemia Treatment Stop: 09/16/18 10:05 Nadolol (Corgard) 20 mg PO BID [facility] Stop: 09/15/18 08:59 Last Admin: 08/17/18 09:32 Dose: Not Given Naloxone HCl (Narcan) 0.4 mg SC PRN PRN PRN Reason: TAKE FOR DRUG OVERDOSE Stop: 09/14/18 21:48 Ondansetron HCl (Zofran) 4 mg IV Q6H PRN PRN Reason: Nausea Stop: 09/14/18 23:44 Last Admin: 08/16/18 16:57 Dose: 4 mg Pantoprazole Sodium (Protonix) 40 mg PO BID [facility] Stop: 09/15/18 08:59 Last Admin: 08/17/18 09:29 Dose: 40 mg Polyethylene Glycol (Miralax Powder Packet) 17 gm PO DAILY PRN PRN Reason: Constipation Stop: 09/14/18 23:44 Rifaximin (Xifaxan) 550 mg PO BID [facility] Stop: 09/15/18 08:59 Last Admin: 08/17/18 09:28 Dose: 550 mg Rivaroxaban (Xarelto) 15 mg PO QDD [facility] Stop: 09/16/18 16:29 Sertraline HCl (Zoloft) 25 mg PO HS [facility] Stop: 09/15/18 20:59 Last Admin: 08/16/18 20:51 Dose: 25 mg Spironolactone (Aldactone) 50 mg PO DAILY [facility] Stop: 09/15/18 08:59 Last Admin: 08/17/18 09:29 Dose: 50 mg Thiamine HCl (Vitamin B-1) 100 mg PO BID [facility] Stop: 09/15/18 20:59 Last Admin: 08/17/18 09:28 Dose: 100 mg Resident Activity Tracking Resident Involvement: Resident Care Provided Care Provided: [facility] _ (1) Abdominal pain Abdominal location: generalized Qualified Code(s): R10.84 - Generalized abdominal pain
[2018-08-17] MEDS: ONDANSETRON INJ 2 MG/ML 2 ML VIAL IV PRN (20:04)
[2018-08-17] MEDS: ATORVASTATIN 40 MG TAB PO SCH (21:00)
[2018-08-17] MEDS: SERTRALINE HCL 50 MG TABLET PO SCH (21:01)
[2018-08-18] MEDS: FENOFIBRATE~ORDER AWAITING ACTION SCH ×2 (00:53→09:05)
[2018-08-18] MEDS: GABAPENTIN~ORDER AWAITING ACTION SCH ×2 (00:53→09:05)
[2018-08-18 08:41] LABS: INR 1.8 (0.9-1.1)
[2018-08-18 08:46] LABS: Albumin Level 2.1 gm/dl (3.4-5.0); BUN Creatinine Ratio 17.8 (10-20); Calcium 7.8 mg/dl (8.5-10.1); Creatinine Clr Calc Pharmacy 41.1 ml/min; Est GFR (African American) 37.3; Est GFR (Non-African American) 32.2; Potassium 3.8 mmol/L (3.5-5.1)
[2018-08-18 08:48] LABS: Basophils # (auto) 0.01 K/uL (0-0.2); Basophils % (auto) 0.2 %; Eosinophils # (auto) 0.12 K/uL (0-0.5); Eosinophils % (auto) 2.3 %; Hematocrit (blood only) 36.8 % (42-52); Hemoglobin 11.9 g/dL (14.0-18.0); Immature Granulocytes # (auto) 0.03 K/uL (0.00-0.02); Immature Granulocytes % (auto) 0.6 %; Lymphocytes % (auto) 25.1 %; Mean Corpuscular Hgb Conc 32.3 g/dL (32-36); Mean Corpuscular Volume 96.1 fL (80-100); Mean Platelet Volume 10.6 fL (7.4-10.4); Monocytes % (auto) 11.6 %; Neutrophils # (auto) 3.11 K/uL (1.4-6.5); Neutrophils % (auto) 60.2 %; Platelet Count 225 K/uL (130-400); RDW Coefficient of Variation 14.9 % (11.5-14.5); RDW Standard Deviation 52.7 fL (36.4-46.3); Red Blood Count 3.83 M/uL (4.7-6.1); White Blood Count 5.17 K/uL (4.8-10.8)
[2018-08-18 08:49] LABS: Albumin Globulin Ratio 0.6 (0.9-2); Bilirubin,Total 0.4 mg/dl (0.2-1); Globulin 3.5 gm/dl (2.5-4.0); Total Protein 5.6 gm/dl (6.4-8.2)
[2018-08-18] MEDS: FERROUS SULFATE 325 MG TAB PO SCH (09:06)
[2018-08-18] MEDS: SPIRONOLACTONE 25 MG TAB PO SCH (09:06)
[2018-08-18] MEDS: THIAMINE HCL 100 MG TAB PO SCH (09:07)
[2018-08-18] MEDS: PANTOprazole 40 MG TAB PO SCH (09:07)
[2018-08-18] MEDS: GABAPENTIN 300 MG CAP PO SCH (09:07)
[2018-08-18] MEDS: RIFAXIMIN 550 MG TABLET PO SCH (09:08)
[2018-08-18] MEDS: NADOLOL 40 MG TAB PO SCH (09:10)
[2018-08-18] MEDS: INSULIN GLARGINE SOLOSTAR 100 UNITS/ML 3 ML PEN SC SCH (09:12)
[2018-08-18] MEDS: INSULIN ASPART 100 UNITS/ML 3 ML PEN SC SCH ×2 (09:13→13:05)
[2018-08-18] MEDS: cefTRIAXone SODIUM 2,000 MG in DEXTROSE 5% 50 ML IV SCH (15:07)
--- NOTE | 2018-08-18 15:23 | Discharge Summary ---
Date of Service August 18, 2018 Admission HPI Per Admitting Provider Patient ia a 73yo M, PMH Liver cirrhosis (AREVALO) with known esophageal varices/ external hemorrhoids, HLD, HTN, Afib (xarelto), splenic infarct (2016), IDDM ( poorly controlled, with neuropathy and nephropathy CKDIII), Dementia, depression presents with acute abdominal pain. Per ER staff, pt's was in ER today for broken ankle, and brought along for increasing confusion and acute abdominal pain. Patient has known progressive liver disease and recently received outpatient therapeutic paracentesis about 3-4 weeks ago which yielded 8.5L of fluid. That was the second time he has had therapeutic paracentesis. He follows with Dr. King and Dr. Villa for his liver and kidney issues. reports increasing confusion in the past few days but the abdominal pain has become intolerable in just the past 24 hours. She and son also report general deconditioning and decline in functional status, decrease food and fluid intake, and appears dizzy when standing (which the patient denies). Labs in ER significant for INR of 1.5, ammonia of 37, lactate 2.4, Cr of 2.21 Principal Diagnosis Spontaneous Bacterial Peritonitis Discharge Exam General: A&Ox3. NAD. Cooperative. HEENT: Atraumatic, normocephalic. Pulm: CTAB A&P. -wheezes, -rales, -rhonchi. Symmetrical chest rise. No increase work of breathing. No respiratory distress. Cardiac: RRR, -mrg. Radial pulses intact and symmetrical. Abdominal: Softly distended. Nontender. Small 1cm ulceration without erythema/ pus/discharge present on LLQ. No rebound tenderness. Discharge Data Allergies Allergy/AdvReac Type Severity Reaction Status Date / Time No Known Allergies Allergy Unverified 08/15/18 19:47 Consultations 08/15/18 20:00 ED Decision to Admit Stat 08/15/18 23:45 Consult Gastroenterology Routine Ordered Studies 08/15/18 19:11 CT abd pelvis wo con Stat 08/16/18 07:00 US paracentesis abd w/image Routine Hospital Course (1) SBP (spontaneous bacterial peritonitis): Mr. Ceron is a 73yo M with a PMHx of liver cirrhosis w/ ascites and varices, HTN, HLD, ID-DM, Afib, and dementia who presented to abdominal pain and distension. He was admitted for spontaneous bacterial peritonitis. 8L of fluid was removed on paracentesis and was consistent with cirrhotic ascites with elevated white count consistent with SBP. He recieved empiric Vanc/Zosyn in the emergency department and was transitioned to rocephin on the floor. He experienced rapid improvement in his symptoms following paracentesis and antibiotic therapy. He was discharged to complete 13 more days of ciprofloxacin 500mg BID for acute BID with instructions to transition to 500mg daily after for SBP prophylaxsis. He was provided a script for followup BMP to be filled in one week. His abdomen was softly distended and nontender at time of discharge. (2) CKD (chronic kidney disease), stage III: His baseline Cr varies between 1.5 and 2.7, was initially elevated to 2.0 and was ~1.9 at time of discharge. He was not a candidate for dialysis and pt reported he would decline dialysis if offered. Electrolytes were normal at time of discharge. He has anemia of chronic kidney disease for which he was continued to iron repletion. (3) Cirrhosis: Mr. Ceron has a history of cirrhotic liver disease. he was continued on rifaxamin, spironolactone, and lactulose during admission. His ammonia was initially elevated at 37 and downtrended to 19. He has a history of varices for which nadolol was continued, no signs of acute bleeding during admission. 8L of ascitic fluid consistent with cirrhosis was removed via paracentesis as noted above. Mr. Ceron has a MELD score of 21 (19% 3 month mortality) which was discussed the patient and his family. They preferred to have pt discharged to home and will followup with Dr. King on 08/28. (4) Diabetes: Mr. Ceron has a history of T2DM with neuropathy and nephropathy managed with insulin NPH/regular 70/30 120U qAM, 90U qPM at home. He was transitioned to basal bolus insulin during admission with adequate glycemic control. He experienced no episodes of severe hyperglycemia or hypoglycemia. His [employer] doses of gabapentin were continued. (5) Hyperlipidemia: [employer] fenofibrate and atorvastatin were continued during admission. (6) Atrial fibrillation: [employer] xarelto was continued during admission. Nadolol was continued as noted below. He was in a regular rhythm at time of discharge. Total Time Total Time Spent Total Time Spent (In Minutes): <30 Total Time Includes: Examination of the Patient, Discharge Planning, Medication Reconciliation and Communication With Other Providers Discharge Plan Discharge Items Patient Disposition: Home - Self-Care Reason For Visit: ABDOMINAL PAIN Discharge Diagnosis: Spontaneous Bacterial Peritonitis Discharge Goals: Improve disease control and Prevent disease Activity: Per 'Additional Instructions' section Non-emergency contact: Primary Care Provider Call non-emergency contact if: you have any medication questions, your symptoms worsen, your pain is not controlled, you have a fever and your temperature is above 100.5 Follow-up/Referrals: Rocio Damico MD [Primary Care Provider] - 08/21/18 12:00 pm Jordan King [Physician] - 08/28/18 2:40 pm () Diet: Regular and Carb Consistent or DM2 Addtl Provider Instructions: You were seen in the hospital for an infection of the fluid in your abdomen. Eight liters of fluid was removed by a procedure and you have been treated with antibiotics. You will need to continue antibiotics and noted below when you return home. Physical/Occupation therapy saw you in the hospital and noted that you lost strength during your admission. A referall for home health services has been made for you to help you get stronger. You have been prescribed a new medication, ciprofloxacin. Please take ciprofloxacin 500mg twice daily until 08/31/2018. You will take your first dose the evening of discharge on 08/18/18. After 08/31/2018 you will need to take ciprofloxacin once every day. Starting on please take ciprofloxacin 500mg once daily. You will need to have blood work checked in one week. A script for this blood work, a BMP, has been provided. Please take this script to the lab to have it completed next week. You have had a followup appointment scheduled with your primary care doctor Dr. Damico on 08/21/2018 at noon. If you need to cancel or change this appointment, please call their office at . You have had a followup appointment scheduled at the gastroenterology office with Dr. King on 08/28/2018 at 2:40pm.If you need to cancel or change this appointment, please call their office at . If you develop fever, chills, worsening abdominal pain, chest pain, shortness of breath, difficulty breathing, or night sweats please call your primary care doctor at [phone], or call 911 for transport to the emergency department if you are concerned. Prescriptions: New ciprofloxacin HCl 500 mg tablet 500 mg PO BID 13 Days Qty: 26 RF: 0 ciprofloxacin HCl 500 mg tablet 500 mg PO DAILY 90 Days Qty: 90 RF: 1 Continue atorvastatin 40 mg tablet 40 mg PO HS RF: 0 aspirin [Aspir-81] 81 mg Tablet,Delayed Release (Dr/Ec) 81 mg PO DAILY RF: 0 ferrous sulfate [FeroSul] 325 mg (65 mg iron) Tablet 325 mg PO BID RF: 0 furosemide [Lasix] 20 mg tablet 40 mg PO DAILY RF: 0 fenofibrate 160 mg tablet 160 mg PO DAILY RF: 0 gabapentin [Neurontin] 300 mg capsule 1,200 mg PO DAILY RF: 0 gabapentin [Neurontin] 300 mg capsule 300 mg PO BID RF: 0 multivitamin Tablet 1 tab PO DAILY RF: 0 gabapentin 600 mg Tablet 600 mg PO UD RF: 0 insulin NPH and regular human [Novolin 70/30 U-100 Insulin] 100 unit/mL (70-30 ) suspension 120 unit subcut QAM RF: 0 insulin NPH and regular human [Novolin 70/30 U-100 Insulin] 100 unit/mL (70-30 ) suspension 90 unit subcut QPM RF: 0 nadolol [Corgard] 20 mg tablet 20 mg PO BID RF: 0 pantoprazole [Protonix] 40 mg tablet,delayed release (DR/EC) 40 mg PO BID RF: 0 hydromorphone [Dilaudid] 4 mg tablet 2 - 4 mg PO Q4 PRN (Reason: Pain) RF: 0 sertraline [Zoloft] 50 mg tablet 25 mg PO HS RF: 0 spironolactone [Aldactone] 50 mg tablet 50 mg PO DAILY RF: 0 lactulose 10 gram/15 mL Solution 15 ml PO DAILY PRN (Reason: Constipation) RF: 0 rifaximin [Xifaxan] 550 mg Tablet 550 mg PO BID RF: 0 rivaroxaban [Xarelto] 15 mg tablet 15 mg PO DAILY RF: 0 naloxone [Narcan] 4 mg/actuation [place],Non-Aerosol 1 dose Intranasal UD PRN (Reason: TAKE FOR DRUG OVERDOSE) RF: 0 Stand-Alone Forms: [facility], [facility]/Other Patient Handouts: Hyperglycemia, Hypoglycemia, Blood Sugar Check Discharge Orders: Discharge Order (Routine); Ordered 08/18/18 Ordered By: Kris Strauss Admission Data Admit Date/Time: 08/15/18 22:04 Attending Provider: Daniel Zayas Admit Provider: Juno Gallegos Primary Care Provider: Rocio Damico Other Providers: Juno Gallegos ; Jordan King Service: Surgical Services Other Interventions: Discharge Summary Assessment (RN) Last Done: 08/18/18 14:37 Pending Studies at Discharge: Yes Studies:: BMP to be completed 1 week after discharge DC Date/Time DO NOT enter until pt leaves facility: 08/18/18 15:30 Supervising Physician Co-Signing Physician Notes I personally examined the patient and verified all bird points of history and exam, discussed case, and agree with decision making with Dr Strauss. Feeling better. Belly feels better. No new problems. Wants to go home. Vitals noted, in general he is awake and alert pleasant no distress. HEENT normocephalic atraumatic mucous membranes moist. His abdomen is soft moderately distended with a fluid wave but it is nontender no erythema. Neuro shows no focal deficits. Metabolic encephalopathy related to SBP. For clarification sake his ammonia only had a nominal elevation, so I doubt much of any hepatic encephalopathy was at play. His mental status has improved SBP (with possible sepsis present on admission, given his Sirs criteria of his white count heart rate and respiratory rate)much improved. Home on Cipro. In consideration of risks benefits and alternatives, given his renal function Bactrim does not appear to be a safe option, and so fluoroquinolone given his clear and present risk with his ongoing cirrhosis ascites and peritonitis, setting him at risk for future peritonitis episodes, makes the utilization of a fluoroquinolone appear to be the best option in his overall situation. Stable for home Resident Activity Tracking Resident Involvement: Resident Care Provided Care Provided: Adult Hospital Medicine
== END 2018-08-18 15:30 | disposition home or self-care (01) | DRG 871 ==
LOC: ED 17:58 → 3N 22:04 → SUATTDRO 22:04 → 3N 23:33

== ENCOUNTER 2018-09-26 00:01 | Inpatient (IN) ==
[2018-09-26 00:51] LABS: Basophils # (auto) 0.02 K/uL (0-0.2); Basophils % (auto) 0.3 %; Eosinophils # (auto) 0.13 K/uL (0-0.5); Eosinophils % (auto) 2.2 %; Hematocrit (blood only) 39.3 % (42-52); Immature Granulocytes # (auto) 0.05 K/uL (0.00-0.02); Immature Granulocytes % (auto) 0.8 %; Lymphocytes # (auto) 1.03 K/uL (1.2-3.4); Lymphocytes % (auto) 17.2 %; Mean Corpuscular Hgb Conc 33.1 g/dL (32-36); Mean Corpuscular Volume 92.5 fL (80-100); Monocytes # (auto) 0.38 K/uL (0.11-0.59); Monocytes % (auto) 6.4 %; Neutrophils # (auto) 4.37 K/uL (1.4-6.5); Neutrophils % (auto) 73.1 %; Platelet Count 280 K/uL (130-400); RDW Coefficient of Variation 16.5 % (11.5-14.5); RDW Standard Deviation 55.4 fL (36.4-46.3); Red Blood Count 4.25 M/uL (4.7-6.1); White Blood Count 5.98 K/uL (4.8-10.8)
[2018-09-26 01:05] LABS: Appearance Urine Clear (Clear); Bilirubin Urine Negative (Negative); Blood Urine Negative (Negative); Color Urine Dark Yellow; Glucose Urine UA 2+ (Negative); Ketones Urine Negative (Negative); Leukocyte Esterase Urine Negative (Negative); Nitrite Urine Negative (Negative); Protein Urine Negative (Negative); Specific Gravity Urine 1.021 (1.000-1.030); Urobilinogen Urine Negative (Negative)
[2018-09-26 01:08] LABS: Prothrombin Time 19.6 Seconds (9.0-12.0)
[2018-09-26 01:14] LABS: Albumin Globulin Ratio 0.7 (0.9-2); Albumin Level 2.8 gm/dl (3.4-5.0); BUN Creatinine Ratio 15.6 (10-20); Bilirubin,Total 0.7 mg/dl (0.2-1); Calcium 8.9 mg/dl (8.5-10.1); Creatinine Clr Calc Pharmacy 34.2 ml/min; Globulin 4.1 gm/dl (2.5-4.0); Potassium 4.5 mmol/L (3.5-5.1); Total Protein 6.9 gm/dl (6.4-8.2)
[2018-09-26 01:32] LABS: Beta-Hydroxybutyrate 1.07 mg/dl (0.2-2.81)
[2018-09-26] MEDS ORDERED: PHYTONADIONE 5 MG in SODIUM CHLORIDE 0.9% 50 ML IV ONE (03:00)
[2018-09-26] MEDS ORDERED: GLUCAGON FOR INJ 1 MG VIAL SQ PRN (04:50)
[2018-09-26] MEDS ORDERED: CARBOHYDRATES FOR HYPOGLYCEMIA PO PRN (04:50)
[2018-09-26] MEDS ORDERED: DEXTROSE 50% 50 ML SYRINGE IV PRN (04:50)
[2018-09-26] MEDS ORDERED: GLUCOSE 10 TABS/TUBE PO PRN (04:50)
[2018-09-26] MEDS ORDERED: GLUCOSE 40% GEL 15 GM TUBE PO PRN (04:50)
[2018-09-26] MEDS ORDERED: ONDANSETRON INJ 2 MG/ML 2 ML VIAL IV PRN (04:50)
[2018-09-26] MEDS ORDERED: HYDROmorphone HCL 2 MG TAB PO PRN ×2 (05:43→06:15)
--- NOTE | 2018-09-26 06:19 | History & Physical Report ---
Date of Service September 26, 2018 Assessment & Plan (1) Encephalopathy, hepatic: Early hepatic encephalopathy/cirrhosis/worsening ascites/history of SBP/erosive gastritis/esophageal varices-- Patient has had a more rapid reaccumulation of ascites, this time in 2 weeks since the last paracentesis performed by radiology. Will hold Xarelto, and aspirin, and give vitamin K for INR of 2.0 to help prepare for paracentesis. Consult radiology for paracentesis. Continue Cipro, furosemide, spironolactone, nadolol, Xifaxan and pantoprazole. Change lactulose from 15 mL's daily as needed to 15 mL's p.o. twice daily. Repeat laboratories in the a.m. Present on Admission?: Yes (2) Esophageal varices: No signs of bleeding. Present on Admission?: Yes (3) Erosive gastritis: Continue pantoprazole for prophylaxis. Present on Admission?: Yes (4) Diabetic neuropathy: Continue gabapentin 600 mg p.o. twice daily. Present on Admission?: Yes (5) CKD (chronic kidney disease), stage III: CKD stage III/diabetic nephropathy-- Creatinine 2.46 upon admission, improved from 08/31/18 at 2.53. We will hold off more aggressive diuresis overnight until paracentesis is performed. Consult his wire rigger Dr. Clay Villa Present on Admission?: Yes (6) Diabetic nephropathy: As above. Present on Admission?: Yes (7) Ascites: As above, will consult radiology for therapeutic paracentesis. Family reports that his pillowcase folder Dr. King reports that he is not a candidate for catheter placement due to concerns regarding infection and history of SBP Present on Admission?: Yes (8) Cirrhosis: As above. Present on Admission?: Yes (9) Hyperglycemia due to type 2 diabetes mellitus: Not sure if he is actually taking his insulin at this point. He was hyperglycemic with glucose 364, and given 10 units of regular insulin IV by ED. Expect his overall oral intake below. Will cover him with Humalog tonight, and will resume half dose of his Novolin 70/30 insulin for the morning and evening. Placed on Accu-Cheks before meals and at bedtime with Humalog coverage per scale. Present on Admission?: Yes (10) Depression: Continue sertraline and gabapentin. Present on Admission?: Yes (11) Hyperlipidemia: Continue atorvastatin Present on Admission?: Yes (12) Atrial fibrillation: As noted above, will hold Xarelto and aspirin pre-paracentesis. Continue nadolol with hold parameters. Present on Admission?: Yes History of Present Illness Chief Complaint: Patient presents to the emergency department with his and daughter, due to recurrence of ascites in 2 weeks since last paracentesis by radiology, and to question of early mental status changes. Primary Care Provider: Rocio Damico MD The patient is a 73-year-old male with a past medical history including hepatic encephalopathy, ascites, SBP, esophageal varices, erosive gastritis, cirrhosis, dementia, diabetes mellitus insulin requiring, atrial fibrillation on chronic Xarelto, who presents to the emergency department with reaccumulation of ascites and worsening abdominal distention over the past 2 weeks since his last paracentesis by radiology. Family questions with his mental status at this point also, as he appears to them to be a bit more lethargic, but is also not sleeping well due to the pressure of the ascites. He has no other acute complaints suggestive of illness as far as change in bowel habits, urinary hab its or signs of upper respiratory or lower respiratory infection. Allergies Allergy/AdvReac Type Severity Reaction Status Date / Time No Known Allergies Allergy Unverified 09/26/18 02:39 Home Medications Home Medications Medication Instructions Recorded Confirmed Type Narcan 1 dose INTRANASAL UD PRN 08/15/18 09/26/18 History Novolin 70/30 U-100 Insulin 90 unit SUBCUT HS 08/15/18 09/26/18 History Novolin 70/30 U-100 Insulin 125 unit SUBCUT QAM 08/15/18 09/26/18 History Xarelto 15 mg PO DAILY 08/15/18 09/26/18 History Xifaxan 550 mg PO BID 08/15/18 09/26/18 History aspirin [Aspir-81] 81 mg PO DAILY 08/15/18 09/26/18 History atorvastatin 40 mg PO HS 08/15/18 09/26/18 History fenofibrate 160 mg PO DAILY 08/15/18 09/26/18 History ferrous sulfate [FeroSul] 325 mg PO BID 08/15/18 09/26/18 History furosemide [Lasix] 40 mg PO DAILY 08/15/18 09/26/18 History gabapentin 1,200 mg PO QPM 08/15/18 09/26/18 History hydromorphone [Dilaudid] 2 - 4 mg PO Q4 PRN 08/15/18 09/26/18 History lactulose 15 ml PO DAILY PRN 08/15/18 09/26/18 History multivitamin 1 tab PO DAILY 08/15/18 09/26/18 History nadolol [Corgard] 20 mg PO BID 08/15/18 09/26/18 History pantoprazole [Protonix] 40 mg PO BID 08/15/18 09/26/18 History sertraline [Zoloft] 25 mg PO HS 08/15/18 09/26/18 History spironolactone [Aldactone] 50 mg PO DAILY 08/15/18 09/26/18 History ciprofloxacin HCl 500 mg PO DAILY 90 Days #90 tab 08/18/18 09/26/18 Rx gabapentin 600 mg PO AMHS 09/26/18 09/26/18 History multivitamin [Multiple Vitamins] 1 tab PO DAILY 09/26/18 09/26/18 History Past Med/Surg History Medical History SBP (spontaneous bacterial peritonitis) Esophageal varices Hemorrhoids Erosive gastritis Depression Diabetic nephropathy CKD (chronic kidney disease), stage III Dementia Splenic infarct Hyperlipidemia Altered mental status (Acute) Cirrhosis (Chronic) Atrial fibrillation (Chronic) Diabetes (Chronic) Hypertension (Chronic) Acute diarrhea Liver failure Renal failure Stroke Social History Preferred Language: Somali Communication Ability: Effective Technology Engineer Required: No Beliefs That Will Affect Care: None marital status: Current Living Situation: Spouse current occupational status: retired Other Information That Helps Us Care for You: No Feels Safe at Home: Yes Safety Concerns: Feels Safe At This Time Smoking Status: Former smoker Hx Alcohol Use: No Hx Substance Use: No Review of Systems The patient denies chest pain, palpitations, cough, sore throat, fevers, chills, sweats, nausea, vomiting, diarrhea , constipation, blood in urine or stool, dysuria, urinary frequency or urgency, dizziness, headache, loss of consciousness, rash, abnormal bruising or bleeding, imbalance, focal weakness, numbness or tingling in arms or legs, generalized arthralgias or myalgias, or night sweats. The review of systems is otherwise negative other than for that already noted above, and at least 10 systems have been reviewed. Physical Exam Vital Signs (Past 24 Hours): Last Vital Signs Temp 36.8 C 09/26/18 05:10 Pulse 76 09/26/18 05:11 Resp 16 09/26/18 05:10 BP 127/85 09/26/18 05:10 Pulse Ox 95 09/26/18 05:10 Physical Exam: The patient is awake, alert and oriented 3, although answers are slow. Normocephalic and atraumatic, lying in bed and in no acute distress. HEENT--PERRL, EOMI, mucous membranes and oropharynx normal. Neck--supple. No JVD. No bruits. Thyroid normal, trachea midline, no adenopathy. Heart--normal S1 and S2. No murmurs, rubs or gallops. Lungs--clear bilaterally, no respiratory distress, no accessory muscle use. Abdomen--normal bowel sounds. Distended, but nontender. Moderately firm. Extremities--no cyanosis or clubbing. Bilateral pretibial 2+ pitting edema. Dermatologic--normal skin turgor, normal color, no abnormal lymph nodes, no rash. Neurologic--cranial nerves II through XII grossly intact. Rheumatologic--limited exam Psychiatric--normal affect. Results & Data Laboratory Results Laboratory Results WBC 5.98 K/uL (4.8-10.8) 09/25/18 23:25 RBC 4.25 M/uL (4.7-6.1) L 09/25/18 23:25 Hgb 13.0 g/dL (14.0-18.0) L 09/25/18 23:25 Hct 39.3 % (42-52) L 09/25/18 23:25 MCV 92.5 fL (80-100) 09/25/18 23:25 MCH 30.6 pg (25-34) 09/25/18 23:25 MCHC 33.1 g/dL (32-36) 09/25/18 23:25 RDW Std Deviation 55.4 fL (36.4-46.3) H 09/25/18 23:25 RDW Coeff of Nora 16.5 % (11.5-14.5) H 09/25/18 23:25 Plt Count 280 K/uL (130-400) 09/25/18 23:25 MPV 12.0 fL (7.4-10.4) H 09/25/18 23:25 Immature Gran % (Auto) 0.8 % 09/25/18 23:25 Neut % (Auto) 73.1 % 09/25/18 23:25 Lymph % (Auto) 17.2 % 09/25/18 23:25 [place] % (Auto) 6.4 % 09/25/18 23:25 Eos % (Auto) 2.2 % 09/25/18 23:25 Baso % (Auto) 0.3 % 09/25/18 23: Immature Gran # (Auto) 0.05 K/uL (0.00-0.02) H 09/25/18 23: Neut # (Auto) 4.37 K/uL (1.4-6.5) 09/25/18 23: Lymph # (Auto) 1.03 K/uL (1.2-3.4) L 09/25/18: [place] # (Auto) 0.38 K/uL (0.11-0.59) 09/25/18 23:25 Eos # (Auto) 0.13 K/uL (0-0.5) 09/25/18 23: Baso # (Auto) 0.02 K/uL (0-0.2) 09/25/18 23:25 PT 19.6 Seconds (9.0-12.0) H 09/25/18 23:25 INR 2.0 (0.9-1.1) H 09/25/18 23:25 Sodium 137 mmol/L (136-145) 09/25/18 23:25 Potassium 4.5 mmol/L (3.5-5.1) 09/25/18 23:25 Chloride 98 mmol/L (98-107) 09/25/18 23:25 Carbon Dioxide 31 mmol/L (21-32) 09/25/18 23:25 Anion Gap 8.0 (3-11) 09/25/18 23:25 BUN 38 mg/dl (7-18) H 09/25/18 23:25 Creatinine 2.46 mg/dl (0.6-1.4) H 09/25/18 23:25 Est Cr Clr Drug Dosing 34.2 ml/min 04/02/19 23:25 Est GFR ( Amer) 29.0 09/25/18 23:25 Est GFR (Non-Af Amer) 25.0 09/25/18 23:25 BUN/Creatinine Ratio 15.6 (10-20) 09/25/18 23:25 Glucose 364 mg/dl (70-99) H* 09/25/18 23:25 POC Glucose 292 (70-99) H 09/26/18 05:45 Calcium 8.9 mg/dl (8.5-10.1) 09/25/18 23:25 Total Bilirubin 0.7 mg/dl (0.2-1) 09/25/18 23:25 AST 46 U/L (15-37) H 09/25/18 23:25 ALT 20 U/L (12-78) 09/25/18 23:25 Alkaline Phosphatase 55 U/L (45-117) 09/25/18 23:25 Ammonia 37.0 umol/L (11-32) H 09/26/18 00:40 Total Protein 6.9 gm/dl (6.4-8.2) 09/25/18 23:25 Albumin 2.8 gm/dl (3.4-5.0) L 09/25/18 23:25 Globulin 4.1 gm/dl (2.5-4.0) H 09/25/18 23:25 Albumin/Globulin Ratio 0.7 (0.9-2) L 09/25/18 23:25 Lipase 148 U/L (73-393) 09/25/18 23:25 Beta-Hydroxybutyric Acd 1.07 mg/dl (0.2-2.81) 09/25/18 23:25 Urine Color Dark Yellow 09/26/18 00:40 Urine Appearance Clear (Clear) 09/26/18 00:40 Urine pH 5.0 (4.5-7.5) 09/26/18 00:40 Ur Specific [place] 1.021 (1.000-1.030) 09/26/18 00:40 Urine Protein Negative (Negative) 09/26/18 00:40 Urine Glucose (UA) 2+ (Negative) H 09/26/18 00:40 Urine Ketones Negative (Negative) 09/26/18 00:40 Urine Blood Negative (Negative) 09/26/18 00:40 Urine Nitrite Negative (Negative) 09/26/18 00:40 Urine Bilirubin Negative (Negative) 09/26/18 00:40 Urine Urobilinogen Negative (Negative) 09/26/18 00:40 Ur Leukocyte Esterase Negative (Negative) 09/26/18 00:40 Code Status & VTE Plan Code Status Full code VTE Prophylaxis Plan VTE Prophylaxis will be ordered: Yes (1) Cirrhosis Ascites presence: unspecified Hepatic cirrhosis type: unspecified hepatic cirrhosis Qualified Code(s): K74.60 - Unspecified cirrhosis of liver (2) Ascites Ascites type: other type Qualified Code(s): R18.8 - Other ascites
[2018-09-26 06:41] LABS: Basophils # (auto) 0.01 K/uL (0-0.2); Basophils % (auto) 0.2 %; Eosinophils # (auto) 0.18 K/uL (0-0.5); Eosinophils % (auto) 3.5 %; Hematocrit (blood only) 37.5 % (42-52); Hemoglobin 12.4 g/dL (14.0-18.0); Immature Granulocytes # (auto) 0.03 K/uL (0.00-0.02); Immature Granulocytes % (auto) 0.6 %; Lymphocytes # (auto) 0.73 K/uL (1.2-3.4); Mean Corpuscular Hgb Conc 33.1 g/dL (32-36); Mean Corpuscular Volume 92.4 fL (80-100); Mean Platelet Volume 10.8 fL (7.4-10.4); Monocytes # (auto) 0.75 K/uL (0.11-0.59); Monocytes % (auto) 14.4 %; Neutrophils # (auto) 3.51 K/uL (1.4-6.5); Neutrophils % (auto) 67.3 %; Platelet Count 227 K/uL (130-400); RDW Coefficient of Variation 16.5 % (11.5-14.5); RDW Standard Deviation 55.6 fL (36.4-46.3); Red Blood Count 4.06 M/uL (4.7-6.1); White Blood Count 5.21 K/uL (4.8-10.8)
[2018-09-26] MEDS: FENOFIBRATE - ORDER AWAITING ACTION SCH ×2 (07:24→15:34)
[2018-09-26 07:28] LABS: Albumin Globulin Ratio 0.7 (0.9-2); Albumin Level 2.5 gm/dl (3.4-5.0); BUN Creatinine Ratio 15.9 (10-20); Bilirubin,Total 0.8 mg/dl (0.2-1); Calcium 8.7 mg/dl (8.5-10.1); Creatinine Clr Calc Pharmacy 36.7 ml/min; Est GFR (African American) 31.8; Est GFR (Non-African American) 27.4; Globulin 3.8 gm/dl (2.5-4.0); Magnesium 1.8 mg/dl (1.8-2.4); Potassium 4.7 mmol/L (3.5-5.1); Total Protein 6.3 gm/dl (6.4-8.2)
[2018-09-26] MEDS ORDERED: INSULIN HUMAN 70% NPH/30% REGULAR SQ SCH ×2 (07:30→16:30)
[2018-09-26] MEDS: FERROUS SULFATE 325 MG TAB PO SCH ×2 (07:50→17:54)
[2018-09-26] MEDS: INSULIN ASPART 100 UNITS/ML 3 ML PEN SC SCH ×3 (07:52→17:52)
[2018-09-26] MEDS ORDERED: RIFAXIMIN 550 MG TABLET PO SCH (09:00)
[2018-09-26] MEDS ORDERED: GABAPENTIN 600 MG TAB PO SCH ×2 (09:00→16:30)
[2018-09-26] MEDS ORDERED: PANTOprazole 40 MG TAB PO SCH (09:00)
[2018-09-26] MEDS ORDERED: SPIRONOLACTONE 25 MG TAB PO SCH (09:00)
[2018-09-26] MEDS ORDERED: MULTIVITAMIN TAB PO SCH ×2 (09:00)
[2018-09-26] MEDS ORDERED: FUROSEMIDE 40 MG TAB PO SCH (09:00)
[2018-09-26] MEDS ORDERED: LACTULOSE SYRUP 10 GM/15 ML BTL 473 ML PO SCH (09:00)
[2018-09-26] MEDS ORDERED: CIPROFLOXACIN 500 MG TAB PO SCH (09:00)
[2018-09-26] MEDS ORDERED: NADOLOL 40 MG TAB PO SCH (09:00)
[2018-09-26] MEDS ORDERED: ALBUMIN 25% 50 ML IV SCH ×4 (10:00→15:00)
--- NOTE | 2018-09-26 12:27 | Nephrology Consultation ---
Date of Consultation September 26, 2018 Assessment & Plan (1) Acute kidney injury superimposed on CKD: -- Baseline creatinine has been ~ 2.0. CKD attributed to microvascular disease and DM -- Urine sediment is acellular. Urinalysis is negative for protein -- Will order FeNa -- Will consider renal US if kidney function fails to stabilize / improve -- Clinically suspect impaired renal perfusion on the basis of tense abdominal ascites -- Patient is scheduled for paracentesis at 11 am today. Will provide Albumin 25g IV q 8 hrs x 3 doses, then stop -- As noted in the outpatient records, patient is a poor candidate for IHD unless liver transplant is planned. He has refused preparation for IHD in the past (2) Ascites: -- Will provide SPA as outlined above. Paracentesis scheduled for 11 am today -- Recommend sending sample for WBC#, GS, C&S (3) Encephalopathy, hepatic: -- Lactulose and Xifaxan as per GI (4) Cirrhosis: -- Due to AREVALO -- Not a transplant candidate (age?), not a TIPS candidate due to encephalopathy (5) Dementia: History of Present Illness Reason for Consultation: Acute on CKD Attending Physician: Juno Gallegos MD History of Present Illness Mr. Ceron is a 73 year old white male who is seen at the request of Dr. Gallegos for evaluation of acute on CKD. Medical records in the EMR were reviewed today and are summarized as follows: Mr. Ceron has cirrhosis due to AREVALO. He was diagnosed [place] [address] findings. His clinical course has been complicated by encephalopathy treated w/ lactulose and Xifaxan, esophageal varicies treated w/ Nadolol, and recurrent ascites managed w/ Lasix and Aldactone. He has stage III CKD w/ baseline creatinine 2.0. His Elevator Service Technician is Dr. Villa. Previous evaluation revealed a benign urine sediment, UPCR 0.2 and US negative for obstruction. CKD was attributed to DM and microvascular disease. Mr. Ceron medical history is also significant for AODM, peripheral neuropathy, OA, PVD and chronic atrial fibrillation. Mr. Ceron has suffered from recurrent ascites and a decline in his functional status. He is not a candidate for liver transplantation (age?), he is not a candidate for TIPS due to h/o encephalopathy. He is currently managed with periodic paracentesis performed as an outpatient. Mr. Ceron required paracentesis 07/17/18, 08/16/18 and 09/10/18. Each time ~ 8 L volume was removed. Over the last several days Mr. Ceron has developed tense abdominal ascites. This has been associated w/ progressive dyspnea and LE swelling. In the ED creatinine was elevated at 2.4. Patient has been admitted for paracentesis and monitoring of kidney function. Outpatient records indicate that the patient's family is aware of the severity of his medical condition. They have discussed IHD in the past. The patient has refused dialysis due to his multiple medical problems and declining health. Allergies Allergy/AdvReac Type Severity Reaction Status Date / Time No Known Allergies Allergy Unverified 09/26/18 02:39 Home Medications Home Medications Medication Instructions Recorded Confirmed Type Narcan 1 dose INTRANASAL UD PRN 08/15/18 09/26/18 History Novolin 70/30 U-100 Insulin 90 unit SUBCUT HS 08/15/18 09/26/18 History Novolin 70/30 U-100 Insulin 125 unit SUBCUT QAM 08/15/18 09/26/18 History Xarelto 15 mg PO DAILY 08/15/18 09/26/18 History Xifaxan 550 mg PO BID 08/15/18 09/26/18 History aspirin [Aspir-81] 81 mg PO DAILY 08/15/18 09/26/18 History atorvastatin 40 mg PO HS 08/15/18 09/26/18 History fenofibrate 160 mg PO DAILY 08/15/18 09/26/18 History ferrous sulfate [FeroSul] 325 mg PO BID 08/15/18 09/26/18 History furosemide [Lasix] 40 mg PO DAILY 08/15/18 09/26/18 History gabapentin 1,200 mg PO QPM 08/15/18 09/26/18 History hydromorphone [Dilaudid] 2 - 4 mg PO Q4 PRN 08/15/18 09/26/18 History lactulose 15 ml PO DAILY PRN 08/15/18 09/26/18 History multivitamin 1 tab PO DAILY 08/15/18 09/26/18 History nadolol [Corgard] 20 mg PO BID 08/15/18 09/26/18 History pantoprazole [Protonix] 40 mg PO BID 08/15/18 09/26/18 History sertraline [Zoloft] 25 mg PO HS 08/15/18 09/26/18 History spironolactone [Aldactone] 50 mg PO DAILY 08/15/18 09/26/18 History ciprofloxacin HCl 500 mg PO DAILY 90 Days #90 tab 08/18/18 09/26/18 Rx gabapentin 600 mg PO AMHS 09/26/18 09/26/18 History multivitamin [Multiple Vitamins] 1 tab PO DAILY 09/26/18 09/26/18 History Patient History Medical History SBP (spontaneous bacterial peritonitis) Esophageal varices Hemorrhoids Erosive gastritis Depression Diabetic nephropathy CKD (chronic kidney disease), stage III Dementia Splenic infarct Hyperlipidemia Altered mental status (Acute) Cirrhosis (Chronic) Atrial fibrillation (Chronic) Diabetes (Chronic) Hypertension (Chronic) Acute diarrhea Liver failure Renal failure Stroke Social History Preferred Language: Swedish Communication Ability: Effective Strip Deburrer Required: No Beliefs That Will Affect Care: None marital status: Current Living Situation: Spouse current occupational status: retired Other Information That Helps Us Care for You: No Feels Safe at Home: Yes Safety Concerns: Feels Safe At This Time Smoking Status: Former smoker Hx Alcohol Use: No Hx Substance Use: No Review of Systems Constitutional: no fever and no body aches Respiratory: + dyspnea Cardiovascular: + edema; no chest pain Gastrointestinal: + abdominal pain (due to distention) Genitourinary (Male): no difficulty urinating, no urinary hesitancy and no hematuria Physical Exam Vital Signs (Past 24 Hours): Last Vital Signs Temp 36.4 C L 09/26/18 09:59 Pulse 78 09/26/18 10:37 Resp 20 09/26/18 10:37 BP 117/77 09/26/18 10:37 Pulse Ox 96 09/26/18 09:59 Constitutional: + ill appearing Eyes: PERRL Neck: trachea midline, no thyromegaly Respiratory: normal respiratory effort, lungs clear to auscultation (poor inspiratory effort) Cardiovascular: Rate/Rhythm: + abnormal rate and + abnormal rhythm Gastrointestinal (Abdomen): Inspection/Auscultation: + hypoactive bowel sounds Percussion/Palpation: + fluid wave and + abdomen firm Neurologic: moves all extremities, awake and + confused Results & Data Laboratory Results Laboratory Tests 09/26/18 09/26/1819 00:40 06:17 06:17 WBC 5.21 Hgb 12.4 L Hct 37.5 L Plt Count 227 Sodium 136 Potassium 4.7 Chloride 101 Carbon Dioxide 30 BUN 36 H Creatinine 2.28 H Glucose 274 H Calcium 8.7 Magnesium 1.8 Total Bilirubin 0.8 AST 38 H ALT 19 Alkaline Phosphatase 48 Ammonia Albumin 2.5 L Urine Color Dark Yellow Urine Appearance Clear Urine pH 5.0 Ur Specific [place] 1.021 Urine Protein Negative Urine Glucose (UA) 2+ H Urine Ketones Negative Urine Blood Negative Urine Nitrite Negative Urine Bilirubin Negative Urine Urobilinogen Negative 09/26/18 06:17 WBC Hgb Hct Plt Count Sodium Potassium Chloride Carbon Dioxide BUN Creatinine Glucose Calcium Magnesium Total Bilirubin AST ALT Alkaline Phosphatase Ammonia 22.0 Albumin Urine Color Urine Appearance Urine pH Ur Specific [place] Urine Protein Urine Glucose (UA) Urine Ketones Urine Blood Urine Nitrite Urine Bilirubin Urine Urobilinogen (1) Ascites Ascites type: other type Qualified Code(s): R18.8 - Other ascites (2) Cirrhosis Ascites presence: unspecified Hepatic cirrhosis type: unspecified hepatic cirrhosis Qualified Code(s): K74.60 - Unspecified cirrhosis of liver
--- NOTE | 2018-09-26 13:32 | Ultrasound Report ---
US paracentesis abd w/image CLINICAL HISTORY: 73 years-old Male with ascites, r/o sbp. Recurrent ascites COMPARISON: Ultrasound guided paracentesis 09/10/2018 PROCEDURE: The procedure was explained to the patient in the care including the benefits and possible risks/complications. The patient gave verbal understanding and written consent was obtained. A time -out was performed prior to the start of the procedure. The patient was placed on the ultrasound table in the supine position. Using ultrasound guidance, an appropriate procedure site in the right lower quadrant abdomen was marked. This area was then prepped and draped in the usual sterile fashion. Local anesthesia was achieved within 1% lidocaine. [facility] was then inserted. Approximately 11 liters of clear, yellowish fluid was remove d and 1 L was sent to the lab for analysis. The catheter was removed and external pressure was held to achieve hemostasis. A sterile dressing was applied to the procedure site. The patient tolerated the procedure well without immediate complicati ons. IMPRESSION: Successful ultrasound-guided paracentesis with removal of 11 L ascitic fluid. The above report was generated using voice recognition software. It may contain grammatical, syntax o r spelling errors. Electronically signed by: Ja Callaway M.D. 09/26/2018 1:31 PM
[2018-09-26 13:44] LABS: Appearance Peritoneal Fluid CLEAR; Color Peritoneal Fluid PALE YELLOW; Mononuclear WBC Peritoneal 88.2 %; Polynuclear WBC Peritoneal 11.8 %; RBC Peritoneal Fluid (A) < 3000 /uL; WBC Peritoneal Fluid (A) 73 /ul (0-300)
[2018-09-26] MEDS ORDERED: SODIUM CHLORIDE 0.9% 500 ML IV STA (15:19)
[2018-09-26 15:29] LABS: Albumin Peritoneal Fluid 0.6 g/dl; Glucose Peritoneal Fluid 283 mg/dl; Lipase Peritoneal Fluid 52 U/L
[2018-09-26 15:33] LABS: Amylase Peritoneal Fluid 6 U/L; LDH Peritoneal Fluid 62 U/L; Total Protein Peritoneal Fluid 1.1 g/dl; Triglyceride Peritoneal Fluid 28 mg/dl
--- NOTE | 2018-09-26 17:38 | Discharge Summary ---
Date of Service September 26, 2018 Admission HPI Per Admitting Provider The patient is a 73-year-old male with a past medical history including hepatic encephalopathy, ascites, SBP, esophageal varices, erosive gastritis, cirrhosis, dementia, diabetes mellitus insulin requiring, atrial fibrillation on chronic Xarelto, who presents to the emergency department with reaccumulation of ascites and worsening abdominal distention over the past 2 weeks since his last paracentesis by radiology. Family questions with his mental status at this point also, as he appears to them to be a bit more lethargic, but is also not sleeping well due to the pressure of the ascites. He has no other acute co mplaints suggestive of illness as far as change in bowel habits, urinary habits or signs of upper respiratory or lower respiratory infection. Admission Exam Per Admitting Provider The patient is awake, alert and oriented 3, although answers are slow. Normocephalic and atraumatic, lying in bed and in no acute distress. HEENT--PERRL, EOMI, mucous membranes and oropharynx normal. Neck--supple. No JVD. No bruits. Thyroid normal, trachea midline, no adenopathy. Heart--normal S1 and S2. No murmurs, rubs or gallops. Lungs--clear bilaterally, no respiratory distress, no accessory muscle use. Abdomen--normal bowel sounds. Distended, but nontender. Moderately firm. Extremities--no cyanosis or clubbing. Bilateral pretibial 2+ pitting edema. Dermatologic--normal skin turgor, normal color, no abnormal lymph nodes, no rash. Neurologic--cranial nerves II through XII grossly intact. Rheumatologic--limited exam Psychiatric--normal affect. Principal Diagnosis Ascites Discharge Exam Constitutional + ill appearing Respiratory normal respiratory effort, lungs clear to auscultation Cardiovascular Rate/Rhythm: regular rate; + abnormal rhythm Vessels: radial pulses present Extremities: no calf tenderness Gastrointestinal (Abdomen) Inspection/Auscultation: + abdomen distended (improved post paracentesis) Percussion/Palpation: abdomen soft; abdomen nontender, no guarding and abdomen not rigid Neurologic moves all extremities and awake Discharge Data Allergies Allergy/AdvReac Type Severity Reaction Status Date / Time No Known Allergies Allergy Unverified 09/26/18 02:39 Consultations 09/26/18 02:01 ED Decision to Admit Stat 09/26/18 04:50 Consult Case Management - Discharge Planning Routine 09/26/18 05:47 Consult Gastroenterology Routine Consult Nephrology Routine Ordered Studies 09/26/18 08:48 US paracentesis abd w/image Routine Hospital Course (1) Ascites: Mr. Ceron is a 73-year-old male with a past medical history including hepatic encephalopathy, ascites, SBP in July, esophageal varices, erosive gastritis, cirrhosis secondary to AREVALO, dementia, diabetes mellitus insulin requiring, atrial fibrillation on chronic Xarelto, who presents to the emergency department with reaccumulation of ascites and worsening abdominal distention over the past 2 weeks since his last paracentesis by radiology. -aspirin and xarelto held, and patient received vitamin K to reverse INR of 2 -he underwent paracentesis on 09/26/2018 with removal of 11L of fluid. Fluid cytology confirms that it is not infected, with a WCC of 73 -patient seems to be accumulating fluid more rapidly than before despite treatment with diuretics, may require scheduled paracenteses in the future -pt was seen by nephrology and received IV albumin prior to paracentesis -BP dropped to 70s/40s after paracentesis - pt reported feeling dizzy. This corrected w/a 500mL bolus of NS and laying the patient flat. He was later able to ambulate around his room without difficulty Cirrhosis -pt is not a transplant candidate due to significant comorbidities. Also not a candidate for TIPS given hepatic encephalopathy -follows w/GI, f/u appointment made CKD stage 3 -creatinine 2.28 on admission, b/l appears to be 2 -nephrology consulted: -> possibly secondary to impaired renal perfusion secondary to ascites -> recommend renal US if kidney function fails to stabilize / improve -recheck of BMP ordered on 09/28 to ensure it remains stable No changes were made to his medications. He was discharged home with this family, after being observed post-paracentesis for several hours. His daughter in law is interested in home hospice services - will defer to PCP. (2) Cirrhosis: (3) Hyperglycemia due to type 2 diabetes mellitus: (4) Encephalopathy, hepatic: (5) Esophageal varices: (6) Diabetic neuropathy: (7) CKD (chronic kidney disease), stage III: (8) Hyperlipidemia: (9) Atrial fibrillation: Total Time Total Time Spent Total Time Spent (In Minutes): <30 Discharge Plan Discharge Items Patient Disposition: Home - Self-Care Reason For Visit: HEPATIC ENCEPHALOPATHY, REACCUMULATION OF ASCITES Discharge Diagnosis: Ascites Discharge Goals: Decrease discomfort, Improve disease control and Improve function Activity: Resume your previous activity Non-emergency contact: Primary Care Provider Call non-emergency contact if: you have any medication questions, your symptoms worsen, you have a fever and your temperature is above 101 Follow-up/Referrals: Rocio Damico MD [Primary Care Provider] - 10/01/18 2:30 am (Follow up appointment scheduled with Dr. Rocio Damico on MondayOctober 01 at 2:30pm. If you have any questions, please call the office at [phone].) Erik Mauro [Physician] - 10/11/18 1:00 pm (Please keep your scheduled appointment at the Gastroenterology Office on October 11 at 1:00pm. It's located at [address] [place] [address], next to [facility] in [place]. Please call the office if you have any questions [phone]) Diet: Regular Addtl Provider Instructions: Mr. Ceron, you were admitted to [facility] due to build up of fluid in your abdomen. You had 11L of fluid drained out, and thankfully this did not show signs of an infection. We recommend you continue taking your medications as prescribed, and please let your doctor know when the fluid starts to build up again, so that they can arrange for you to have it drained. In the future, you may need to have scheduled appointments to have your fluid drained every so often. Please have some blood work checked on Monday (09/28) to ensure that your kidney function is stable. We have also arranged a follow up appointment for you with your primary care provider (see above). If you have a fever, abdominal pain, feel dizzy or lightheaded, please let your doctor know. Prescriptions: Continued gabapentin 600 mg tablet 600 mg PO AMHS RF: 0 multivitamin [Multiple Vitamins] Tablet 1 tab PO DAILY RF: 0 atorvastatin 40 mg tablet 40 mg PO HS RF: 0 aspirin [Aspir-81] 81 mg Tablet,Delayed Release (Dr/Ec) 81 mg PO DAILY RF: 0 ferrous sulfate [FeroSul] 325 mg (65 mg iron) Tablet 325 mg PO BID RF: 0 furosemide [Lasix] 20 mg tablet 40 mg PO DAILY RF: 0 fenofibrate 160 mg tablet 160 mg PO DAILY RF: 0 multivitamin Tablet 1 tab PO DAILY RF: 0 gabapentin 600 mg Tablet 1,200 mg PO QPM RF: 0 Novolin 70/30 U-100 Insulin 100 unit/mL (70-30) suspension 125 unit subcut QAM RF: 0 Novolin 70/30 U-100 Insulin 100 unit/mL (70-30) suspension 90 unit subcut HS RF: 0 nadolol [Corgard] 20 mg tablet 20 mg PO BID RF: 0 pantoprazole [Protonix] 40 mg tablet,delayed release (DR/EC) 40 mg PO BID RF: 0 hydromorphone [Dilaudid] 4 mg tablet 2 - 4 mg PO Q4 PRN (Reason: Pain) RF: 0 sertraline [Zoloft] 50 mg tablet 25 mg PO HS RF: 0 spironolactone [Aldactone] 50 mg tablet 50 mg PO DAILY RF: 0 lactulose 10 gram/15 mL Solution 15 ml PO DAILY PRN (Reason: Constipation) RF: 0 Xifaxan 550 mg Tablet 550 mg PO BID RF: 0 Xarelto 15 mg tablet 15 mg PO DAILY RF: 0 Narcan 4 mg/actuation [place],Non-Aerosol 1 dose Intranasal UD PRN (Reason: TAKE FOR DRUG OVERDOSE) RF: 0 ciprofloxacin HCl 500 mg tablet 500 mg PO DAILY 90 Days Qty: 90 RF: 1 Stand-Alone Forms: Call Back Authorization, [facility] Discharge Orders: Discharge Order (Routine); Ordered 09/26/18 Ordered By: Benitez Callaway Admission Data Admit Date/Time: 09/26/18 02:45 Attending Provider: Juno Gallegos Admit Provider: Juno Gallegos Primary Care Provider: Rocio Damico Other Providers: Juno Gallegos ; Jordan King ; Clay Villa Service: Telemetry Medical Other Interventions: Discharge Summary Assessment (RN) Last Done: 09/26/18 18:12 Supervising Physician Co-Signing Physician Notes I personally examined the patient and verified all bird points of history and exam, discussed case, and agree with decision making with Dr Martínez. feeling better belly feels better. no new complaints. extensive discussion with pt and family answered all questions to the best of my ability. vitals noted nad breathing unlabored no pallor or icterus. abd soft nd nt cirhosis w ascites - now improved s/p paracentesis. stable for home (walked after resting a few hours - no symptoms, BP stayed reasonable). no SBP findings . close outpt f/u. Resident Activity Tracking Resident Involvement: Resident Care Provided Care Provided: Adult Hospital Medicine
--- NOTE | 2018-09-26 19:18 | Consultation Report ---
DATE OF CONSULTATION: 09/26/2018 REASON FOR EVALUATION: End-stage liver disease with ascites. HISTORY OF PRESENT ILLNESS: The patient is a 73-year-old with cirrhosis with end-stage complications. His liver disease is related to nonalcoholic steatohepatitis with risk factors primarily related to metabolic syndrome including diabetes, hypertension, hyperlipidemia, and obesity. The patient's liver complications include ascites, encephalopathy, esophageal varices and renal insufficiency. His main problem is difficult to control ascites. The patient is currently on Lasix and Aldactone daily but continues to accumulate fluid and came in the hospital with massive ascites. He had 11 liters removed today. It appears to be a noninfected transudate. Previously a few months ago he ended up with spontaneous bacterial peritonitis and is on maintenance antibiotics to prevent recurrence. He is getting albumin infusions 25 grams IV every 8 hours x3 to prevent fluid shifts. He is also being followed by Dr. Lopez from nephrology concerning his kidneys. We have been unable to increase the diuretics due to worsening renal insufficiency. The patient was evaluated for liver transplant at [facility], but was rejected due to multiple metabolic abnormalities including diabetes, hypertension, hyperlipidemia, atrial fibrillation and obesity. Since being paracentesed earlier today he is feeling much better and his mental status is clearer. PAST MEDICAL HISTORY: Remarkable for cirrhosis, nonalcoholic steatohepatitis, diabetes, hypertension, hyperlipidemia, renal insufficiency, esophageal varices, splenic infarct, chronic kidney disease. He has had a stroke in the past. MEDICATIONS: Per list. ALLERGIES: None. SOCIAL HISTORY: The patient is and lives with his . He is a former smoker, does not drink any alcohol. REVIEW OF SYSTEMS: Remarkable for weakness, some ankle edema. Remainder is negative. PHYSICAL EXAMINATION: GENERAL: The patient is overweight, in no acute distress. VITAL SIGNS: Normal. He is afebrile currently. He has multiple excoriations on his skin. He has a bandage in the right lower abdomen. ABDOMEN: Soft, is nontender. EXTREMITIES: Trace edema in the lower extremities. NEUROLOGIC: Nonfocal. IMPRESSION: The patient has end-stage liver disease with large volume ascites which was tapped off today. He is getting albumin infusions back to prevent fluid shifts and renal insufficiency worsening. Will continue on appropriate prophylactic Cipro to prevent spontaneous bacterial peritonitis. We will keep him on his current dose of Lasix and Aldactone unless Dr. Lopez feels those should be modified in some way. Will continue to follow the patient during his hospitalization.
[2018-09-26] MEDS ORDERED: ATORVASTATIN 40 MG TAB PO SCH (21:00)
[2018-09-26] MEDS ORDERED: SERTRALINE HCL 50 MG TABLET PO SCH (21:00)
--- NOTE | 2018-09-26 23:29 | Emergency Department Note ---
Entered by Ilan Blanchard acting as a scribe for History of Present Illness General Chief complaint: Abdominal Pain Time Seen by Provider: 09/26/18 00:03 Source: family () and EMS History of Present Illness Onset (ago): day(s) (a few days ago) Location: abdomen Pain Consistency: + constant Quality: + other (pain and fluid) Exacerbated By: + other (sitting up) Associated symptoms: + other (Positive for SOB, white/squires skin, increased thirs t, and a decreased urgency to urinate. ) The patient is a 73 year old male who presents to the emergency department with complaints of constant abdominal pain beginning a few days ago. Per , the patient had a paracentesis done on September 10. She states that the patients abdomen has started to fill with fluid again. Per EMS, the patient has been having abdominal pain that worsens when he sits up. He notes that the patient has also been having SOB, but he reports that the patients abdominal pain is now tolerable. Per , the patients skin has been more white/squires in color, and she states that the patient has had increased thirst but a decreased urgency to urinate. She notes that the patient has a history of renal failure, diabetes, cirrhosis, liver failure, and a previous stroke. She reports that the patient does not drink alcohol. Per EMS, the patient had Afib in the 80s and a blood pressure of 106/82 en route to the emergency department. Home Medications Home Medications Medication Instructions Recorded Confirmed Type Narcan 1 dose INTRANASAL UD PRN 08/15/18 09/26/18 History Novolin 70/30 U-100 Insulin 90 unit SUBCUT HS 08/15/18 09/26/18 History Novolin 70/30 U-100 Insulin 125 unit SUBCUT QAM 08/15/18 09/26/18 History Xarelto 15 mg PO DAILY 08/15/18 09/26/18 History Xifaxan 550 mg PO BID 08/15/18 09/26/18 History aspirin [Aspir-81] 81 mg PO DAILY 08/15/18 09/26/18 History atorvastatin 40 mg PO HS 08/15/18 09/26/18 History fenofibrate 160 mg PO DAILY 08/15/18 09/26/18 History ferrous sulfate [FeroSul] 325 mg PO BID 08/15/18 09/26/18 History furosemide [Lasix] 40 mg PO DAILY 08/15/18 09/26/18 History gabapentin 1,200 mg PO QPM 08/15/18 09/26/18 History hydromorphone [Dilaudid] 2 - 4 mg PO Q4 PRN 08/15/18 09/26/18 History lactulose 15 ml PO DAILY PRN 08/15/18 09/26/18 History multivitamin 1 tab PO DAILY 08/15/18 09/26/18 History nadolol [Corgard] 20 mg PO BID 08/15/18 09/26/18 History pantoprazole [Protonix] 40 mg PO BID 08/15/18 09/26/18 History sertraline [Zoloft] 25 mg PO HS 08/15/18 09/26/18 History spironolactone [Aldactone] 50 mg PO DAILY 08/15/18 09/26/18 History ciprofloxacin HCl 500 mg PO DAILY 90 Days #90 tab 08/18/18 09/26/18 Rx gabapentin 600 mg PO AMHS 09/26/18 09/26/18 History multivitamin [Multiple Vitamins] 1 tab PO DAILY 09/26/18 09/26/18 History Allergies Allergy/AdvReac Type Severity Reaction Status Date / Time No Known Allergies Allergy Unverified 09/26/18 02:39 Past Med/Surg History Medical History SBP (spontaneous bacterial peritonitis) Esophageal varices Hemorrhoids Erosive gastritis Depression Diabetic nephropathy CKD (chronic kidney disease), stage III Dementia Splenic infarct Hyperlipidemia Altered mental status (Acute) Cirrhosis (Chronic) Atrial fibrillation (Chronic) Diabetes (Chronic) Hypertension (Chronic) Acute diarrhea Liver failure Renal failure Stroke Social History Preferred Language: Danish Beliefs That Will Affect Care: None marital status: Current Living Situation: Spouse current occupational status: retired Other Information That Helps Us Care for You: No Feels Safe at Home: Yes Safety Concerns: Feels Safe At This Time Smoking Status: Former smoker Hx Alcohol Use: No Hx Substance Use: No Review of Systems See HPI for pertinent positives & negatives. and A total of 10 systems reviewed and were otherwise negative Physical Exam Vital Signs Vital Signs - 24 hr 09/25/18 23:48 09/26/18 00:04 09/26/18 00:06 Temperature 36.6 C Temperature Source Oral Sepsis Recent Fever Within 48 Hours No Sepsis New/Unexplained Change in Mental Status No Sepsis Action Taken by Nursing No Action Required Pulse Rate 72 76 Pulse Rate [Left Apical] Pulse Rate [Right Finger] Pulse Rate from SpO2 Sensor 80 91 H Pulse Rhythm Irregular Pulse Rhythm [Right Finger] Pulse Strength Normal Pulse Strength [Right Finger] Respiratory Rate 22 Respiratory Effort / Characteristics Non-Labored Respiratory Depth Shallow Respiratory Pattern Regular Blood Pressure 107/94 107/94 Blood Pressure [Left Arm] Blood Pressure [Right Arm] Blood Pressure Mean 98 98 Blood Pressure Mean [Left Arm] Blood Pressure Mean [Right Arm] Blood Pressure Position Lying Blood Pressure Position [Left Arm] Blood Pressure Position [Right Arm] Pulse Oximetry 96 96 96 Pulse Oximetry [Right Index Finger] Oxygen Delivery Method Room Air Oxygen Delivery Method [Right Index Finger] 09/26/18 00:20 09/26/18 00:30 09/26/18 01:00 Temperature Temperature Source Sepsis Recent Fever Within 48 Hours Sepsis New/Unexplained Change in Mental Status Sepsis Action Taken by Nursing Pulse Rate 87 82 Pulse Rate [Left Apical] Pulse Rate [Right Finger] Pulse Rate from SpO2 Sensor 88 81 Pulse Rhythm Pulse Rhythm [Right Finger] Pulse Strength Pulse Strength [Right Finger] Respiratory Rate 20 28 H Respiratory Effort / Characteristics Respiratory Depth Respiratory Pattern Blood Pressure Blood Pressure [Left Arm] Blood Pressure [Right Arm] Blood Pressure Mean Blood Pressure Mean [Left Arm] Blood Pressure Mean [Right Arm] Blood Pressure Position Blood Pressure Position [Left Arm] Blood Pressure Position [Right Arm] Pulse Oximetry 96 97 96 Pulse Oximetry [Right Index Finger] Oxygen Delivery Method Room Air Oxygen Delivery Method [Right Index Finger] 09/26/18 01:30 09/26/18 01:43 09/26/18 01:44 Temperature Temperature Source Sepsis Recent Fever Within 48 Hours Sepsis New/Unexplained Change in Mental Status Sepsis Action Taken by Nursing Pulse Rate 92 H 88 Pulse Rate [Left Apical] 83 Pulse Rate [Right Finger] Pulse Rate from SpO2 Sensor 86 86 Pulse Rhythm Pulse Rhythm [Right Finger] Pulse Strength Pulse Strength [Right Finger] Respiratory Rate 13 16 16 Respiratory Effort / Characteristics Normal for Patient Respiratory Depth Respiratory Pattern Blood Pressure 105/68 Blood Pressure [Left Arm] Blood Pressure [Right Arm] 105/68 Blood Pressure Mean 80 Blood Pressure Mean [Left Arm] Blood Pressure Mean [Right Arm] 80 Blood Pressure Position Blood Pressure Position [Left Arm] Blood Pressure Position [Right Arm] Lying Pulse Oximetry 96 97 96 Pulse Oximetry [Right Index Finger] Oxygen Delivery Method Room Air Oxygen Delivery Method [Right Index Finger] 09/26/18 02:00 09/26/18 02:01 09/26/18 02:30 Temperature Temperature Source Sepsis Recent Fever Within 48 Hours Sepsis New/Unexplained Change in Mental Status Sepsis Action Taken by Nursing Pulse Rate 78 82 85 Pulse Rate [Left Apical] Pulse Rate [Right Finger] Pulse Rate from SpO2 Sensor 89 82 86 Pulse Rhythm Pulse Rhythm [Right Finger] Pulse Strength Pulse Strength [Right Finger] Respiratory Rate 19 23 22 Respiratory Effort / Characteristics Respiratory Depth Respiratory Pattern Blood Pressure 113/77 105/80 Blood Pressure [Left Arm] Blood Pressure [Right Arm] Blood Pressure Mean 89 88 Blood Pressure Mean [Left Arm] Blood Pressure Mean [Right Arm] Blood Pressure Position Blood Pressure Position [Left Arm] Blood Pressure Position [Right Arm] Pulse Oximetry 96 97 97 Pulse Oximetry [Right Index Finger] Oxygen Delivery Method Oxygen Delivery Method [Right Index Finger] 09/26/18 02:31 09/26/18 03:00 09/26/18 03:01 Temperature Temperature Source Sepsis Recent Fever Within 48 Hours Sepsis New/Unexplained Change in Mental Status Sepsis Action Taken by Nursing Pulse Rate 88 90 87 Pulse Rate [Left Apical] Pulse Rate [Right Finger] Pulse Rate from SpO2 Sensor 90 90 88 Pulse Rhythm Pulse Rhythm [Right Finger] Pulse Strength Pulse Strength [Right Finger] Respiratory Rate 19 20 16 Respiratory Effort / Characteristics Respiratory Depth Respiratory Pattern Blood Pressure 137/88 Blood Pressure [Left Arm] Blood Pressure [Right Arm] Blood Pressure Mean 104 Blood Pressure Mean [Left Arm] Blood Pressure Mean [Right Arm] Blood Pressure Position Blood Pressure Position [Left Arm] Blood Pressure Position [Right Arm] Pulse Oximetry 97 98 97 Pulse Oximetry [Right Index Finger] Oxygen Delivery Method Oxygen Delivery Method [Right Index Finger] 09/26/18 03:15 09/26/18 03:25 09/26/18 03:30 Temperature Temperature Source Sepsis Recent Fever Within 48 Hours Sepsis New/Unexplained Change in Mental Status Sepsis Action Taken by Nursing Pulse Rate 78 84 81 Pulse Rate [Left Apical] Pulse Rate [Right Finger] Pulse Rate from SpO2 Sensor 82 79 81 Pulse Rhythm Pulse Rhythm [Right Finger] Pulse Strength Pulse Strength [Right Finger] Respiratory Rate 14 14 18 Respiratory Effort / Characteristics Respiratory Depth Respiratory Pattern Blood Pressure 122/79 Blood Pressure [Left Arm] Blood Pressure [Right Arm] Blood Pressure Mean 93 Blood Pressure Mean [Left Arm] Blood Pressure Mean [Right Arm] Blood Pressure Position Blood Pressure Position [Left Arm] Blood Pressure Position [Right Arm] Pulse Oximetry 97 97 95 Pulse Oximetry [Right Index Finger] Oxygen Delivery Method Oxygen Delivery Method [Right Index Finger] 09/26/18 03:31 09/26/18 04:00 09/26/18 05:10 Temperature 36.8 C 36.8 C Temperature Source Oral Oral Sepsis Recent Fever Within 48 Hours Sepsis New/Unexplained Change in Mental Status Sepsis Action Taken by Nursing Pulse Rate 85 Pulse Rate [Left Apical] Pulse Rate [Right Finger] 86 86 Pulse Rate from SpO2 Sensor 92 H Pulse Rhythm Pulse Rhythm [Right Finger] Pulse Strength Pulse Strength [Right Finger] Respiratory Rate 14 16 16 Respiratory Effort / Characteristics Non-Labored Non-Labored Respiratory Depth Normal Normal Respiratory Pattern Regular Regular Blood Pressure 117/83 Blood Pressure [Left Arm] 127/85 127/85 Blood Pressure [Right Arm] Blood Pressure Mean 94 Blood Pressure Mean [Left Arm] 99 99 Blood Pressure Mean [Right Arm] Blood Pressure Position Blood Pressure Position [Left Arm] Sitting Blood Pressure Position [Right Arm] Pulse Oximetry 96 95 95 Pulse Oximetry [Right Index Finger] 95 95 Oxygen Delivery Method Room Air Room Air Oxygen Delivery Method [Right Index Finger] Room Air Room Air 09/26/18 05:11 09/26/18 07:52 09/26/18 08:00 Temperature 36.6 C Temperature Source Oral Sepsis Recent Fever Within 48 Hours Sepsis New/Unexplained Change in Mental Status Sepsis Action Taken by Nursing Pulse Rate 76 84 Pulse Rate [Left Apical] Pulse Rate [Right Finger] 89 Pulse Rate from SpO2 Sensor Pulse Rhythm Pulse Rhythm [Right Finger] Pulse Strength Pulse Strength [Right Finger] Respiratory Rate 16 Respiratory Effort / Characteristics Respiratory Depth Respiratory Pattern Blood Pressure Blood Pressure [Left Arm] Blood Pressure [Right Arm] 114/79 Blood Pressure Mean Blood Pressure Mean [Left Arm] Blood Pressure Mean [Right Arm] 90 Blood Pressure Position Blood Pressure Position [Left Arm] Blood Pressure Position [Right Arm] Lying Pulse Oximetry 96 Pulse Oximetry [Right Index Finger] Oxygen Delivery Method Room Air Oxygen Delivery Method [Right Index Finger] 09/26/18 09:59 09/26/18 10:37 09/26/18 15:02 Temperature 36.4 C L 36.5 C Temperature Source Oral Oral Sepsis Recent Fever Within 48 Hours Sepsis New/Unexplained Change in Mental Status Sepsis Action Taken by Nursing Pulse Rate Pulse Rate [Left Apical] Pulse Rate [Right Finger] 81 78 89 Pulse Rate from SpO2 Sensor Pulse Rhythm Pulse Rhythm [Right Finger] Regular Pulse Strength Pulse Strength [Right Finger] Normal Respiratory Rate 20 18 Respiratory Effort / Characteristics Respiratory Depth Normal Respiratory Pattern Blood Pressure Blood Pressure [Left Arm] 112/79 117/77 70/47 L Blood Pressure [Right Arm] Blood Pressure Mean Blood Pressure Mean [Left Arm] 90 90 54 Blood Pressure Mean [Right Arm] Blood Pressure Position Blood Pressure Position [Left Arm] Blood Pressure Position [Right Arm] Pulse Oximetry 96 Pulse Oximetry [Right Index Finger] Oxygen Delivery Method Room Air Oxygen Delivery Method [Right Index Finger] 09/26/18 15:45 09/26/18 17:39 09/26/18 18:12 Temperature 36.5 C Temperature Source Sepsis Recent Fever Within 48 Hours Sepsis New/Unexplained Change in Mental Status Sepsis Action Taken by Nursing Pulse Rate Pulse Rate [Left Apical] 83 Pulse Rate [Right Finger] 82 82 Pulse Rate from SpO2 Sensor Pulse Rhythm Pulse Rhythm [Right Finger] Regular Pulse Strength Pulse Strength [Right Finger] Normal Respiratory Rate 16 16 Respiratory Effort / Characteristics Non-Labored Spontaneous Respiratory Depth Normal Respiratory Pattern Regular Blood Pressure Blood Pressure [Left Arm] 105/65 105/65 Blood Pressure [Right Arm] 101/66 101/66 Blood Pressure Mean Blood Pressure Mean [Left Arm] 78 Blood Pressure Mean [Right Arm] 77 Blood Pressure Position Blood Pressure Position [Left Arm] Blood Pressure Position [Right Arm] Pulse Oximetry 96 96 Pulse Oximetry [Right Index Finger] Oxygen Delivery Method Room Air Oxygen Delivery Method [Right Index Finger] HEENT: Head - normocephalic and atraumatic Pupils are equal, round, and reactive to light. Extraocular eye muscles are intact, and sclera are anicteric. Nose - moist nasal mucosa without discharge. Mouth - dry buccal mucosa. Oropharynx is nonerythematous and there is no tonsillar exudate or edema noted. Neck: Supple; no JVD, nuchal rigidity, cervical lymphadenopathy. Heart: Heart is irregular. There is a normal S1 and S2 with no murmurs, clicks, or gallops appreciated. Heart sounds are distant. Lungs: Clear to auscultation bilaterally with no wheezes, rales, or rhonchi. Lung sounds are distant. Abdomen: Soft, completely nontender, with good bowel sounds. There are no palpable pulsatile masses or hepatosplenomegaly. There is no guarding, rigidity, or rebound noted. Extremely distended secondary to ascites. Extremities: No evidence of cyanosis or clubbing. There are easily palpable peripheral pulses. 3+ edema in legs. Skin: Pale, warm and dry with good turgor and no rashes. Course 0008: The patient was evaluated in room C10. A complete history and physical examination were performed. IV lock was established and labs were drawn as above. A twelve-lead EKG was obtained as described above. 0200: Upon reevaluation, the patient is stable. I discussed the results and treatment plan with the patient. He verbalizes understanding and agreement. I discussed the patient's case with DEL Canales. The patient will be evaluated for further management and care. 0205 I rechecked the patient. Answered questions by the family. Spent some time talking to the patient about the importance of close health management and the possibility of having routine paracentesis for increased comfort and quality of life. Consultations Consultation #1: I reviewed the patient's case with DEL Canales. He will evaluate the patient for further management. Time: 02:00 Administered Medications Discontinued Medications Ciprofloxacin (Cipro) 500 mg PO DAILY [place] Stop: 10/26/18 08:59 Last Admin: 09/26/18 07:50 Dose: 500 mg Documented by: [id number] Ferrous Sulfate (Feosol) 325 mg PO BIDM [facility] Stop: 10/26/18 07:59 Last Admin: 09/26/18 17:54 Dose: 325 mg Documented by: [id number] Admin: 09/26/18 07:50 Dose: 325 mg Documented by: [id number] Furosemide (Lasix) 40 mg PO DAILY [place] Stop: 10/26/18 08:59 Last Admin: 09/26/18 07:51 Dose: 40 mg Documented by: [id number] Gabapentin (Neurontin) 1,200 mg PO QDD [place] Stop: 10/26/18 16:29 Last Admin: 09/26/18 17:53 Dose: 1,200 mg Documented by: [id number] Gabapentin (Neurontin) 600 mg PO AMHS [place] Stop: 10/26/18 08:59 Last Admin: 09/26/18 07:51 Dose: 600 mg Documented by: [id number] Phytonadione 5 mg/ Sodium (Chloride) 50.5 mls @ 101 mls/hr IV 0300 ONE Stop: 09/26/18 03:29 Last Infusion: 09/26/18 05:17 Dose: 0 mls/hr Documented by: [id number] Admin: 09/26/18 03:09 Dose: 101 mls/hr Documented by: [id number] Albumin Human (Albumin 25%) 50 mls @ 50 mls/hr IV Q8H [place] Stop: 09/27/18 02:59 Last Infusion: 09/26/18 11:04 Dose: 0 mls/hr Documented by: [id number] Admin: 09/26/18 09:59 Dose: 50 mls/hr Documented by: [id number] Albumin Human (Albumin 25%) 50 mls @ 50 mls/hr IV Q8H [place] Stop: 09/27/18 03:59 Last Infusion: 09/26/18 11:54 Dose: 0 mls/hr Documented by: [id number] Admin: 09/26/18 10:39 Dose: 50 mls/hr Documented by: [id number] Sodium Chloride (Nss) 500 mls @ 999 mls/hr IV .Q31M STA Stop: 09/26/18 15:49 Last Infusion: 09/26/18 16:18 Dose: 999 mls/hr Documented by: [id number] Admin: 09/26/18 15:34 Dose: 999 mls/hr Documented by: [id number] Insulin Aspart (Novolog Flexpen) 0 units SC ACHS [facility] Stop: 10/26/18 07:29 Last Admin: 09/26/18 17:52 Dose: Not Given Documented by: [id number] Cosigned by: [id number] Admin: 09/26/18 12:29 Dose: Not Given Documented by: [id number] Cosigned by: [id number] Admin: 09/26/18 07:52 Dose: 6 units Documented by: [id number] Cosigned by: [id number] Insulin Human Isoph/Insulin Regular (Novolin 70/30 Regular) 45 units SQ QDD [place] Stop: 10/26/18 16:29 Last Admin: 09/26/18 17:51 Dose: 45 units Documented by: [id number] Cosigned by: [id number] Insulin Human Isoph/Insulin Regular (Novolin 70/30 Regular) 60 units SQ QDB [place] Stop: 10/26/18 07:29 Last Admin: 09/26/18 07:52 Dose: 60 units Documented by: [id number] Cosigned by: [id number] Lactulose (Chronulac) 15 gm PO BID [place] Stop: 10/26/18 08:59 Last Admin: 09/26/18 07:50 Dose: 15 gm Documented by: [id number] Miscellaneous (Order Awaiting Action) 1 ea N/A QS [place] Stop: 10/26/18 07:59 Last Admin: 09/26/18 15:34 Dose: Not Given Documented by: [id number] Admin: 09/26/18 07:24 Dose: Not Given Documented by: [id number] Multivitamins (Multivitamin Tab) 1 tab PO DAILY [place] Stop: 10/26/18 08:59 Last Admin: 09/26/18 07:51 Dose: 1 tab Documented by: [id number] Nadolol (Corgard) 20 mg PO BID [place] Stop: 10/26/18 08:59 Last Admin: 09/26/18 07:50 Dose: 20 mg Documented by: [id number] Pantoprazole Sodium (Protonix) 40 mg PO BID [place] Stop: 10/26/18 08:59 Last Admin: 09/26/18 07:51 Dose: 40 mg Documented by: [id number] Rifaximin (Xifaxan) 550 mg PO BID [place] Stop: 10/26/18 08:59 Last Admin: 09/26/18 07:51 Dose: 550 mg Documented by: [id number] Spironolactone (Aldactone) 50 mg PO DAILY [place] Stop: 10/26/18 08:59 Last Admin: 09/26/18 07:50 Dose: 50 mg Documented by: [id number] Medical Decision Making Differential Diagnosis The patient is a 73 year old male who presents to the emergency department with complaints of constant abdominal pain beginning a few days ago. Differential diagnoses include: hyperglycemia, hepatic encephalopathy, acute renal failure, SBP, and enlarging ascites. Medical Records Attestation: I reviewed the patient's medical records. Home Medications Current Medication List: was personally reviewed by me Laboratory Data Attestation: I reviewed the patient's lab results. Result diagrams: 09/26/18 06:17 09/26/18 06:17 Lab Results 04/02/19 04/02/19 04/02/19 Range/Units 23:25 23:25 23:25 WBC 5.98 (4.8-10.8) K/uL RBC 4.25 L (4.7-6.1) M/uL Hgb 13.0 L (14.0-18.0) g/dL Hct 39.3 L (42-52) % MCV 92.5 (80-100) fL MCH 30.6 (25-34) pg MCHC 33.1 (32-36) g/dL RDW Std Deviation 55.4 H (36.4-46.3) fL RDW Coeff of Nora 16.5 H (11.5-14.5) % Plt Count 280 (130-400) K/uL MPV 12.0 H (7.4-10.4) fL Immature Gran % (Auto) 0.8 % Neut % (Auto) 73.1 % Lymph % (Auto) 17.2 % [place] % (Auto) 6.4 % Eos % (Auto) 2.2 % Baso % (Auto) 0.3 % Immature Gran # (Auto) 0.05 H (0.00-0.02) K/uL Neut # (Auto) 4.37 (1.4-6.5) K/uL Lymph # (Auto) 1.03 L (1.2-3.4) K/uL [place] # (Auto) 0.38 (0.11-0.59) K/uL Eos # (Auto) 0.13 (0-0.5) K/uL Baso # (Auto) 0.02 (0-0.2) K/uL PT 19.6 H (9.0-12.0) Seconds INR 2.0 H (0.9-1.1) Sodium 137 (136-145) mmol/L Potassium 4.5 (3.5-5.1) mmol/L Chloride 98 (98-107) mmol/L Carbon Dioxide 31 (21-32) mmol/L Anion Gap 8.0 (3-11) BUN 38 H (7-18) mg/dl Creatinine 2.46 H (0.6-1.4) mg/dl Est Cr Clr Drug Dosing 34.2 ml/min Est GFR ( Amer) 29.0 Est GFR (Non-Af Amer) 25.0 BUN/Creatinine Ratio 15.6 (10-20) Glucose 364 H* (70-99) mg/dl POC Glucose (70-99) Calcium 8.9 (8.5-10.1) mg/dl Magnesium (1.8-2.4) mg/dl Total Bilirubin 0.7 (0.2-1) mg/dl AST 46 H (15-37) U/L ALT 20 (12-78) U/L Alkaline Phosphatase 55 (45-117) U/L Ammonia (11-32) umol/L Total Protein 6.9 (6.4-8.2) gm/dl Albumin 2.8 L (3.4-5.0) gm/dl Globulin 4.1 H (2.5-4.0) gm/dl Albumin/Globulin Ratio 0.7 L (0.9-2) Lipase 148 (73-393) U/L Beta-Hydroxybutyric Acd 1.07 (0.2-2.81) mg/dl Specimen Hemolysis Urine Color Urine Appearance (Clear) Urine pH (4.5-7.5) POC Urine pH (4.5-7.5) Ur Specific [place] (1.000-1.030) Urine Protein (Negative) POC Urine Protein (Negative) Urine Glucose (UA) (Negative) POC Ur Glucose (UA) (Normal) Urine Ketones (Negative) POC Urine Ketones (Negative) Urine Blood (Negative) POC Urine Blood (Negative) Urine Nitrite (Negative) POC Urine Nitrite (Negative) Urine Bilirubin (Negative) POC Urine Bilirubin (Negative) Urine Urobilinogen (Negative) POC Urine Urobilinogen (Normal) Ur Leukocyte Esterase (Negative) POC U Leukocyte Esteras (Negative) Peritoneal Color Peritoneal Appearance Peritoneal WBC (0-300) /ul Peritoneal RBC /uL Mononuclear WBCs % % Polynuclear WBCs % % Peritoneal Tot Protein g/dl Peritoneal Albumin g/dl Peritoneal LDH U/L Peritoneal Glucose mg/dl Peritoneal Amylase U/L Peritoneal Lipase U/L Peritoneal Triglycerid mg/dl 09/26/18 09/26/18 09/26/18 Range/Units 00:40 00:40 00:52 WBC (4.8-10.8) K/uL RBC (4.7-6.1) M/uL Hgb (14.0-18.0) g/dL Hct (42-52) % MCV (80-100) fL MCH (25-34) pg MCHC (32-36) g/dL RDW Std Deviation (36.4-46.3) fL RDW Coeff of Nora (11.5-14.5) % Plt Count (130-400) K/uL MPV (7.4-10.4) fL Immature Gran % (Auto) % Neut % (Auto) % Lymph % (Auto) % [place] % (Auto) % Eos % (Auto) % Baso % (Auto) % Immature Gran # (Auto) (0.00-0.02) K/uL Neut # (Auto) (1.4-6.5) K/uL Lymph # (Auto) (1.2-3.4) K/uL [place] # (Auto) (0.11-0.59) K/uL Eos # (Auto) (0-0.5) K/uL Baso # (Auto) (0-0.2) K/uL PT (9.0-12.0) Seconds INR (0.9-1.1) Sodium (136-145) mmol/L Potassium (3.5-5.1) mmol/L Chloride (98-107) mmol/L Carbon Dioxide (21-32) mmol/L Anion Gap (3-11) BUN (7-18) mg/dl Creatinine (0.6-1.4) mg/dl Est Cr Clr Drug Dosing ml/min Est GFR ( Amer) Est GFR (Non-Af Amer) BUN/Creatinine Ratio (10-20) Glucose (70-99) mg/dl POC Glucose 301 H (70-99) Calcium (8.5-10.1) mg/dl Magnesium (1.8-2.4) mg/dl Total Bilirubin (0.2-1) mg/dl AST (15-37) U/L ALT (12-78) U/L Alkaline Phosphatase (45-117) U/L Ammonia 37.0 H (11-32) umol/L Total Protein (6.4-8.2) gm/dl Albumin (3.4-5.0) gm/dl Globulin (2.5-4.0) gm/dl Albumin/Globulin Ratio (0.9-2) Lipase (73-393) U/L Beta-Hydroxybutyric Acd (0.2-2.81) mg/dl Specimen Hemolysis Urine Color Dark Yellow Urine Appearance Clear (Clear) Urine pH 5.0 (4.5-7.5) POC Urine pH (4.5-7.5) Ur Specific [place] 1.021 (1.000-1.030) Urine Protein Negative (Negative) POC Urine Protein (Negative) Urine Glucose (UA) 2+ H (Negative) POC Ur Glucose (UA) (Normal) Urine Ketones Negative (Negative) POC Urine Ketones (Negative) Urine Blood Negative (Negative) POC Urine Blood (Negative) Urine Nitrite Negative (Negative) POC Urine Nitrite (Negative) Urine Bilirubin Negative (Negative) POC Urine Bilirubin (Negative) Urine Urobilinogen Negative (Negative) POC Urine Urobilinogen (Normal) Ur Leukocyte Esterase Negative (Negative) POC U Leukocyte Esteras (Negative) Peritoneal Color Peritoneal Appearance Peritoneal WBC (0-300) /ul Peritoneal RBC /uL Mononuclear WBCs % % Polynuclear WBCs % % Peritoneal Tot Protein g/dl Peritoneal Albumin g/dl Peritoneal LDH U/L Peritoneal Glucose mg/dl Peritoneal Amylase U/L Peritoneal Lipase U/L Peritoneal Triglycerid mg/dl 09/26/18 09/26/18 09/26/18 Range/Units 05:45 06:17 06:17 WBC 5.21 (4.8-10.8) K/uL RBC 4.06 L (4.7-6.1) M/uL Hgb 12.4 L (14.0-18.0) g/dL Hct 37.5 L (42-52) % MCV 92.4 (80-100) fL MCH 30.5 (25-34) pg MCHC 33.1 (32-36) g/dL RDW Std Deviation 55.6 H (36.4-46.3) fL RDW Coeff of Nora 16.5 H (11.5-14.5) % Plt Count 227 (130-400) K/uL MPV 10.8 H (7.4-10.4) fL Immature Gran % (Auto) 0.6 % Neut % (Auto) 67.3 % Lymph % (Auto) 14.0 % [place] % (Auto) 14.4 % Eos % (Auto) 3.5 % Baso % (Auto) 0.2 % Immature Gran # (Auto) 0.03 H (0.00-0.02) K/uL Neut # (Auto) 3.51 (1.4-6.5) K/uL Lymph # (Auto) 0.73 L (1.2-3.4) K/uL [place] # (Auto) 0.75 H (0.11-0.59) K/uL Eos # (Auto) 0.18 (0-0.5) K/uL Baso # (Auto) 0.01 (0-0.2) K/uL PT (9.0-12.0) Seconds INR (0.9-1.1) Sodium 136 (136-145) mmol/L Potassium 4.7 (3.5-5.1) mmol/L Chloride 101 (98-107) mmol/L Carbon Dioxide 30 (21-32) mmol/L Anion Gap 5.0 (3-11) BUN 36 H (7-18) mg/dl Creatinine 2.28 H (0.6-1.4) mg/dl Est Cr Clr Drug Dosing 36.7 ml/min Est GFR ( Amer) 31.8 Est GFR (Non-Af Amer) 27.4 BUN/Creatinine Ratio 15.9 (10-20) Glucose 274 H (70-99) mg/dl POC Glucose 292 H (70-99) Calcium 8.7 (8.5-10.1) mg/dl Magnesium 1.8 (1.8-2.4) mg/dl Total Bilirubin 0.8 (0.2-1) mg/dl AST 38 H (15-37) U/L ALT 19 (12-78) U/L Alkaline Phosphatase 48 (45-117) U/L Ammonia (11-32) umol/L Total Protein 6.3 L (6.4-8.2) gm/dl Albumin 2.5 L (3.4-5.0) gm/dl Globulin 3.8 (2.5-4.0) gm/dl Albumin/Globulin Ratio 0.7 L (0.9-2) Lipase (73-393) U/L Beta-Hydroxybutyric Acd (0.2-2.81) mg/dl Specimen Hemolysis Urine Color Urine Appearance (Clear) Urine pH (4.5-7.5) POC Urine pH (4.5-7.5) Ur Specific [place] (1.000-1.030) Urine Protein (Negative) POC Urine Protein (Negative) Urine Glucose (UA) (Negative) POC Ur Glucose (UA) (Normal) Urine Ketones (Negative) POC Urine Ketones (Negative) Urine Blood (Negative) POC Urine Blood (Negative) Urine Nitrite (Negative) POC Urine Nitrite (Negative) Urine Bilirubin (Negative) POC Urine Bilirubin (Negative) Urine Urobilinogen (Negative) POC Urine Urobilinogen (Normal) Ur Leukocyte Esterase (Negative) POC U Leukocyte Esteras (Negative) Peritoneal Color Peritoneal Appearance Peritoneal WBC (0-300) /ul Peritoneal RBC /uL Mononuclear WBCs % % Polynuclear WBCs % % Peritoneal Tot Protein g/dl Peritoneal Albumin g/dl Peritoneal LDH U/L Peritoneal Glucose mg/dl Peritoneal Amylase U/L Peritoneal Lipase U/L Peritoneal Triglycerid mg/dl 09/26/18 09/26/18 09/26/18 Range/Units 06:17 12:28 17:06 WBC (4.8-10.8) K/uL RBC (4.7-6.1) M/uL Hgb (14.0-18.0) g/dL Hct (42-52) % MCV (80-100) fL MCH (25-34) pg MCHC (32-36) g/dL RDW Std Deviation (36.4-46.3) fL RDW Coeff of Nora (11.5-14.5) % Plt Count (130-400) K/uL MPV (7.4-10.4) fL Immature Gran % (Auto) % Neut % (Auto) % Lymph % (Auto) % [place] % (Auto) % Eos % (Auto) % Baso % (Auto) % Immature Gran # (Auto) (0.00-0.02) K/uL Neut # (Auto) (1.4-6.5) K/uL Lymph # (Auto) (1.2-3.4) K/uL [place] # (Auto) (0.11-0.59) K/uL Eos # (Auto) (0-0.5) K/uL Baso # (Auto) (0-0.2) K/uL PT (9.0-12.0) Seconds INR (0.9-1.1) Sodium (136-145) mmol/L Potassium (3.5-5.1) mmol/L Chloride (98-107) mmol/L Carbon Dioxide (21-32) mmol/L Anion Gap (3-11) BUN (7-18) mg/dl Creatinine (0.6-1.4) mg/dl Est Cr Clr Drug Dosing ml/min Est GFR ( Amer) Est GFR (Non-Af Amer) BUN/Creatinine Ratio (10-20) Glucose (70-99) mg/dl POC Glucose 146 H 99 (70-99) Calcium (8.5-10.1) mg/dl Magnesium (1.8-2.4) mg/dl Total Bilirubin (0.2-1) mg/dl AST (15-37) U/L ALT (12-78) U/L Alkaline Phosphatase (45-117) U/L Ammonia 22.0 (11-32) umol/L Total Protein (6.4-8.2) gm/dl Albumin (3.4-5.0) gm/dl Globulin (2.5-4.0) gm/dl Albumin/Globulin Ratio (0.9-2) Lipase (73-393) U/L Beta-Hydroxybutyric Acd (0.2-2.81) mg/dl Specimen Hemolysis Urine Color Urine Appearance (Clear) Urine pH (4.5-7.5) POC Urine pH (4.5-7.5) Ur Specific [place] (1.000-1.030) Urine Protein (Negative) POC Urine Protein (Negative) Urine Glucose (UA) (Negative) POC Ur Glucose (UA) (Normal) Urine Ketones (Negative) POC Urine Ketones (Negative) Urine Blood (Negative) POC Urine Blood (Negative) Urine Nitrite (Negative) POC Urine Nitrite (Negative) Urine Bilirubin (Negative) POC Urine Bilirubin (Negative) Urine Urobilinogen (Negative) POC Urine Urobilinogen (Normal) Ur Leukocyte Esterase (Negative) POC U Leukocyte Esteras (Negative) Peritoneal Color Peritoneal Appearance Peritoneal WBC (0-300) /ul Peritoneal RBC /uL Mononuclear WBCs % % Polynuclear WBCs % % Peritoneal Tot Protein g/dl Peritoneal Albumin g/dl Peritoneal LDH U/L Peritoneal Glucose mg/dl Peritoneal Amylase U/L Peritoneal Lipase U/L Peritoneal Triglycerid mg/dl 09/26/18 09/26/18 Range/Units Unknown Unknown WBC (4.8-10.8) K/uL RBC (4.7-6.1) M/uL Hgb (14.0-18.0) g/dL Hct (42-52) % MCV (80-100) fL MCH (25-34) pg MCHC (32-36) g/dL RDW Std Deviation (36.4-46.3) fL RDW Coeff of Nora (11.5-14.5) % Plt Count (130-400) K/uL MPV (7.4-10.4) fL Immature Gran % (Auto) % Neut % (Auto) % Lymph % (Auto) % [place] % (Auto) % Eos % (Auto) % Baso % (Auto) % Immature Gran # (Auto) (0.00-0.02) K/uL Neut # (Auto) (1.4-6.5) K/uL Lymph # (Auto) (1.2-3.4) K/uL [place] # (Auto) (0.11-0.59) K/uL Eos # (Auto) (0-0.5) K/uL Baso # (Auto) (0-0.2) K/uL PT (9.0-12.0) Seconds INR (0.9-1.1) Sodium (136-145) mmol/L Potassium (3.5-5.1) mmol/L Chloride (98-107) mmol/L Carbon Dioxide (21-32) mmol/L Anion Gap (3-11) BUN (7-18) mg/dl Creatinine (0.6-1.4) mg/dl Est Cr Clr Drug Dosing ml/min Est GFR ( Amer) Est GFR (Non-Af Amer) BUN/Creatinine Ratio (10-20) Glucose (70-99) mg/dl POC Glucose (70-99) Calcium (8.5-10.1) mg/dl Magnesium (1.8-2.4) mg/dl Total Bilirubin (0.2-1) mg/dl AST (15-37) U/L ALT (12-78) U/L Alkaline Phosphatase (45-117) U/L Ammonia (11-32) umol/L Total Protein (6.4-8.2) gm/dl Albumin (3.4-5.0) gm/dl Globulin (2.5-4.0) gm/dl Albumin/Globulin Ratio (0.9-2) Lipase (73-393) U/L Beta-Hydroxybutyric Acd (0.2-2.81) mg/dl Specimen Hemolysis Urine Color Urine Appearance (Clear) Urine pH (4.5-7.5) POC Urine pH 5 (4.5-7.5) Ur Specific [place] (1.000-1.030) Urine Protein (Negative) POC Urine Protein Negative (Negative) Urine Glucose (UA) (Negative) POC Ur Glucose (UA) 500 H (Normal) Urine Ketones (Negative) POC Urine Ketones Negative (Negative) Urine Blood (Negative) POC Urine Blood Negative (Negative) Urine Nitrite (Negative) POC Urine Nitrite Negative (Negative) Urine Bilirubin (Negative) POC Urine Bilirubin Negative (Negative) Urine Urobilinogen (Negative) POC Urine Urobilinogen Normal (Normal) Ur Leukocyte Esterase (Negative) POC U Leukocyte Esteras Negative (Negative) Peritoneal Color PALE YELLOW Peritoneal Appearance CLEAR Peritoneal WBC 73 (0-300) /ul Peritoneal RBC < 3000 /uL Mononuclear WBCs % 88.2 % Polynuclear WBCs % 11.8 % Peritoneal Tot Protein 1.1 g/dl Peritoneal Albumin 0.6 g/dl Peritoneal LDH 62 U/L Peritoneal Glucose 283 mg/dl Peritoneal Amylase 6 U/L Peritoneal Lipase 52 U/L Peritoneal Triglycerid 28 mg/dl ECG Data Attestation: I personally reviewed and interpreted this ECG as follows: Indication: abdominal pain Rate (beats per minute): 88 Rhythm: atrial fibrillation Findings: no PAC, no PVC, no ST depression and no ST elevation Blood Pressure Blood Pressure Findings: Normal blood pressure Blood Pressure Disposition: did not require urgent referral MDM Narrative The patient is a 73 year old male who presents to the emergency department with complaints of constant abdominal pain beginning a few days ago. Patient has a long history of L[place] with recurrent ascites and paracentesis. The patient's last draining was on September 10. The family explains that the fluid recollected very quickly this time. The describes the patient has a home body and states that it is very difficult to convince him to come to the hospital to have it drained. The patient is slightly confused and the family explains that he is sleeping most of the day. This is consistent with hepatic encephalopathy with an ammonia level at 37. The patient has significant hyperglycemia but no evidence of acute infection or SBP. I discussed the case with the [facility] hospitalist and they will evaluate for further management. Impression & Plan Encephalopathy, hepatic, Ascites, Hyperglycemia Discharge Plan Visit Data *Final* Discharge Date/Time: 09/26/18 03:33 Chief Complaint: Abdominal Pain ED Provider: Magdalene Saldaña Discharge Problem: Encephalopathy, hepatic, Ascites, Hyperglycemia Patient Disposition: Home - Self-Care Discharge Instructions Interventions: ED Discharge Assessment Last Done: 09/26/18 03:33 Discharge Problem: Ascites Qualifiers: Ascites type: other type Qualified Code(s): R18.8 - Other ascites The scribe's documentation has been prepared under my direction and personally reviewed by me in its entirety. I confirm that the note above accurately reflects all work, treatment, procedures, and medical decision making performed by me.
== END 2018-09-26 19:33 | disposition home or self-care (01) | DRG 442 ==
LOC: ED 00:01 → 2W 02:45